=== PATIENT | female | born 1965 | race Caucasian/White ===

== ENCOUNTER 2016-08-03 20:39 | Emergency (ER) | payer MEDICAID ==
[2016-08-03] MEDS ORDERED: Albuterol 0.042% 1.25 MG/3 ML Neb Soln NEB ONE (20:49)
[2016-08-03] MEDS ORDERED: methylPREDNISolone Sodium Succinate 125 MG/2 ML SDV IVPUSH STA (20:54)
[2016-08-03] MEDS ORDERED: Sodium Chloride 0.9% 10 ML Syringe FLUSH PRN (20:55)
--- NOTE | 2016-08-03 21:01 | EDM.PDOC ---
ED HPI GENERAL MEDICAL PROBLEM - General Chief Complaint: Respiratory Problem Stated Complaint: SOB Time Seen by Provider: 08/03/16 20:50 Source of Information: Reports: Patient, EMS History Limitations: Reports: No Limitations - History of Present Illness INITIAL COMMENTS - FREE TEXT/NARRATIVE: Was in the clinic earlier today and had right sided rib pain with some anterior pain with movement. Was not SOB while in the clinic. Was started on celebrex and took her first dose at 6:30 with supper and shortly after that she started having SOB. No cough. Sats when she was picked up by ambulance was 84% and after O2 applied it went up to 96%. She hasn't noted any rash with it. When arriving here she states that breathing was better again. Still has the right sided rib pain. Lungs are clear. No wheezing noted. With movement she did become more SOB. Onset: Sudden Location: Reports: Chest Worsens with: Reports: Movement Right Chest Pain Score (Numeric/FACES): 6 - Related Data Allergies Allergy/AdvReac Type Severity Reaction Status Date / Time No Known Allergies Allergy Verified 08/03/16 21:07 Home Meds: Home Meds Gabapentin 600 mg PO TID 03/02/14 [History] traMADol HCl [Tramadol HCl] 1 tab PO Q4H PRN 03/02/14 [History] Cyanocobalamin (Vitamin B12) [Vitamin B12] 1,000 mcg IM Q30D 05/01/14 [History] Albuterol Sulfate [Proair Hfa] 2 puff INH Q4HR PRN 08/12/15 [History] Tiotropium Br/Olodaterol HCl [Stiolto Respimat Inhal [place]] 2 puff INH DAILY 08/20 [History] Past Medical History Other HEENT History: broke her glasses recently, hard to read without them Respiratory History: Reports: Bronchitis, Recurrent, COPD, SOB Other Respiratory History: Goal: to increase her activity with less SOB; says she gets SOB when trying to clean her house; 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 Rice in July Other Gastrointestinal History: says her appetite is good Other OB/BYN History: Adenocarcinoma of cervix; says some of her SOB and weakness has been since her cancer Musculoskeletal History: Reports: Other (See Below) Other Musculoskeletal History: leg nerve pain. Other Neuro History: B12 deficiency per history, headaches Hematologic History: Reports: Anemia Other Oncologic History: cervical cancer - Past Surgical History Female Surgical History: Reports: Hysterectomy Other Musculoskeletal Surgeries/Procedures:: peripheral neuropathy, nerve damage to her legs and arms Social & Family History - Family History Cardiac: Reports: Hypertension - Tobacco Use Smoking Status *Q: Current Every Day Smoker Years of Tobacco use: 30 Packs/Tins Daily: 0.3 Second Hand Smoke Exposure: Yes - Alcohol Use Days Per Week of Alcohol Use: 0 Number of Drinks Per Day: 2 Total Drinks Per Week: 0 - Recreational Drug Use Recreational Drug Use: No ED ROS GENERAL - Review of Systems Review Of Systems: See Below Constitutional: Denies: Fever, Chills Respiratory: Reports: Shortness of Breath. Denies: Cough Cardiovascular: Reports: Chest Pain Endocrine: Denies: Fatigue GI/Abdominal: Denies: Abdominal Pain, Constipation, Diarrhea, Vomiting Musculoskeletal: Reports: No Symptoms Skin: Denies: Rash, Erythema Neurological: Reports: No Symptoms Psychiatric: Reports: No Symptoms ED EXAM, GENERAL - Physical Exam Exam: See Below Exam Limited By: No Limitations General Appearance: Alert, WD/WN, Moderate Distress Ears: Normal External Exam, Normal Canal, Hearing Grossly Normal, Normal TMs Nose: Normal Inspection, Normal Mucosa Throat/Mouth: Normal Inspection, Normal Oropharynx Head: Atraumatic, Normocephalic Neck: Normal Inspection, Supple, Non-Tender, Full Range of Motion Respiratory/Chest: Lungs Clear, Decreased Breath Sounds (to the bases bilaterally), Other (Is using some accessory muscles to breathe.). No: Rales, Rhonchi, Wheezing Cardiovascular: Regular Rate, Rhythm, No Edema, No Murmur GI/Abdominal: Normal Bowel Sounds, Soft, Non-Tender Back Exam: Normal Inspection, Full Range of Motion Extremities: Normal Inspection, Normal Range of Motion, Non-Tender, No Pedal Edema Neurological: Alert, Oriented Psychiatric: Normal Affect Skin Exam: Warm, Dry, Intact Course - Vital Signs Last Recorded V/S: Last Vital Signs Temp 99.1 F 08/03/16 21:52 Pulse 118 H 08/03/16 21:52 Resp 22 H 08/03/16 21:52 BP 131/93 H 08/03/16 21:52 Pulse Ox 93 L 08/03/16 21:52 - Orders/Labs/Meds Orders: Active Orders 24 hr Category Date Time Status RT Aerosol Therapy [RC] ASDIRECTED Care 08/03/16 20:49 Active CXR [Chest 2V] [CR] Stat Exams 08/03/16 20:48 Taken Sodium Chloride 0.9% [Saline Flush] Med 08/03/16 20:55 Active 10 ml FLUSH ASDIRECTED PRN Saline Lock Insert [OM.PC] Routine Oth 08/03/16 20:55 Ordered Medication Orders Sodium Chloride (Saline Flush) 10 ml FLUSH ASDIRECTED PRN PRN Reason: Keep Vein Open Labs: Laboratory Tests 08/03/16 08/03/16 08/03/16 Range/Units 21:05 21:05 21:05 WBC 6.8 (5.0-10.0) 10^3/uL RBC 4.41 (4.00-5.50) 10^6/uL Hgb 14.9 (12.0-16.0) g/dL Hct 45.2 (37.0-47.0) % MCV 102.5 H (82.0-94.0) fL MCH 33.8 H (27.0-32.0) pg MCHC 33.0 (33.0-38.0) g/dL RDW Coeff of Estefanía 12.7 (11.0-15.0) % Plt Count 257 (150-400) 10^3/uL Neut % (Auto) 58.6 (35-85) % Lymph % (Auto) 24.8 (10-55) % [place] % (Auto) 14.3 (0-16) % Eos % (Auto) 1.9 (0-5) % Baso % (Auto) 0.4 (0-3) % Neut # (Auto) 3.96 (1.80-7.00) 10^3/uL Lymph # (Auto) 1.68 (1.00-4.80) 10^3/uL [place] # (Auto) 0.97 H (0.00-0.80) 10^3/uL Eos # (Auto) 0.13 (0.00-0.45) 10^3/uL Baso # (Auto) 0.03 10^3/uL D-Dimer, Quantitative 0.23 (0.00-0.50) Sodium 145 (136-145) mEq/L Potassium 4.0 D (3.5-5.0) mEq/L Chloride 105 (98-106) mEq/L Carbon Dioxide 34 H (21-32) mmol/L BUN 19 H D (7-18) mg/dL Creatinine 0.7 (0.6-1.0) mg/dL Est Cr Clr Drug Dosing 58.57 mL/min Estimated GFR (MDRD) > 60 (>=60) mL/min Glucose 150 H D (75-99) mg/dL Calcium 9.0 (8.4-10.1) mg/dL C-Reactive Protein < 0.2 L (0.2-0.8) mg/dL Meds: Medications Generic Name Dose Route Start Last Admin Trade Name Freq PRN Reason Stop Dose Admin Sodium Chloride 10 ml 08/03/16 20:55 Saline Flush FLUSH ASDIRECTED PRN Keep Vein Open Discontinued Medications Generic Name Dose Route Start Last Admin Trade Name Freq PRN Reason Stop Dose Admin Albuterol 1.25 mg 08/03/16 20:49 08/03/16 20:55 Proventil Neb Soln NEB 08/03/16 20:50 1.25 mg ONETIME ONE Administration Methylprednisolone Sodium Succinate 125 mg 08/03/16 20:54 08/03/16 21:54 Solu-Medrol IVPUSH 08/03/16 20:55 Not Given NOW STA - Re-Assessments/Exams Free Text/Narrative Re-Assessment/Exam: 08/03/16 21:20 Discussed with pt and daughter and sister that she has a spontaneous pneumothorax on the right side that is the cause of the SOB and pain that she is having. Discussed that she would need t go to [place] for chest tubes and further care. 08/03/16 22:05 Did discuss with [facility] [address] Calle is accepting. Will call [facility] for transport 08/03/16 22:15 [facility] is available for ALS transport and will transfer to [facility]. This was discussed with the pt and she is in agreement with the transfer. Risks of staying in [place] would be to extend the pneumothorax and worsening of her breathing. Benefits of transfer do include chest tube and hospitalist that would be able to manage care and determine cause. Departure - Departure Time of Disposition: 22:23 Disposition: DC/Tfer to Acute Hospital 02 Condition: Serious Clinical Impression: Pneumothorax on right - Discharge Information Forms: ED Department Discharge Additional Instructions: Transfer ALS per [facility] to [facility] with Dr. Luc jay MD. - Problem List Review Problem List Initiated/Reviewed/Updated: Yes - My Orders Last 24 Hours: My Active Orders 08/03/16 20:48 CXR [Chest 2V] [CR] Stat 08/03/16 20:49 RT Aerosol Therapy [RC] ASDIRECTED 08/03/16 20:55 Sodium Chloride 0.9% [Saline Flush] 10 ml FLUSH ASDIRECTED PRN Saline Lock Insert [OM.PC] Routine - Assessment/Plan Last 24 Hours: My Active Orders 08/03/16 20:48 CXR [Chest 2V] [CR] Stat 08/03/16 20:49 RT Aerosol Therapy [RC] ASDIRECTED 08/03/16 20:55 Sodium Chloride 0.9% [Saline Flush] 10 ml FLUSH ASDIRECTED PRN Saline Lock Insert [OM.PC] Routine
[2016-08-03 21:17] LABS: CHLORIDE,CL 105 mEq/L (98-106); SODIUM,NA 145 mEq/L (136-145)
[2016-08-03 21:54] VITALS: BP 131/93
== END 2016-08-03 23:55 ==
LOC: CC.ED 20:39
DX: J93.9 Pneumothorax, unspecified (principal); J44.9 Chronic obstructive pulmonary disease, unspecified; F17.210 Nicotine dependence, cigarettes, uncomplicated; Z86.2 Personal history of diseases of the blood and blood-forming organs and certain disorders involving the immune mechanism; Z90.710 Acquired absence of both cervix and uterus; Z85.41 Personal history of malignant neoplasm of cervix uteri; Z79.899 Other long term (current) drug therapy
CPT/HCPCS: 36415; 71020; 80048; 85025; 85379; 86140; 94640; 94644; 99285

== ENCOUNTER 2016-10-19 22:15 | Inpatient (IN) | payer MEDICAID ==
[2016-10-19 22:55] LABS: BICARBONATE,ARTERIAL 25.1 mm/L (22.0-26.0); O2 DELIVERY DEVICE NASAL CANNULA; O2 SATURATION ARTERIAL 97 % (95-98); PCO2 ARTERIAL 35 mm/Hg0 (35-45); PO2 ARTERIAL 81 mm/Hg (80-100)
--- NOTE | 2016-10-19 22:56 | EDM.PDOC ---
ED HPI GENERAL MEDICAL PROBLEM - General Chief Complaint: Respiratory Problem Stated Complaint: SOB Time Seen by Provider: 10/19/16 22:29 Source of Information: Reports: Patient History Limitations: Reports: No Limitations - History of Present Illness INITIAL COMMENTS - FREE TEXT/NARRATIVE: States that she started to cough some 2 days ago and then today the cough got worse and she is now coughing up brownish green mucus today. Has had some shortness of breathe that has progressively become worse today until coming in tonight. Has chills and feels that she has had a temp but has not taken her temp. She had a recent pneumothorax (08/21) that she was sent to [place] for and then had several chest tubes and eventually had partial lobectomy on the right side due to her lung not staying inflated. Denies any sinus congestion or pain , runny nose, states that her voice still sounds raspy from when then "put that tube down my throat" Onset: Gradual Duration: Day(s): (2), Getting Worse Location: Reports: Chest Severity: Severe Improves with: Reports: Rest Worsens with: Reports: Movement Associated Symptoms: Reports: cough w sputum, Fever/Chills, Shortness of Breath. Denies: Diaphoresis, Nausea/Vomiting - Related Data Allergies Allergy/AdvReac Type Severity Reaction Status Date / Time No Known Allergies Allergy Verified 10/19/16 22:18 Home Meds: Home Meds Gabapentin 600 mg PO TID 03/02/14 [History] Cyanocobalamin (Vitamin B12) [Vitamin B12] 1,000 mcg IM Q30D 05/01/14 [History] Albuterol Sulfate [Proair Hfa] 2 puff INH Q4HR PRN 08/12/15 [History] Tiotropium Br/Olodaterol HCl [Stiolto Respimat Inhal [place]] 2 puff INH DAILY 08/20 [History] Fluticasone Furoate [Arnuity Ellipta] 1 puff INH DAILY 10/19/16 [History] Fluticasone Propionate [Flovent] 1 puff INH DAILY 10/19/16 [History] Past Medical History Other HEENT History: broke her glasses recently, hard to read without them Respiratory History: Reports: Bronchitis, Recurrent, COPD, SOB Other Respiratory History: Goal: to increase her activity with less SOB; says she gets SOB when trying to clean her house; 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 Rice in July Other Gastrointestinal History: says her appetite is good Genitourinary History: Reports: None [employer] History: Reports: , Other (See Below) Other OB/BYN History: Adenocarcinoma of cervix; says some of her SOB and weakness has been since her cancer Musculoskeletal History: Reports: Other (See Below) Other Musculoskeletal History: leg nerve pain. Neurological History: Reports: Neuropathy, Peripheral Other Neuro History: B12 deficiency per history, headaches Hematologic History: Reports: Anemia Oncologic (Cancer) History: Reports: Cervix Other Oncologic History: cervical cancer - Past Surgical History Female Surgical History: Reports: Hysterectomy Other Musculoskeletal Surgeries/Procedures:: peripheral neuropathy, nerve damage to her legs and arms Social & Family History - Family History Family Medical History: Noncontributory Cardiac: Reports: Hypertension - Tobacco Use Smoking Status *Q: Former Smoker Years of Tobacco use: 30 Packs/Tins Daily: 0.3 Used Tobacco, but Quit: Yes Month Tobacco Last Used: 3 MONTHS AGO Second Hand Smoke Exposure: Yes - Alcohol Use Days Per Week of Alcohol Use: 0 Number of Drinks Per Day: 2 Total Drinks Per Week: 0 - Recreational Drug Use Recreational Drug Use: No ED ROS GENERAL - Review of Systems Review Of Systems: See Below Constitutional: Reports: Fever, Chills, Weakness HEENT: Reports: No Symptoms Respiratory: Reports: Shortness of Breath, Cough, Sputum Cardiovascular: Reports: No Symptoms GI/Abdominal: Denies: Constipation, Diarrhea : Reports: No Symptoms Musculoskeletal: Reports: No Symptoms Skin: Reports: No Symptoms Neurological: Reports: No Symptoms ED EXAM, GENERAL - Physical Exam Exam: See Below Exam Limited By: No Limitations General Appearance: Alert, WD/WN, Moderate Distress Ears: Normal External Exam, Normal Canal Nose: Normal Inspection Throat/Mouth: Normal Inspection, Normal Oropharynx Head: Atraumatic, Normocephalic Neck: Normal Inspection, Supple, Non-Tender, Full Range of Motion Respiratory/Chest: Lungs Clear (left ), Decreased Breath Sounds (right upper lobe), Rhonchi (right lower lobe), Other (well healed scars noted to the right lateral chest wall.) Cardiovascular: Regular Rate, Rhythm, No Murmur GI/Abdominal: Normal Bowel Sounds, Soft, Non-Tender, No Organomegaly Back Exam: Normal Inspection, Full Range of Motion Extremities: Normal Inspection, Non-Tender, No Pedal Edema, Normal Capillary Refill Neurological: Alert, Oriented Skin Exam: Warm, Dry, Intact Course - Vital Signs Last Recorded V/S: Last Vital Signs Temp 99.9 F 10/19/16 22:29 Pulse 117 H 10/19/16 22:29 Resp 24 H 10/19/16 22:29 BP 143/82 H 10/19/16 22:29 Pulse Ox 87 L 10/19/16 22:29 - Orders/Labs/Meds Orders: Active Orders 24 hr Category Date Time Status Chest 2V [CR] Stat Exams 10/19/16 22:24 Taken BASIC METABOLIC PANEL,BMP [CHEM] Stat Lab 10/19/16 22:24 Ordered BLOOD GAS ARTERIAL [BG] Stat Lab 10/19/16 22:24 Ordered CBC WITH AUTO DIFF [HEME] Stat Lab 10/19/16 22:24 Ordered - Re-Assessments/Exams Free Text/Narrative Re-Assessment/Exam: 10/19/16 22:46 Discussed xray result with Dr. Jay from radiology that she has a right sided pneumonia but no recurrent pneumothorax. 10/19/16 22:55 Discussed with pt and family results of CXR and that she would need to be admitted and put on IV antibiotics and fluids. Blood cultures will be obtained as well as sputum cultures if able. Departure - Departure Time of Disposition: 23:09 Disposition: Admitted As Inpatient 64 Condition: Serious Clinical Impression: Pneumonia Qualifiers: Pneumonia type: due to unspecified organism Laterality: right Lung location: lower lobe of lung Qualified Code(s): J18.1 - Lobar pneumonia, unspecified organism - Discharge Information Referrals: Mavis Shine PA [Primary Care Provider] - - Problem List & Annotations (1) Pneumonia SNOMED Code(s): 506035076 Code(s): J18.9 - PNEUMONIA, UNSPECIFIED ORGANISM Status: Acute Priority: High Current Visit: Yes Qualifiers: Pneumonia type: due to unspecified organism Laterality: right Lung location: lower lobe of lung Qualified Code(s): J18.1 - Lobar pneumonia, unspecified organism (2) Dyspnea SNOMED Code(s): 631793853 Code(s): R06.00 - DYSPNEA, UNSPECIFIED Status: Acute Priority: High Current Visit: Yes Onset Date: 03/22/15 Qualifiers: Dyspnea type: shortness of breath Qualified Code(s): R06.02 - Shortness of breath (3) Fever and chills SNOMED Code(s): 761173787 Code(s): R50.9 - FEVER, UNSPECIFIED Status: Acute Priority: High Current Visit: Yes (4) Hypoxia SNOMED Code(s): 269399325, 765023586 Code(s): R09.02 - HYPOXEMIA Status: Acute Priority: High Current Visit : Yes Onset Date: 03/22/15 - Problem List Review Problem List Initiated/Reviewed/Updated: Yes - My Orders Last 24 Hours: My Active Orders 10/19/16 22:24 Chest 2V [CR] Stat BASIC METABOLIC PANEL,BMP [CHEM] Stat BLOOD GAS ARTERIAL [BG] Stat CBC WITH AUTO DIFF [HEME] Stat - Assessment/Plan Admission H&P: Please use this note as an admission H&P Last 24 Hours: My Active Orders 10/19/16 22:24 Chest 2V [CR] Stat BASIC METABOLIC PANEL,BMP [CHEM] Stat BLOOD GAS ARTERIAL [BG] Stat CBC WITH AUTO DIFF [HEME] Stat Plan: admit to acute care to Dr. Beck services
[2016-10-19 22:58] LABS: CHLORIDE,CL 105 mEq/L (98-106); SODIUM,NA 143 mEq/L (136-145)
[2016-10-19] MEDS ORDERED: Ibuprofen 200 MG Tab PO PRN (23:27)
[2016-10-19] MEDS ORDERED: Sodium Chloride 0.9% 10 ML Syringe FLUSH PRN (23:27)
[2016-10-19] MEDS ORDERED: methylPREDNISolone Sodium Succinate 125 MG/2 ML SDV IVPUSH SCH (23:30)
[2016-10-19] MEDS ORDERED: Azithromycin 500 MG in Sodium Chloride 0.9% 250 ML IV SCH (23:30)
[2016-10-20] MEDS: Acetaminophen 325 MG Tab PO PRN ×2 (00:19→16:02)
[2016-10-20] MEDS: cefTRIAXone 1 GM Vial IVPUSH SCH ×2 (00:22→23:53)
[2016-10-20] MEDS: Lactated Ringers 1,000 ML IV SCH ×2 (00:23→11:45)
[2016-10-20] MEDS: Enoxaparin 30 MG/0.3 ML Syringe SUBCUT SCH ×2 (00:25→23:53)
[2016-10-20] MEDS: Albuterol/Ipratropium 3.0-0.5 MG/3 ML Neb Soln NEB SCH ×5 (04:28→20:04)
[2016-10-20] MEDS ORDERED: ARNUITY ELLIPTA INH SCH (08:00)
[2016-10-20] MEDS ORDERED: Mirtazapine 15 MG Tab PO SCH (08:00)
[2016-10-20] MEDS ORDERED: Non-Formulary Medication 1 Each (Fluticasone Propionate [Flovent] 1 PUFF) INH SCH (08:00)
[2016-10-20] MEDS: Gabapentin 300 MG Cap PO SCH ×3 (08:09→20:04)
[2016-10-20] MEDS ORDERED: Iopamidol 612 MG/ML 100 ML Bottle IVPUSH ONE (08:57)
--- NOTE | 2016-10-20 09:41 | PN ---
DATE: 10/20/2016 S: Sraanya Michelle was admitted with a right upper lobe pneumonitis and high C- reactive protein. O: On examination, NECK: Supple. CHEST: Crepitus throughout the upper lobe, wheezing throughout. ASSESSMENT: PNEUMONITIS AND CHRONIC OBSTRUCTIVE PULMONARY DISEASE. P: I am going to CT her chest and look better this area. FER/ADRIA /[id number]
[2016-10-20] MEDS: TIOTROPIUM INH SCH (13:45)
[2016-10-20] MEDS: OLODATEROL INH SCH (13:45)
[2016-10-20] MEDS: ARNUITY ELLIPTA INH SCH (16:02)
[2016-10-20] MEDS ORDERED: methylPREDNISolone Sodium Succinate 125 MG/2 ML SDV IVPUSH ONE (16:30)
[2016-10-20] MEDS: Mirtazapine 15 MG Tab PO SCH (20:03)
[2016-10-20] MEDS: Azithromycin 500 MG in Sodium Chloride 0.9% 250 ML IV SCH (20:04)
--- NOTE | 2016-10-21 07:17 | PCM.PN ---
- General Info Date of Service: 10/21/16 Functional Status: Reports: Pain Controlled, Tolerating Diet - Review of Systems General: Reports: No Symptoms HEENT: Reports: Post Nasal Drip, Sinus Congestion, Rhinitis Pulmonary: Reports: Shortness of Breath, Cough, Sputum Cardiovascular: Reports: No Symptoms Gastrointestinal: Reports: No Symptoms Genitourinary: Reports: No Symptoms Musculoskeletal: Reports: No Symptoms Skin: Reports: No Symptoms Neurological: Reports: No Symptoms Psychiatric: Reports: No Symptoms - Patient Data Vitals - Most Recent: Last Vital Signs Temp 97.0 F 10/21/16 03:57 Pulse 74 10/21/16 03:57 Resp 18 10/21/16 03:57 BP 110/65 10/21/16 03:57 Pulse Ox 98 10/21/16 03:57 Weight - Most Recent: 101 lb 13.657 oz I&O - Last 24 Hours: Intake & Output 10/20/16 10/21/16 10/21/16 22:59 06:59 14:59 Intake Total 1200 860 Output Total 750 1500 Balance 450 -640 Lab Results Last 24 Hours: Laboratory Results - last 24 hr 10/20/16 10/20/16 Range/Units 07:10 07:15 WBC 9.0 (5.0-10.0) 10^3/uL RBC 3.32 L (4.00-5.50) 10^6/uL Hgb 10.2 L (12.0-16.0) g/dL Hct 31.9 L (37.0-47.0) % MCV 96.1 H (82.0-94.0) fL MCH 30.7 (27.0-32.0) pg MCHC 32.0 L (33.0-38.0) g/dL RDW Coeff of Estefanía 11.7 (11.0-15.0) % Plt Count 317 (150-400) 10^3/uL Neut % (Auto) 94.5 H (35-85) % Lymph % (Auto) 4.3 L (10-55) % [place] % (Auto) 1.0 (0-16) % Eos % (Auto) 0.1 (0-5) % Baso % (Auto) 0.1 (0-3) % Neut # (Auto) 8.51 H (1.80-7.00) 10^3/uL Lymph # (Auto) 0.39 L (1.00-4.80) 10^3/uL [place] # (Auto) 0.09 (0.00-0.80) 10^3/uL Eos # (Auto) 0.01 (0.00-0.45) 10^3/uL Baso # (Auto) 0.01 10^3/uL Magnesium 1.9 (1.8-2.4) mg/dL [place] Results Last 24 Hours: Microbiology 10/20/16 09:19 Gram Stain - Final Sputum - Expectorated Med Orders - Current: Current Medications Acetaminophen (Tylenol) 650 mg PO Q4H PRN PRN Reason: Pain (Mild 1-3)/fever Last Admin: 10/20/16 16:02 Dose: 650 mg Albuterol/Ipratropium (Duoneb 3.0-0.5 Mg/3 Ml) 3 ml NEB QIDRT [facility] Last Admin: 10/20/16 20:04 Dose: 3 ml Ceftriaxone Sodium (Rocephin) 1 gm IVPUSH Q24H [facility] Last Admin: 10/20/16 23:53 Dose: 1 gm Enoxaparin Sodium (Lovenox) 30 mg SUBCUT Q24H [facility] Last Admin: 10/20/16 23:53 Dose: 30 mg Gabapentin (Neurontin) 600 mg PO TID [facility] Last Admin: 10/20/16 20:04 Dose: 600 mg Lactated Ringer's (Ringers, Lactated) 1,000 mls @ 100 mls/hr IV ASDIRECTED [facility] Last Admin: 10/20/16 11:45 Dose: 100 mls/hr Azithromycin 500 mg/ Sodium (Chloride) 250 mls @ 250 mls/hr IV Q24H [facility] Last Admin: 10/20/16 20:04 Dose: 250 mls/hr Ibuprofen (Motrin) 600 mg PO Q6H PRN PRN Reason: Pain (mild 1-3) Methylprednisolone Sodium Succinate (Solu-Medrol) 62.5 mg IVPUSH Q24H [facility] Mirtazapine (Remeron) 15 mg PO BEDTIME [facility] Last Admin: 10/20/16 20:03 Dose: 15 mg Ptoml [Stiolto (Respimat Inhal [place]) 2 puff INH DAILY [facility] Last Admin: 10/20/16 13:45 Dose: 2 puff Ptom [Arnuity (Ellipta] 1 Puff)) 1 puff INH 1600 [facility] Last Admin: 10/20/16 16:02 Dose: 1 puff Sodium Chloride (Saline Flush) 10 ml FLUSH ASDIRECTED PRN PRN Reason: Keep Vein Open Last Admin: 10/20/16 00:27 Dose: 10 ml Discontinued Medications Azithromycin 500 mg/ Sodium (Chloride) 250 mls @ 250 mls/hr IV Q24H [facility] Last Admin: 10/20/16 00:26 Dose: 250 mls/hr Iopamidol (Isovue-300 (61%)) 100 ml IVPUSH ONETIME ONE Stop: 10/20/16 08:58 Last Admin: 10/20/16 09:23 Dose: 100 ml Methylprednisolone Sodium Succinate (Solu-Medrol) 62.5 mg IVPUSH Q24H [facility] Last Admin: 10/20/16 00:19 Dose: 62.5 mg Methylprednisolone Sodium Succinate (Solu-Medrol) 62.5 mg IVPUSH ONETIME ONE Stop: 10/20/16 16:31 Last Admin: 10/20/16 17:36 Dose: 62.5 mg Mirtazapine (Remeron) 15 mg PO DAILY [place] Ptom [Arnuity (Ellipta] 1 Puff)) 1 puff INH DAILY [facility] Last Admin: 10/20/16 16:03 Dose: Not Given - Exam Quality Assessment: Supplemental Oxygen General: Alert, Oriented, Cooperative, No Acute Distress Lungs: Decreased Breath Sounds (moderate) Cardiovascular: Regular Rate, Regular Rhythm GI/Abdominal Exam: Soft, Non-Tender Extremities: Normal Inspection, Normal Range of Motion, Non-Tender, No Pedal Edema, Normal Capillary Refill Peripheral Pulses: 2+: Posterior Tibial (L), Posterior Tibial (R) Skin: Warm, Dry, Intact Neurological: No New Focal Deficit, Normal Speech Psy/Mental Status: Alert, Normal Affect, Normal Mood - Problem List Review Problem List Initiated/Reviewed/Updated: Yes - Plan Plan:: This patient is a 51 year old female that was admitted to the hospital with pneumonia, dypsnea, and oxygen saturations down to 80s. The patient is currently on breathing treatments and antibiotics. The patient today is saturation of 90% on RA, 93% on 2L NC. When I enter the room this morning, she is not wearing oxygen. She does keep removing this oxygen. The patient does not have breathing treatments at home. The patient does report that being here and doing the breathing treatments has helped her breathing. I discussed with PCP yesterday, the plan is the patient will stay until Sunday when he can see her again. The patient is conversing in full and complete sentences without difficulty. The patient is alert and oriented. I have ordered labs for this morning. Will continue abx treatment, breathing treatments, and admit until Sunday for PCP.
[2016-10-21 07:59] LABS: CHLORIDE,CL 109 mEq/L (98-106); SODIUM,NA 146 mEq/L (136-145)
[2016-10-21] MEDS: Gabapentin 300 MG Cap PO SCH ×3 (08:54→20:00)
[2016-10-21] MEDS: methylPREDNISolone Sodium Succinate 125 MG/2 ML SDV IVPUSH SCH (08:55)
[2016-10-21] MEDS: Lactated Ringers 1,000 ML IV SCH ×2 (08:56→20:00)
[2016-10-21] MEDS: Albuterol/Ipratropium 3.0-0.5 MG/3 ML Neb Soln NEB SCH ×4 (08:56→20:00)
[2016-10-21] MEDS: TIOTROPIUM INH SCH (08:57)
[2016-10-21] MEDS: OLODATEROL INH SCH (08:57)
[2016-10-21] MEDS: ARNUITY ELLIPTA INH SCH (16:04)
[2016-10-21] MEDS: Mirtazapine 15 MG Tab PO SCH (20:00)
[2016-10-21] MEDS: Azithromycin 500 MG in Sodium Chloride 0.9% 250 ML IV SCH (20:00)
[2016-10-22] MEDS: cefTRIAXone 1 GM Vial IVPUSH SCH ×2 (00:18→23:47)
[2016-10-22] MEDS: Enoxaparin 30 MG/0.3 ML Syringe SUBCUT SCH ×2 (00:18→23:47)
[2016-10-22 07:37] LABS: CHLORIDE,CL 109 mEq/L (98-106); SODIUM,NA 147 mEq/L (136-145)
[2016-10-22] MEDS: Acetaminophen 325 MG Tab PO PRN (08:10)
[2016-10-22] MEDS: Gabapentin 300 MG Cap PO SCH ×3 (08:11→19:48)
[2016-10-22] MEDS: methylPREDNISolone Sodium Succinate 125 MG/2 ML SDV IVPUSH SCH (08:11)
[2016-10-22] MEDS: TIOTROPIUM INH SCH (08:12)
[2016-10-22] MEDS: Albuterol/Ipratropium 3.0-0.5 MG/3 ML Neb Soln NEB SCH ×4 (08:12→20:07)
[2016-10-22] MEDS: OLODATEROL INH SCH (08:12)
--- NOTE | 2016-10-22 12:31 | PCM.PN ---
- General Info Date of Service: 10/22/16 Functional Status: Reports: Pain Controlled - Review of Systems General: Reports: No Symptoms HEENT: Reports: No Symptoms Pulmonary: Reports: Shortness of Breath, Cough, Sputum Cardiovascular: Reports: No Symptoms Gastrointestinal: Reports: No Symptoms Genitourinary: Reports: No Symptoms Musculoskeletal: Reports: No Symptoms Skin: Reports: No Symptoms Neurological: Reports: No Symptoms Psychiatric: Reports: No Symptoms - Patient Data Vitals - Most Recent: Last Vital Signs Temp 97.8 F 10/22/16 07:54 Pulse 92 10/22/16 07:54 Resp 18 10/22/16 07:54 BP 114/81 10/22/16 07:54 Pulse Ox 96 10/22/16 07:54 Weight - Most Recent: 101 lb 4.8 oz I&O - Last 24 Hours: Intake & Output 10/21/16 10/22/16 10/22/16 22:59 06:59 14:59 Intake Total 2900 860 300 Output Total 1800 1000 Balance 1100 -140 300 Lab Results Last 24 Hours: Laboratory Results - last 24 hr 10/22/16 10/22/16 Range/Units 07:15 07:15 WBC 6.6 (5.0-10.0) 10^3/uL RBC 3.28 L (4.00-5.50) 10^6/uL Hgb 9.9 L (12.0-16.0) g/dL Hct 32.3 L (37.0-47.0) % MCV 98.5 H (82.0-94.0) fL MCH 30.2 (27.0-32.0) pg MCHC 30.7 L (33.0-38.0) g/dL RDW Coeff of Estefanía 12.0 (11.0-15.0) % Plt Count 351 (150-400) 10^3/uL Neut % (Auto) 66.0 (35-85) % Lymph % (Auto) 21.5 (10-55) % [place] % (Auto) 11.2 (0-16) % Eos % (Auto) 1.1 (0-5) % Baso % (Auto) 0.2 (0-3) % Neut # (Auto) 4.38 (1.80-7.00) 10^3/uL Lymph # (Auto) 1.42 (1.00-4.80) 10^3/uL [place] # (Auto) 0.74 (0.00-0.80) 10^3/uL Eos # (Auto) 0.07 (0.00-0.45) 10^3/uL Baso # (Auto) 0.01 10^3/uL Sodium 147 H (136-145) mEq/L Potassium 3.6 (3.5-5.0) mEq/L Chloride 109 H (98-106) mEq/L Carbon Dioxide 32 (21-32) mmol/L BUN 11 (7-18) mg/dL Creatinine 0.5 L (0.6-1.0) mg/dL Est Cr Clr Drug Dosing 94.39 mL/min Estimated GFR (MDRD) > 60 (>=60) mL/min Glucose 92 D (75-99) mg/dL Calcium 8.5 (8.4-10.1) mg/dL C-Reactive Protein 6.2 H (0.2-0.8) mg/dL [place] Results Last 24 Hours: Microbiology 10/20/16 09:19 Gram Stain - Final Sputum - Expectorated Sputum Culture - Preliminary Probable Strep Pneumoniae Med Orders - Current: Current Medications Acetaminophen (Tylenol) 650 mg PO Q4H PRN PRN Reason: Pain (Mild 1-3)/fever Last Admin: 10/22/16 08:10 Dose: 650 mg Albuterol/Ipratropium (Duoneb 3.0-0.5 Mg/3 Ml) 3 ml NEB QIDRT [facility] Last Admin: 10/22/16 08:12 Dose: 3 ml Ceftriaxone Sodium (Rocephin) 1 gm IVPUSH Q24H [facility] Last Admin: 10/22/16 00:18 Dose: 1 gm Enoxaparin Sodium (Lovenox) 30 mg SUBCUT Q24H [facility] Last Admin: 10/22/16 00:18 Dose: 30 mg Gabapentin (Neurontin) 600 mg PO TID [facility] Last Admin: 10/22/16 08:11 Dose: 600 mg Lactated Ringer's (Ringers, Lactated) 1,000 mls @ 100 mls/hr IV ASDIRECTED [facility] Last Admin: 10/21/16 20:00 Dose: 100 mls/hr Azithromycin 500 mg/ Sodium (Chloride) 250 mls @ 250 mls/hr IV Q24H [facility] Last Admin: 10/21/16 20:00 Dose: 250 mls/hr Ibuprofen (Motrin) 600 mg PO Q6H PRN PRN Reason: Pain (mild 1-3) Methylprednisolone Sodium Succinate (Solu-Medrol) 62.5 mg IVPUSH Q24H [facility] Last Admin: 10/22/16 08:11 Dose: 62.5 mg Mirtazapine (Remeron) 15 mg PO BEDTIME [facility] Last Admin: 10/21/16 20:00 Dose: 15 mg Ptoml [Stiolto (Respimat Inhal Spra) 2 puff INH DAILY [facility] Last Admin: 10/22/16 08:12 Dose: 2 puff Ptom [Arnuity (Ellipta] 1 Puff)) 1 puff INH 1600 [facility] Last Admin: 10/21/16 16:04 Dose: 1 puff Sodium Chloride (Saline Flush) 10 ml FLUSH ASDIRECTED PRN PRN Reason: Keep Vein Open Last Admin: 10/20/16 00:27 Dose: 10 ml Discontinued Medications Azithromycin 500 mg/ Sodium (Chloride) 250 mls @ 250 mls/hr IV Q24H [facility] Last Admin: 10/20/16 00:26 Dose: 250 mls/hr Iopamidol (Isovue-300 (61%)) 100 ml IVPUSH ONETIME ONE Stop: 10/20/16 08:58 Last Admin: 10/20/16 09:23 Dose: 100 ml Methylprednisolone Sodium Succinate (Solu-Medrol) 62.5 mg IVPUSH Q24H [facility] Last Admin: 10/20/16 00:19 Dose: 62.5 mg Methylprednisolone Sodium Succinate (Solu-Medrol) 62.5 mg IVPUSH ONETIME ONE Stop: 10/20/16 16:31 Last Admin: 10/20/16 17:36 Dose: 62.5 mg Mirtazapine (Remeron) 15 mg PO DAILY [facility] Ptom [Arnuity (Ellipta] 1 Puff)) 1 puff INH DAILY [facility] Last Admin: 10/20/16 16:03 Dose: Not Given - Exam Quality Assessment: Supplemental Oxygen General: Alert, Oriented, Cooperative, No Acute Distress Neck: Supple Lungs: Decreased Breath Sounds (moderately throughout), Wheezing Cardiovascular: Regular Rate, Regular Rhythm GI/Abdominal Exam: Soft, Non-Tender Back Exam: Normal Inspection, Full Range of Motion Extremities: Normal Inspection, Normal Range of Motion, Non-Tender, No Pedal Edema, Normal Capillary Refill Peripheral Pulses: 2+: Radial (L), Radial (R) Skin: Warm, Dry, Intact Neurological: No New Focal Deficit Psy/Mental Status: Alert, Normal Affect, Normal Mood - Problem List Review Problem List Initiated/Reviewed/Updated: Yes - Plan Plan:: 10/21/16 When I enter the room this morning, she is not wearing oxygen. She does keep removing this oxygen. The patient does not have breathing treatments at home. The patient does report that being here and doing the breathing treatments has helped her breathing. I discussed with PCP yesterday, the plan is the patient will stay until Sunday when he can see her again. The patient is conversing in full and complete sentences without difficulty. I have ordered labs for this morning. Will continue abx treatment, breathing treatments, and admit until Sunday for PCP. This patient is a 51 year old female that was admitted to the hospital with pneumonia, dypsnea, and oxygen saturations down to 80s. The patient is currently on breathing treatments and antibiotics. The patient today is saturation of 90% on RA, 93% on 2L NC.The patient is alert and oriented. I have ordered labs for this morning. Will continue abx treatment, breathing treatments , and admit until Sunday for PCP. The patient reports she is feeling better than yesterday. She has been able to get up and wal around the halls without oxygen, she does become short of breath more so when doing this and has to take periods of rest.
[2016-10-22] MEDS: ARNUITY ELLIPTA INH SCH (16:24)
[2016-10-22] MEDS: Azithromycin 500 MG in Sodium Chloride 0.9% 250 ML IV SCH (19:47)
[2016-10-22] MEDS: Mirtazapine 15 MG Tab PO SCH (19:47)
[2016-10-23 07:30] VITALS: BP 117/77
[2016-10-23 07:58] LABS: CHLORIDE,CL 108 mEq/L (98-106); SODIUM,NA 146 mEq/L (136-145)
[2016-10-23] MEDS: Gabapentin 300 MG Cap PO SCH (08:27)
[2016-10-23] MEDS: methylPREDNISolone Sodium Succinate 125 MG/2 ML SDV IVPUSH SCH (08:28)
[2016-10-23] MEDS: Albuterol/Ipratropium 3.0-0.5 MG/3 ML Neb Soln NEB SCH (08:29)
[2016-10-23] MEDS: TIOTROPIUM INH SCH (08:29)
[2016-10-23] MEDS: OLODATEROL INH SCH (08:29)
--- NOTE | 2016-10-23 14:20 | DISCH ---
HOSPITAL COURSE: Saranya Michelle is a young white female came in with moderate severe COPD and the right upper lobe pneumonitis. I did do a CT scan of her chest just to look at that area better, that is pending. On admission, hemoglobin 11.2, discharge time at 10.3. C-reactive protein on admission was 33.7, prior to discharge 3.9. Panel-8 looked good. Potassium a little bit low prior to discharge, but everything else looks fine. DISPOSITION: The patient now discharged home. We will check her back in the clinic on Sunday. I did do an anemia workup which is pending. DISCHARGE MEDICATIONS: Home medications plus Levaquin 500 mg daily for 7 days. DISCHARGE DIAGNOSIS: 1. PNEUMONIA. 2. CHRONIC OBSTRUCTIVE PULMONARY DISEASE. 3. ANEMIA. MIRELA /[id number]
== END 2016-10-23 09:53 | disposition home or self-care (01) | DRG 195 ==
LOC: CC.ED 22:15 → UNDOADMIN 23:25 → CC.MS 23:25
PROVIDERS: ADMIT Physician Assistant Medical; ATTEND General Practice
DX: J18.9 Pneumonia, unspecified organism (principal); J44.9 Chronic obstructive pulmonary disease, unspecified; G62.9 Polyneuropathy, unspecified; Z87.891 Personal history of nicotine dependence; R50.9 Fever, unspecified; R09.02 Hypoxemia; D64.9 Anemia, unspecified; Z90.2 Acquired absence of lung [part of]; Z79.899 Other long term (current) drug therapy; Z85.41 Personal history of malignant neoplasm of cervix uteri
CPT/HCPCS: 36415; 36600; 71020; 71260; 80048; 82607; 82746; 82803; 83735; 85025; 85651; 86140; 87040; 87070; 87205; 94640; 94640-76; 99285; A9270-GY; J0456; J0696; J1650; J2930; J7050; J7120; Q9967

== ENCOUNTER 2017-02-12 09:25 | Emergency (ER) | payer MEDICAID ==
[2017-02-12] MEDS ORDERED: fentaNYL 100 MCG/2 ML SDV IVPUSH ONE (09:46)
[2017-02-12 10:05] LABS: CHLORIDE,CL 102 mEq/L (98-106); SODIUM,NA 139 mEq/L (136-145)
[2017-02-12 10:09] VITALS: BP 115/82
--- NOTE | 2017-02-12 10:54 | EDM.PDOC ---
ED HPI GENERAL MEDICAL PROBLEM - General Chief Complaint: Chest Pain Stated Complaint: HARD TIME BREATHING Time Seen by Provider: 02/12/17 09:35 Source of Information: Reports: Patient History Limitations: Reports: No Limitations - History of Present Illness INITIAL COMMENTS - FREE TEXT/NARRATIVE: Patient presents with shortness of breath and right chest pain. States the pain is very sharp, awoke her around 5 am today. The pain is around the area from her previous lobectomy that she had done due to a spontaneous pneumothorax. Patient does have issues with shortness of breath, feels it is worse today. Hasn't had a cough, no wheezing or fever. She admits to being nauseated at times but feels related to pain. Was in to see Dr. Beck after , was not having this pain at that time but they did do a follow up CT as recommended. States they called this am and advised her that she needed to be seen next week to discuss with Dr. Beck but questioning results now today. Onset: Today, Sudden Duration: Hour(s): Location: Reports: Chest Quality: Reports: Sharp, Throbbing Severity: Severe Improves with: Reports: None Associated Symptoms: Reports: Loss of Appetite, Nausea/Vomiting, Shortness of Breath. Denies: Cough, cough w sputum, Fever/Chills R SIDE/RIB Pain Score (Numeric/FACES): 10 - Related Data Allergies Allergy/AdvReac Type Severity Reaction Status Date / Time No Known Allergies Allergy Verified 02/12/17 10:18 Home Meds: Home Meds Gabapentin 600 mg PO TID 03/02/14 [History] Cyanocobalamin (Vitamin B12) [Vitamin B12] 1,000 mcg IM Q30D 05/01/14 [History] Albuterol Sulfate [Proair Hfa] 2 puff INH Q4HR PRN 08/12/15 [History] Tiotropium Br/Olodaterol HCl [Stiolto Respimat Inhal [place]] 2 puff INH DAILY 08/20 [History] Fluticasone Furoate [Arnuity Ellipta] 1 puff INH DAILY 10/19/16 [History] Mirtazapine 15 mg PO BEDTIME 10/19/16 [History] Past Medical History HEENT History: Reports: Impaired Vision Other HEENT History: broke her glasses recently, hard to read without them Cardiovascular History: Reports: SOB on Exertion Respiratory History: Reports: Bronchitis, Recurrent, COPD, Pneumonia, Recurrent , Pneumothorax, SOB Other Respiratory History: Goal: to increase her activity with less SOB; says she gets SOB when trying to clean her house; 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 Neurological History: Reports: Neuropathy, Peripheral Other Neuro History: B12 deficiency per history, headaches Psychiatric History: Reports: Anxiety, Depression Hematologic History: Reports: Anemia Oncologic (Cancer) History: Reports: Cervix Other Oncologic History: cervical cancer - Past Surgical History Respiratory Surgical History: Reports: Pneumonectomy GI Surgical History: Reports: Appendectomy Female Surgical History: Reports: Hysterectomy Other Musculoskeletal Surgeries/Procedures:: peripheral neuropathy, nerve damage to her legs and arms Social & Family History - Family History Family Medical History: Noncontributory Cardiac: Reports: Hypertension - Tobacco Use Smoking Status *Q: Former Smoker Years of Tobacco use: 30 Packs/Tins Daily: 0.3 Used Tobacco, but Quit: Yes Month Tobacco Last Used: july 2016 Second Hand Smoke Exposure: Yes - Caffeine Use Caffeine Use: Reports: Coffee - Alcohol Use Days Per Week of Alcohol Use: 0 Number of Drinks Per Day: 2 Total Drinks Per Week: 0 - Recreational Drug Use Recreational Drug Use: No ED ROS GENERAL - Review of Systems Review Of Systems: See Below Constitutional: Reports: Decreased Appetite. Denies: Fever, Chills, Malaise, Weakness, Weight Loss HEENT: Denies: Ear Pain, Sinus Problem, Throat Pain Respiratory: Reports: Shortness of Breath, Pleuritic Chest Pain. Denies: Wheezing, Cough, Hemoptysis Cardiovascular: Denies: Chest Pain, Edema, Lightheadedness Endocrine: Denies: Fatigue GI/Abdominal: Reports: Nausea. Denies: Abdominal Pain, Vomiting : Reports: No Symptoms Musculoskeletal: Reports: Back Pain Skin: Reports: No Symptoms Neurological: Reports: No Symptoms Psychiatric: Reports: No Symptoms ED EXAM, GENERAL - Physical Exam Exam: See Below Exam Limited By: No Limitations General Appearance: Alert, WD/WN, No Apparent Distress Ears: Normal External Exam, Normal TMs Nose: Normal Inspection, Normal Mucosa Throat/Mouth: Normal Inspection, Normal Oropharynx Head: Normocephalic Neck: Normal Inspection, Supple, Non-Tender Respiratory/Chest: No Respiratory Distress, Lungs Clear, Decreased Breath Sounds Cardiovascular: Regular Rate, Rhythm GI/Abdominal: Normal Bowel Sounds, Soft, Non-Tender Extremities: Normal Range of Motion Neurological: Alert, Oriented Skin Exam: Warm, Dry Course - Vital Signs Last Recorded V/S: Last Vital Signs Temp 97.5 F 02/12/17 10:08 Pulse 98 02/12/17 10:08 Resp 20 02/12/17 10:08 BP 115/82 02/12/17 10:08 Pulse Ox 92 L 02/12/17 10:08 - Orders/Labs/Meds Labs: Laboratory Tests 02/12/17 02/12/17 02/12/17 Range/Units 09:44 09:45 09:45 WBC 7.7 (5.0-10.0) 10^3/uL RBC 4.45 (4.00-5.50) 10^6/uL Hgb 13.3 (12.0-16.0) g/dL Hct 41.2 (37.0-47.0) % MCV 92.6 (82.0-94.0) fL MCH 29.9 (27.0-32.0) pg MCHC 32.3 L (33.0-38.0) g/dL RDW Coeff of Estefanía 12.7 (11.0-15.0) % Plt Count 327 (150-400) 10^3/uL Neut % (Auto) 66.6 (35-85) % Lymph % (Auto) 16.1 (10-55) % [place] % (Auto) 11.5 (0-16) % Eos % (Auto) 5.3 H (0-5) % Baso % (Auto) 0.5 (0-3) % Neut # (Auto) 5.15 (1.80-7.00) 10^3/uL Lymph # (Auto) 1.25 (1.00-4.80) 10^3/uL [place] # (Auto) 0.89 H (0.00-0.80) 10^3/uL Eos # (Auto) 0.41 (0.00-0.45) 10^3/uL Baso # (Auto) 0.04 10^3/uL D-Dimer, Quantitative 0.49 (0.00-0.50) Sodium 139 (136-145) mEq/L Potassium 3.9 (3.5-5.0) mEq/L Chloride 102 (98-106) mEq/L Carbon Dioxide 29 (21-32) mmol/L BUN 20 H D (7-18) mg/dL Creatinine 0.7 (0.6-1.0) mg/dL Est Cr Clr Drug Dosing 73.21 mL/min Estimated GFR (MDRD) > 60 (>=60) mL/min Glucose 109 H (75-99) mg/dL Calcium 9.4 (8.4-10.1) mg/dL C-Reactive Protein 1.5 H (0.2-0.8) mg/dL Meds: Medications Discontinued Medications Generic Name Dose Route Start Last Admin Trade Name Freq PRN Reason Stop Dose Admin Fentanyl 25 mcg 02/12/17 09:46 02/12/17 10:00 Sublimaze IVPUSH 02/12/17 09:47 25 mcg ONETIME ONE Administration - Re-Assessments/Exams Free Text/Narrative Re-Assessment/Exam: 02/12/17 Labs normal today. Sats are stable on room air. Advised patient of recent CT of chest that did show enlargement of a spiculated nodule concerning of neoplasm. Discussed further arrangements that need to be done for biopsy or evaluation of this. Questions answered. She verbalizes understanding. Departure - Departure Time of Disposition: 10:52 Disposition: Home, Self-Care 01 Condition: Fair Clinical Impression: Pulmonary nodule, Pleuritic chest pain - Discharge Information Forms: ED Department Discharge Additional Instructions: 1. Push fluids 2. Rest 3. [place] 5/325 1-2 as needed every 6 hours for pain 4. Will contact you when referrals arranged for the pulmonary nodule
== END 2017-02-12 11:06 | disposition home or self-care (01) ==
LOC: CC.ED 09:25
DX: R07.81 Pleurodynia (principal); R91.1 Solitary pulmonary nodule; Z87.891 Personal history of nicotine dependence; J44.9 Chronic obstructive pulmonary disease, unspecified; F32.9 Major depressive disorder, single episode, unspecified; Z79.51 Long term (current) use of inhaled steroids
CPT/HCPCS: 36415; 80048; 85025; 85379; 86140; 96374; 99284; J3010

== ENCOUNTER 2017-06-20 18:37 | Emergency (ER) | payer MEDICAID ==
[2017-06-20] MEDS ORDERED: Ondansetron 4 MG Tab.DIS PO ONE (18:38)
--- NOTE | 2017-06-20 19:10 | EDM.PDOC ---
ED HPI GENERAL MEDICAL PROBLEM - General Chief Complaint: Abdominal Pain Stated Complaint: diarrhea, vomitting abd pain Time Seen by Provider: 06/20/17 18:58 Source of Information: Reports: Patient History Limitations: Reports: No Limitations - History of Present Illness INITIAL COMMENTS - FREE TEXT/NARRATIVE: States about 1 pm today she developed abdominal pain that radiated across the top and down the left side. Shortly after that she started having multiple diarrhea stools and has vomited twice. No blood noted in either. Has had some chills but doesn't feel that she has had fever. Was fine until the pain started. She ate an egg sandwich this morning. Hasn't ate anything that someone else hasn't ate. Denies any SOB or chest pain with it. After diarrhea she did feel better for short time and then it started over and pain continues across the upper abdomen and down the left side. Onset: Today Onset Date: 06/20/17 Onset Time: 13:00 Location: Reports: Abdomen Quality: Reports: Sharp, Stabbing Severity: Severe Associated Symptoms: Reports: Nausea/Vomiting Abdominal Pain Score (Numeric/FACES): 10 - Related Data Allergies Allergy/AdvReac Type Severity Reaction Status Date / Time No Known Allergies Allergy Verified 06/20/17 18:39 Home Meds: Home Meds Gabapentin 600 mg PO TID 03/02/14 [History] Cyanocobalamin (Vitamin B12) [Vitamin B12] 1,000 mcg IM Q30D 05/01/14 [History] Albuterol Sulfate [Proair Hfa] 2 puff INH Q4HR PRN 08/12/15 [History] Fluticasone Furoate [Arnuity Ellipta] 1 puff INH DAILY 10/19/16 [History] Mirtazapine 15 mg PO BEDTIME 10/19/16 [History] Fluticasone Furoate [Arnuity Ellipta] 1 puff INH DAILY 06/20/17 [History] Past Medical History HEENT History: Reports: Impaired Vision Other HEENT History: broke her glasses recently, hard to read without them Cardiovascular History: Reports: SOB on Exertion Respiratory History: Reports: Bronchitis, Recurrent, COPD, Pneumonia, Recurrent , Pneumothorax, SOB Other Respiratory History: Goal: to increase her activity with less SOB; says she gets SOB when trying to clean her house; 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 Neurological History: Reports: Neuropathy, Peripheral Other Neuro History: B12 deficiency per history, headaches Psychiatric History: Reports: Anxiety, Depression Hematologic History: Reports: Anemia Oncologic (Cancer) History: Reports: Cervix Other Oncologic History: cervical cancer - Past Surgical History Respiratory Surgical History: Reports: Pneumonectomy GI Surgical History: Reports: Appendectomy Female Surgical History: Reports: Hysterectomy Other Musculoskeletal Surgeries/Procedures:: peripheral neuropathy, nerve damage to her legs and arms Social & Family History - Family History Family Medical History: Noncontributory Cardiac: Reports: Hypertension - Tobacco Use Smoking Status *Q: Never Smoker - Caffeine Use Caffeine Use: Reports: Coffee - Recreational Drug Use Recreational Drug Use: No ED ROS GENERAL - Review of Systems Review Of Systems: See Below Constitutional: Reports: Fever, Chills HEENT: Reports: No Symptoms Respiratory: Reports: No Symptoms Cardiovascular: Reports: No Symptoms GI/Abdominal: Reports: Abdominal Pain, Diarrhea, Nausea, Vomiting : Reports: No Symptoms Musculoskeletal: Reports: No Symptoms Skin: Reports: No Symptoms Neurological: Reports: No Symptoms ED EXAM, GI/ABD - Physical Exam Exam: See Below Exam Limited By: No Limitations General Appearance: Alert, WD/WN, Moderate Distress Eyes: Bilateral: Normal Appearance Ears: Normal Canal, Hearing Grossly Normal, Normal TMs Nose: Normal Inspection Throat/Mouth: Normal Inspection, Normal Oropharynx, No Airway Compromise Head: Atraumatic, Normocephalic Neck: Normal Inspection, Supple, Non-Tender, Full Range of Motion Respiratory/Chest: No Respiratory Distress, Lungs Clear, Normal Breath Sounds Cardiovascular: Regular Rate, Rhythm, No Edema, No Murmur GI/Abdominal Exam: Soft, Guarding, Tender (to the upper quadrants and down the left side.), Other (bowel sounds are present but hypoactive throughout.). No: Rigid, Rebound Extremities: Normal Range of Motion, No Pedal Edema, Normal Capillary Refill Neurological: Alert, Oriented Skin Exam: Warm, Dry Course - Vital Signs Last Recorded V/S: Last Vital Signs Temp 98.2 F 06/20/17 20:33 Pulse 99 06/20/17 20:33 Resp 16 06/20/17 20:33 BP 110/75 06/20/17 20:33 Pulse Ox 94 L 06/20/17 20:33 - Orders/Labs/Meds Labs: Laboratory Tests 06/20/17 06/20/17 06/20/17 Range/Units 18:45 18:57 18:57 WBC 10.5 H (5.0-10.0) 10^3/uL RBC 5.11 (4.00-5.50) 10^6/uL Hgb 15.8 (12.0-16.0) g/dL Hct 47.9 H (37.0-47.0) % MCV 93.7 (82.0-94.0) fL MCH 30.9 (27.0-32.0) pg MCHC 33.0 (33.0-38.0) g/dL RDW Coeff of Estefanía 13.6 (11.0-15.0) % Plt Count 345 (150-400) 10^3/uL Neut % (Auto) 72.5 (35-85) % Lymph % (Auto) 16.7 (10-55) % [place] % (Auto) 9.3 (0-16) % Eos % (Auto) 1.1 (0-5) % Baso % (Auto) 0.4 (0-3) % Neut # (Auto) 7.57 H (1.80-7.00) 10^3/uL Lymph # (Auto) 1.75 (1.00-4.80) 10^3/uL [place] # (Auto) 0.97 H (0.00-0.80) 10^3/uL Eos # (Auto) 0.12 (0.00-0.45) 10^3/uL Baso # (Auto) 0.04 10^3/uL Sodium 139 (136-145) mEq/L Potassium 4.1 (3.5-5.0) mEq/L Chloride 101 (98-106) mEq/L Carbon Dioxide 27 (21-32) mmol/L BUN 15 (7-18) mg/dL Creatinine 0.8 (0.6-1.0) mg/dL Est Cr Clr Drug Dosing 69.88 mL/min Estimated GFR (MDRD) > 60 (>=60) mL/min Glucose 121 H (75-99) mg/dL Calcium 9.6 (8.4-10.1) mg/dL Total Bilirubin 0.3 (0.0-1.0) mg/dL AST 19 (15-37) U/L ALT 23 (12-78) U/L Alkaline Phosphatase 103 (46-116) U/L C-Reactive Protein < 0.2 L (0.2-0.8) mg/dL Total Protein 7.9 (6.4-8.2) g/dL Albumin 4.0 (3.4-5.0) g/dL Amylase 69 (25-115) U/L Urine Color Straw (YELLOW) Urine Appearance Slightly cloudy (CLEAR) Urine pH 5.5 (4.5-8.0) Ur Specific [place] >= 1.030 H (1.003-1.020) Urine Protein Negative (NEGATIVE) mg/dL Urine Glucose (UA) Negative (NEGATIVE) mg/dL Urine Ketones Trace H (NEGATIVE) mg/dL Urine Occult Blood Negative (NEGATIVE) Urine Nitrite Negative (NEGATIVE) Urine Bilirubin Negative (NEGATIVE) Urine Urobilinogen 0.2 (0.2-1.0) EU/dL Ur Leukocyte Esterase Negative (NEGATIVE) Urine RBC Not seen (0-5) /HPF Urine WBC 5-10 H (0-5) /HPF Ur Epithelial Cells Moderate H (NOT SEEN) /HPF Calcium Oxalate Crystal Moderate H (NOT SEEN) /HPF Urine Mucus Moderate H (NOT SEEN) /HPF Meds: Medications Discontinued Medications Generic Name Dose Route Start Last Admin Trade Name Freq PRN Reason Stop Dose Admin Sodium Chloride 1,000 mls @ 250 mls/hr 06/20/17 19:30 06/20/17 19:43 Normal Saline IV 250 mls/hr ASDIRECTED JASMEET Administration Ondansetron HCl 4 mg 06/20/17 19:31 06/20/17 19:43 Zofran IVPUSH 06/20/17 19:32 4 mg NOW STA Administration Ondansetron HCl 2 packet 06/20/17 21:28 06/20/17 21:43 Take Home: Ondansetron Odt 4 Mg, 2 Tab Pack PO 06/20/17 21:29 2 packet ONETIME ONE Administration Ondansetron HCl 16 mg 06/20/17 18:38 Zofran Odt PO 06/20/17 18:39 [facility] - Re-Assessments/Exams Free Text/Narrative Re-Assessment/Exam: 06/20/17 20:13 In to discuss that her labs are normal at this time. Has been given zofran and is currently getting IV fluids. Will monitor for the next 1-2 hours for further vomiting or diarrhea. bowel sounds are active and she is less tender to palpation. Departure - Departure Time of Disposition: 21:50 Disposition: Home, Self-Care 01 Condition: Good Clinical Impression: Gastroenteritis - Discharge Information Instructions: Viral Gastroenteritis, Adult, [id number] Referrals: Ad Beck MD [Primary Care Provider] - Forms: ED Department Discharge Additional Instructions: DISCHARGE HOME Zofran 4 mg ODT 1-2 tabs po Q6H as needed for nausea. Follow up as needed. Return to ER if any more concerns. - Problem List & Annotations (1) Gastroenteritis SNOMED Code(s): 43532910 Code(s): K52.9 - NONINFECTIVE GASTROENTERITIS AND COLITIS, UNSPECIFIED Status: Acute Priority: High - Problem List Review Problem List Initiated/Reviewed/Updated: Yes
[2017-06-20 19:13] LABS: CHLORIDE,CL 101 mEq/L (98-106); SODIUM,NA 139 mEq/L (136-145)
[2017-06-20] MEDS: Sodium Chloride 0.9% 1,000 ML IV SCH (19:43)
[2017-06-20] MEDS: Ondansetron 4 MG/2 ML SDV IVPUSH STA (19:43)
[2017-06-20 20:34] VITALS: BP 110/75
[2017-06-20] MEDS: Take Home: Ondansetron 4 MG Tab.DIS, 2 Tab Pack PO ONE (21:43)
== END 2017-06-20 21:50 | disposition home or self-care (01) ==
LOC: CC.ED 18:37
DX: K52.9 Noninfective gastroenteritis and colitis, unspecified (principal); Z79.899 Other long term (current) drug therapy
CPT/HCPCS: 36415; 74019; 80053; 81001; 82150; 85025; 86140; 96365; 96366; 96375; 99284; A9270-GY; J2405; J7030

== ENCOUNTER 2018-09-10 08:35 | Observation (INO) | payer MEDICAID ==
[2018-09-10] MEDS ORDERED: Sodium Chloride 0.9% 1,000 ML IV ONE (08:51)
[2018-09-10] MEDS ORDERED: Ondansetron 4 MG/2 ML SDV IVPUSH SCH (09:00)
[2018-09-10] MEDS ORDERED: fentaNYL 100 MCG/2 ML SDV IVPUSH ONE ×2 (09:09→10:45)
[2018-09-10 09:19] LABS: CHLORIDE,CL 103 mEq/L (98-106); SODIUM,NA 140 mEq/L (136-145)
--- NOTE | 2018-09-10 09:31 | EDM.PDOC ---
ED HPI GENERAL MEDICAL PROBLEM - General Chief Complaint: Abdominal Pain Stated Complaint: right upper abdominal pain Time Seen by Provider: 09/10/18 09:00 Source of Information: Reports: Patient History Limitations: Reports: No Limitations - History of Present Illness INITIAL COMMENTS - FREE TEXT/NARRATIVE: Saranya is a 53 year old female who presents ambulatory to the ED with c/o right sided abdominal pain, nausea, vomiting, and diarrhea. She reports she has had ongoing right sided abdominal pain for the past few weeks. Report that last night around 9 pm, pain worsened and she began vomiting and having diarrhea. She reports since that time she has not been able to keep down any fluids. Has not had fever, but has felt chilled. She reports she has chronic cough. Denies any shortness of breath, dizziness, urinary symptoms. She rates pain 10/10. Onset Date: 09/09/18 Duration: Getting Worse Location: Reports: Abdomen Quality: Reports: Ache, Sharp Severity: Severe Improves with: Reports: None Worsens with: Reports: Eating Associated Symptoms: Reports: Loss of Appetite, Malaise, Nausea/Vomiting, Weakness. Denies: Confusion, Chest Pain, Cough, cough w sputum, Diaphoresis, Fever/Chills, Headaches, Rash, Seizure, Shortness of Breath, Syncope Right Upper Abdomen Pain Score (Numeric/FACES): 10 - Related Data Allergies Allergy/AdvReac Type Severity Reaction Status Date / Time No Known Allergies Allergy Verified 09/10/18 08:44 Home Meds: Home Meds Gabapentin 600 mg PO TID 03/02/14 [History] Cyanocobalamin (Vitamin B12) [Vitamin B12] 1,000 mcg IM Q30D 05/01/14 [History] Albuterol Sulfate [Proair Hfa] 2 puff INH Q4HR PRN 08/12/15 [History] Mirtazapine 15 mg PO BEDTIME 10/19/16 [History] Alendronate Sodium 70 mg PO MO 09/10/18 [History] Pantoprazole Sodium [Protonix] 40 mg PO DAILY 09/10/18 [History] Sucralfate 1 gm PO QID 09/10/18 [History] Umeclidinium Brm/Vilanterol Tr [Anoro Ellipta 62.5-25 MCG] 1 puff IH DAILY 09/10 [History] rOPINIRole [Requip] 1 mg PO BEDTIME 09/10/18 [History] Past Medical History HEENT History: Reports: Impaired Vision Other HEENT History: broke her glasses recently, hard to read without them Cardiovascular History: Reports: SOB on Exertion Respiratory History: Reports: Bronchitis, Recurrent, COPD, Pneumonia, Recurrent , Pneumothorax, SOB Other Respiratory History: Goal: to increase her activity with less SOB; says she gets SOB when trying to clean her house; 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 Neurological History: Reports: Neuropathy, Peripheral Other Neuro History: B12 deficiency per history, headaches Psychiatric History: Reports: Anxiety, Depression Hematologic History: Reports: Anemia Oncologic (Cancer) History: Reports: Cervix Other Oncologic History: cervical cancer - Past Surgical History Respiratory Surgical History: Reports: Pneumonectomy GI Surgical History: Reports: Appendectomy Female Surgical History: Reports: Hysterectomy Other Musculoskeletal Surgeries/Procedures:: peripheral neuropathy, nerve damage to her legs and arms Social & Family History - Family History Family Medical History: Noncontributory Cardiac: Reports: Hypertension - Tobacco Use Smoking Status *Q: Former Smoker Used Tobacco, but Quit: Yes Month/Year Tobacco Last Used: 2 YEARS AGO - Caffeine Use Caffeine Use: Reports: Coffee, Soda - Recreational Drug Use Recreational Drug Use: No ED ROS GENERAL - Review of Systems Review Of Systems: ROS reveals no pertinent complaints other than HPI. ED EXAM, GI/ABD - Physical Exam Exam: See Below Exam Limited By: No Limitations General Appearance: Alert, WD/WN, No Apparent Distress Throat/Mouth: Normal Inspection, Normal Lips, Normal Teeth, Normal Gums, Normal Oropharynx, Normal Voice, No Airway Compromise Head: Atraumatic, Normocephalic Neck: Normal Inspection, Supple, Non-Tender, Full Range of Motion Respiratory/Chest: No Respiratory Distress, Lungs Clear, Normal Breath Sounds, No Accessory Muscle Use, Chest Non-Tender Cardiovascular: Normal Peripheral Pulses, Regular Rate, Rhythm, No Edema, No Gallop, No JVD, No Murmur, No Rub GI/Abdominal Exam: Normal Bowel Sounds, Soft, No Organomegaly, No Distention, No Mass, Tender (generalized) Back Exam: Normal Inspection, Full Range of Motion. No: CVA Tenderness (L), CVA Tenderness (R) Extremities: Normal Inspection, Normal Range of Motion, Non-Tender, Normal Capillary Refill, No Pedal Edema Neurological: Alert, Oriented, CN II-XII Intact, Normal Cognition, Normal Gait, Normal Reflexes, No Motor/Sensory Deficits Psychiatric: Flat Affect Skin Exam: Warm, Dry, Intact, Normal Color, No Rash Course - Vital Signs Last Recorded V/S: Last Vital Signs Temp 98.3 F 09/10/18 16:00 Pulse 69 09/10/18 16:00 Resp 16 09/10/18 16:00 BP 89/65 L 09/10/18 16:00 Pulse Ox 92 L 09/10/18 16:00 - Orders/Labs/Meds Orders: Active Orders 24 hr Category Date Time Status Abdomen Pelvis w Cont [CT] Stat Exams 09/10/18 09:33 Taken Medication Orders Acetaminophen (Tylenol) 650 mg PO Q4H PRN PRN Reason: Pain (Mild 1-3)/fever Albuterol (Ventolin Hfa) 0 gm INH Q4H PRN PRN Reason: Wheezing Gabapentin (Neurontin) 600 mg PO TID [facility] Last Admin: 09/10/18 20:28 Dose: 600 mg Metronidazole 500 mg/ Premix 100 mls @ 100 mls/hr IV Q8H [facility] Last Admin: 09/10/18 21:24 Dose: 100 mls/hr Infusion: 09/10/18 14:52 Dose: 100 mls/hr Admin: 09/10/18 13:52 Dose: 100 mls/hr Sodium Chloride (Normal Saline) 1,000 mls @ 125 mls/hr IV ASDIRECTED [facility] Last Admin: 09/10/18 18:20 Dose: 125 mls/hr Mirtazapine (Remeron) 15 mg PO BEDTIME [facility] Last Admin: 09/10/18 20:28 Dose: 15 mg Morphine Sulfate (Morphine) 1 - 2 mg IVPUSH Q4H PRN PRN Reason: Pain Last Admin: 09/10/18 20:38 Dose: 2 mg Admin: 09/10/18 12:40 Dose: 2 mg Ptom Umeclidinium Brm/Vilanterol Tr [Anoro Ellipta 62.5-25 Mcg 1 puff IH DAILY [facility] Ondansetron HCl (Zofran) 4 mg IV Q6H PRN PRN Reason: Nausea/Vomiting Last Admin: 09/10/18 20:34 Dose: 4 mg Admin: 09/10/18 12:45 Dose: 4 mg Pantoprazole Sodium (Protonix) 40 mg PO ACBREAKFAST [facility] Ropinirole HCl (Requip) 1 mg PO BEDTIME [facility] Last Admin: 09/10/18 20:28 Dose: 1 mg Labs: Laboratory Tests 09/10/18 09/10/18 Range/Units 09:02 09:02 WBC 7.3 (5.0-10.0) 10^3/uL RBC 5.46 (4.00-5.50) 10^6/uL Hgb 17.1 H (12.0-16.0) g/dL Hct 50.5 H (37.0-47.0) % MCV 92.5 (82.0-94.0) fL MCH 31.3 (27.0-32.0) pg MCHC 33.9 (33.0-38.0) g/dL RDW Coeff of Estefanía 12.3 (11.0-15.0) % Plt Count 255 (150-400) 10^3/uL Neut % (Auto) 79.9 (35-85) % Lymph % (Auto) 10.4 (10-55) % [place] % (Auto) 9.3 (0-16) % Eos % (Auto) 0.1 (0-5) % Baso % (Auto) 0.3 (0-3) % Neut # (Auto) 5.86 (1.80-7.00) 10^3/uL Lymph # (Auto) 0.76 L (1.00-4.80) 10^3/uL [place] # (Auto) 0.68 (0.00-0.80) 10^3/uL Eos # (Auto) 0.01 (0.00-0.45) 10^3/uL Baso # (Auto) 0.02 10^3/uL Sodium 140 (136-145) mEq/L Potassium 4.2 (3.5-5.0) mEq/L Chloride 103 (98-106) mEq/L Carbon Dioxide 29 (21-32) mmol/L BUN 14 (7-18) mg/dL Creatinine 0.7 (0.6-1.0) mg/dL Est Cr Clr Drug Dosing 78.03 mL/min Estimated GFR (MDRD) > 60 (>=60) mL/min Glucose 132 H D (75-99) mg/dL Calcium 9.4 (8.4-10.1) mg/dL Total Bilirubin 0.4 (0.0-1.0) mg/dL AST 15 (15-37) U/L ALT 20 (12-78) U/L Alkaline Phosphatase 85 (46-116) U/L C-Reactive Protein 0.3 (0.2-0.8) mg/dL Total Protein 7.6 (6.4-8.2) g/dL Albumin 3.9 (3.4-5.0) g/dL Amylase 49 (25-115) U/L Lipase 104 (73-393) U/L Meds: Medications Generic Name Dose Route Start Last Admin Trade Name Freq PRN Reason Stop Dose Admin Acetaminophen 650 mg 09/10/18 12:13 Tylenol PO Q4H PRN Pain (Mild 1-3)/fever Albuterol 0 gm 09/10/18 15:02 Ventolin Hfa INH Q4H PRN Wheezing Gabapentin 600 mg 09/10/18 20:00 09/10/18 20:28 Neurontin PO 600 mg TID [facility] Administration Metronidazole 500 mg/ Premix 100 mls @ 100 mls/hr 09/10/18 13:30 09/10/18 21: 24 IV 100 mls/hr Q8H [facility] Administration Sodium Chloride 1,000 mls @ 125 mls/hr 09/10/18 12:13 09/10/18 18:20 Normal Saline IV 125 mls/hr ASDIRECTED [facility] Administration Mirtazapine 15 mg 09/10/18 20:00 09/10/18 20:28 Remeron PO 15 mg BEDTIME [facility] Administration Morphine Sulfate 1 - 2 mg 09/10/18 12:13 09/10/18 20:38 Morphine IVPUSH 2 mg Q4H PRN Administration Pain Ptom 1 puff 09/11/18 08:00 Umeclidinium Brm/ IH Vilanterol Tr [Anoro DAILY [facility] Ellipta 62.5-25 Mcg Ondansetron HCl 4 mg 09/10/18 12:13 09/10/18 20:34 Zofran IV 4 mg Q6H PRN Administration Nausea/Vomiting Pantoprazole Sodium 40 mg 09/11/18 07:00 Protonix PO ACBREAKFAST [facility] Ropinirole HCl 1 mg 09/10/18 20:00 09/10/18 20:28 Requip PO 1 mg BEDTIME [facility] Administration Discontinued Medications Generic Name Dose Route Start Last Admin Trade Name Freq PRN Reason Stop Dose Admin Fentanyl 25 mcg 09/10/18 09:09 09/10/18 09:13 Sublimaze IVPUSH 09/10/18 09:10 25 mcg ONETIME ONE Administration Fentanyl 25 mcg 09/10/18 10:45 09/10/18 10:50 Sublimaze IVPUSH 09/10/18 10:46 25 mcg ONETIME ONE Administration Sodium Chloride 1,000 mls @ 999 mls/hr 09/10/18 08:51 09/10/18 09:03 Normal Saline IV 09/10/18 09:51 999 mls/hr .BOLUS ONE Administration Sodium Chloride 1,000 mls @ 150 mls/hr 09/10/18 10:00 09/10/18 10:03 Normal Saline IV 150 mls/hr ASDIRECTED [facility] Administration Iopamidol 100 ml 09/10/18 10:12 09/10/18 10:19 Isovue-370 (76%) IVPUSH 09/10/18 10:13 75 ml ONETIME ONE Administration Ondansetron HCl 4 mg 09/10/18 09:00 09/10/18 09:04 Zofran IVPUSH 4 mg STAT [facility] Administration Departure - Departure Time of Disposition: 11:41 Disposition: Refer to Observation Condition: Fair Clinical Impression: Enteritis Abdominal pain Qualifiers: Abdominal location: generalized Qualified Code(s): R10.84 - Generalized abdominal pain - Discharge Information *PRESCRIPTION DRUG MONITORING PROGRAM REVIEWED*: Not Applicable *COPY OF PRESCRIPTION DRUG MONITORING REPORT IN PATIENT KAREN: Not Applicable - Problem List & Annotations (1) Enteritis SNOMED Code(s): 75371320 Code(s): K52.9 - NONINFECTIVE GASTROENTERITIS AND COLITIS, UNSPECIFIED Status: Acute Current Visit: No - Problem List Review Problem List Initiated/Reviewed/Updated: Yes - My Orders Last 24 Hours: My Active Orders 09/10/18 09:33 Abdomen Pelvis w Cont [CT] Stat - Assessment/Plan Admission H&P: Please use this note as an admission H&P Last 24 Hours: My Active Orders 09/10/18 09:33 Abdomen Pelvis w Cont [CT] Stat Assessment:: Enteritis Plan: Labs all WNL. CT abdomen/pelvis shows enteritis. Patient unable to keep down oral liquids. Will admit to observation. Continue IVF. Collect stool samples. Will start Flagyl. Zofran as needed for nausea. Anticipate discharge 1-2 days pending patient's symptoms.
[2018-09-10] MEDS ORDERED: Sodium Chloride 0.9% 1,000 ML IV SCH (10:00)
[2018-09-10] MEDS ORDERED: Iopamidol 755 Mg/ML 100 ML Bottle IVPUSH ONE (10:12)
[2018-09-10] MEDS: Morphine 2 MG/ML Syringe IVPUSH PRN ×2 (12:40→20:38)
[2018-09-10] MEDS: Ondansetron 4 MG/2 ML SDV IV PRN ×2 (12:45→20:34)
[2018-09-10] MEDS: metroNIDAZOLE/Normal Saline 500 MG in Premix Bag 1 BAG IV SCH ×2 (13:52→21:24)
[2018-09-10] MEDS ORDERED: Albuterol 8 GM Inhaler INH PRN (15:02)
[2018-09-10] MEDS: Sodium Chloride 0.9% 1,000 ML IV SCH (18:20)
[2018-09-10] MEDS: **PTOM** Mirtazapine 15 MG Tab PO SCH (20:28)
[2018-09-10] MEDS: **PTOM** Gabapentin 300 MG Cap PO SCH (20:28)
[2018-09-10] MEDS: ROPINIROLE 1 MG PO SCH (20:28)
[2018-09-11] MEDS: Sodium Chloride 0.9% 1,000 ML IV SCH ×3 (02:55→20:51)
[2018-09-11] MEDS: metroNIDAZOLE/Normal Saline 500 MG in Premix Bag 1 BAG IV SCH ×3 (04:51→20:57)
[2018-09-11] MEDS: **PTOM** Pantoprazole 40 MG Tab.CR PO SCH (06:21)
[2018-09-11] MEDS: **PTOM** Gabapentin 300 MG Cap PO SCH ×3 (07:22→20:00)
[2018-09-11] MEDS: VILANTEROL TR IH SCH (07:22)
[2018-09-11] MEDS: UMECLIDINIUM BRM IH SCH (07:22)
[2018-09-11] MEDS: Acetaminophen 325 MG Tab PO PRN ×3 (07:25→20:00)
[2018-09-11 07:43] LABS: CHLORIDE,CL 110 mEq/L (98-106); SODIUM,NA 142 mEq/L (136-145)
--- NOTE | 2018-09-11 19:44 | PCM.PN ---
- General Info Date of Service: 09/11/18 Admission Dx/Problem (Free Text): Enteritis Functional Status: Reports: Pain Controlled, Tolerating Diet (tolerating clear liquids), Ambulating, Urinating - Review of Systems General: Reports: Malaise. Denies: Fever, Weakness, Fatigue HEENT: Reports: No Symptoms Pulmonary: Denies: Shortness of Breath, Cough Cardiovascular: Denies: Chest Pain, Edema, Lightheadedness Gastrointestinal: Reports: Abdominal Pain, Nausea. Denies: Vomiting Genitourinary: Denies: Dysuria, Frequency, Burning Musculoskeletal: Reports: No Symptoms Skin: Reports: No Symptoms Neurological: Reports: No Symptoms - Patient Data Vitals - Most Recent: Last Vital Signs Temp 97.9 F 09/11/18 16:00 Pulse 68 09/11/18 16:00 Resp 18 09/11/18 16:00 BP 111/71 09/11/18 16:00 Pulse Ox 99 09/11/18 16:00 Weight - Most Recent: 118 lb 6.212 oz I&O - Last 24 Hours: Intake & Output 09/11/18 09/11/18 09/11/18 06:59 14:59 22:59 Intake Total 1100 1000 Balance 1100 1000 Lab Results Last 24 Hours: Laboratory Results - last 24 hr 09/11/18 09/11/18 Range/Units 07:00 07:00 WBC 4.3 L (5.0-10.0) 10^3/uL RBC 4.43 (4.00-5.50) 10^6/uL Hgb 14.0 (12.0-16.0) g/dL Hct 42.7 (37.0-47.0) % MCV 96.4 H (82.0-94.0) fL MCH 31.6 (27.0-32.0) pg MCHC 32.8 L (33.0-38.0) g/dL RDW Coeff of Estefanía 12.4 (11.0-15.0) % Plt Count 143 L (150-400) 10^3/uL Neut % (Auto) 53.6 (35-85) % Lymph % (Auto) 33.3 (10-55) % [place] % (Auto) 10.5 (0-16) % Eos % (Auto) 2.1 (0-5) % Baso % (Auto) 0.5 (0-3) % Neut # (Auto) 2.30 (1.80-7.00) 10^3/uL Lymph # (Auto) 1.43 (1.00-4.80) 10^3/uL [place] # (Auto) 0.45 (0.00-0.80) 10^3/uL Eos # (Auto) 0.09 (0.00-0.45) 10^3/uL Baso # (Auto) 0.02 10^3/uL Sodium 142 (136-145) mEq/L Potassium 3.8 (3.5-5.0) mEq/L Chloride 110 H (98-106) mEq/L Carbon Dioxide 26 (21-32) mmol/L BUN 10 (7-18) mg/dL Creatinine 0.6 (0.6-1.0) mg/dL Est Cr Clr Drug Dosing 89.81 mL/min Estimated GFR (MDRD) > 60 (>=60) mL/min Glucose 94 D (75-99) mg/dL Calcium 7.6 L (8.4-10.1) mg/dL C-Reactive Protein < 0.2 L (0.2-0.8) mg/dL [place] Results Last 24 Hours: Microbiology 09/11/18 08:45 C. difficile DNA Amplification - Final Stool / Feces NEGATIVE CDIFF BY DNA REFERENCE RANGE: NEGATIVE Med Orders - Current: Current Medications Acetaminophen (Tylenol) 650 mg PO Q4H PRN PRN Reason: Pain (Mild 1-3)/fever Last Admin: 09/11/18 14:07 Dose: 650 mg Albuterol (Ventolin Hfa) 0 gm INH Q4H PRN PRN Reason: Wheezing Gabapentin (Neurontin) 600 mg PO TID [facility] Last Admin: 09/11/18 14:03 Dose: 600 mg Metronidazole 500 mg/ Premix 100 mls @ 100 mls/hr IV Q8H [facility] Last Admin: 09/11/18 14:03 Dose: 100 mls/hr Sodium Chloride (Normal Saline) 1,000 mls @ 125 mls/hr IV ASDIRECTED [facility] Last Admin: 09/11/18 11:56 Dose: 125 mls/hr Mirtazapine (Remeron) 15 mg PO BEDTIME [facility] Last Admin: 09/10/18 20:28 Dose: 15 mg Morphine Sulfate (Morphine) 1 - 2 mg IVPUSH Q4H PRN PRN Reason: Pain Last Admin: 09/10/18 20:38 Dose: 2 mg Ptom Umeclidinium Brm/Vilanterol Tr [Anoro Ellipta 62.5-25 Mcg 1 puff IH DAILY [facility] Last Admin: 09/11/18 07:22 Dose: 1 puff Ondansetron HCl (Zofran) 4 mg IV Q6H PRN PRN Reason: Nausea/Vomiting Last Admin: 09/10/18 20:34 Dose: 4 mg Pantoprazole Sodium (Protonix) 40 mg PO ACBREAKFAST [facility] Last Admin: 09/11/18 06:21 Dose: 40 mg Ropinirole HCl (Requip) 1 mg PO BEDTIME [facility] Last Admin: 09/10/18 20:28 Dose: 1 mg Discontinued Medications Fentanyl (Sublimaze) 25 mcg IVPUSH ONETIME ONE Stop: 09/10/18 09:10 Last Admin: 09/10/18 09:13 Dose: 25 mcg Fentanyl (Sublimaze) 25 mcg IVPUSH ONETIME ONE Stop: 09/10/18 10:46 Last Admin: 09/10/18 10:50 Dose: 25 mcg Sodium Chloride (Normal Saline) 1,000 mls @ 999 mls/hr IV .BOLUS ONE Stop: 09/10/18 09:51 Last Admin: 09/10/18 09:03 Dose: 999 mls/hr Sodium Chloride (Normal Saline) 1,000 mls @ 150 mls/hr IV ASDIRECTED [facility] Last Admin: 09/10/18 10:03 Dose: 150 mls/hr Iopamidol (Isovue-370 (76%)) 100 ml IVPUSH ONETIME ONE Stop: 09/10/18 10:13 Last Admin: 09/10/18 10:19 Dose: 75 ml Ondansetron HCl (Zofran) 4 mg IVPUSH STAT [facility] Last Admin: 09/10/18 09:04 Dose: 4 mg - Exam General: Alert, Oriented HEENT: Mucous Membr. Moist/[place] Neck: Supple Lungs: Decreased Breath Sounds Cardiovascular: Regular Rate, Regular Rhythm GI/Abdominal Exam: Normal Bowel Sounds, Soft, Tender (RLQ) Extremities: Normal Inspection, No Pedal Edema - Problem List & Annotations (1) Abdominal pain SNOMED Code(s): 46490289 Code(s): R10.9 - UNSPECIFIED ABDOMINAL PAIN Status: Acute Priority: High Current Visit: Yes Qualifiers: Abdominal location: generalized Qualified Code(s): R10.84 - Generalized abdominal pain (2) Enteritis SNOMED Code(s): 01237401 Code(s): K52.9 - NONINFECTIVE GASTROENTERITIS AND COLITIS, UNSPECIFIED Status: Acute Priority: High Current Visit: Yes - Problem List Review Problem List Initiated/Reviewed/Updated: Yes - My Orders Last 24 Hours: My Active Orders 09/11/18 Dinner Soft Diet [DIET] - Assessment Assessment:: Enteritis - Plan Plan:: Patient admits to feeling somewhat better today. States still has tenderness to RLQ. Was nauseated this am, had zofran, now improved. She has yet to have any loose stools since admission. No fevers. Has tolerated minimal clear liquids up to this point. WBC 4.3 today. CRP negative. UA was negative. CT scan did show enteritis. Does have headache today. Advised patient to ambulate, push fluids. Try to advance diet today. Reevaluate labs in am. Possible discharge home tomorrow.
[2018-09-11] MEDS: ROPINIROLE 1 MG PO SCH (19:58)
[2018-09-11] MEDS: **PTOM** Mirtazapine 15 MG Tab PO SCH (19:58)
[2018-09-12] MEDS: Acetaminophen 325 MG Tab PO PRN (00:18)
[2018-09-12] MEDS: metroNIDAZOLE/Normal Saline 500 MG in Premix Bag 1 BAG IV SCH (04:52)
[2018-09-12] MEDS: **PTOM** Pantoprazole 40 MG Tab.CR PO SCH (06:35)
[2018-09-12] MEDS: Sodium Chloride 0.9% 1,000 ML IV SCH (06:35)
[2018-09-12] MEDS: **PTOM** Gabapentin 300 MG Cap PO SCH (08:22)
[2018-09-12] MEDS: VILANTEROL TR IH SCH (08:23)
[2018-09-12] MEDS: UMECLIDINIUM BRM IH SCH (08:23)
[2018-09-12 08:43] VITALS: BP 130/79; PULSE 67
[2018-09-12 09:31] LABS: SODIUM,NA 144 mEq/L (136-145)
[2018-09-12 09:41] LABS: CHLORIDE,CL 109 mEq/L (98-106)
--- NOTE | 2018-09-12 22:04 | PCM.DCSUM1 ---
Discharge Summary - Hospital Course Free Text/Narrative:: Patient presented to ER with complaints of RLQ pain. States had started noting discomfort earlier in the day but worsened and then developed vomiting and diarrhea. Unable to keep fluids down. Multiple loose stools. Labs done, all relatively normal. CT scan of abdomen done which showed enteritis. Due to nausea and pain, admitted for IV fluids, stool collection. Started on IV Flagyl. Repeat labs in am. Diagnosis: Stroke: No Modified [place] Scale: No Symptoms at All Modified [place] Scale Score: 0 - Discharge Data Discharge Date: 09/12/18 Discharge Disposition: Home, Self-Care 01 Condition: Good - Discharge Diagnosis/Problem(s) (1) Abdominal pain SNOMED Code(s): 41584516 ICD Code: R10.9 - UNSPECIFIED ABDOMINAL PAIN Status: Acute Priority: High Qualifiers: Abdominal location: generalized Qualified Code(s): R10.84 - Generalized abdominal pain (2) Enteritis SNOMED Code(s): 49419890 ICD Code: K52.9 - NONINFECTIVE GASTROENTERITIS AND COLITIS, UNSPECIFIED Status: Acute Priority: High - Patient Summary/Data Complications: none Hospital Course: Patient is feeling better. Minimal discomfort. Diarrhea has stopped. No fevers. Is tolerating regular soft diet. Ambulating in halls. Labs have shown a lower WBC at 3.5, likely viral infection. CRP negative. BUN/ creatinine normal. Potassium has decreased to 3.1. Will discharge home on oral Flagyl. Soft diet. Recheck next week. - Patient Instructions Diet: Usual Diet as Tolerated Activity: As Tolerated - Discharge Plan *PRESCRIPTION DRUG MONITORING PROGRAM REVIEWED*: Not Applicable *COPY OF PRESCRIPTION DRUG MONITORING REPORT IN PATIENT KAREN: Not Applicable Prescriptions/Med Rec: metroNIDAZOLE [Flagyl] 500 mg PO Q8H #15 tab Home Medications: Home Meds Gabapentin 600 mg PO TID 03/02/14 [History] Cyanocobalamin (Vitamin B12) [Vitamin B12] 1,000 mcg IM Q30D 05/01/14 [History] Albuterol Sulfate [Proair Hfa] 2 puff INH Q4HR PRN 08/12/15 [History] Mirtazapine 15 mg PO BEDTIME 10/19/16 [History] Alendronate Sodium 70 mg PO MO 09/10/18 [History] Pantoprazole Sodium [Protonix] 40 mg PO DAILY 09/10/18 [History] Sucralfate 1 gm PO QID 09/10/18 [History] Umeclidinium Brm/Vilanterol Tr [Anoro Ellipta 62.5-25 MCG] 1 puff IH DAILY 09/10 [History] rOPINIRole [Requip] 1 mg PO BEDTIME 09/10/18 [History] metroNIDAZOLE [Flagyl] 500 mg PO Q8H #15 tab 09/12/18 [Rx] Patient Handouts: Viral Gastroenteritis, Adult Forms: ED Department Discharge Referrals: Mavis Shine PA [Primary Care Provider] - (Follow up in 7 days with Ana Maria) - Discharge Summary/Plan Comment DC Time >30 min.: No - General Info Date of Service: 09/12/18 Admission Dx/Problem (Free Text: Enteritis Functional Status: Reports: Pain Controlled, Tolerating Diet, Ambulating - Review of Systems General: Reports: Malaise. Denies: Fever, Weakness, Fatigue HEENT: Reports: No Symptoms Pulmonary: Denies: Shortness of Breath, Cough Cardiovascular: Denies: Chest Pain, Edema, Lightheadedness Gastrointestinal: Reports: Abdominal Pain (much improved, rubber press tender in right lower quadrant) Genitourinary: Reports: No Symptoms Musculoskeletal: Reports: No Symptoms Skin: Reports: No Symptoms Neurological: Reports: No Symptoms - Patient Data Vitals - Most Recent: Last Vital Signs Temp 98.3 F 09/12/18 08:00 Pulse 67 09/12/18 08:00 Resp 18 09/12/18 08:00 BP 130/79 09/12/18 08:00 Pulse Ox 94 L 09/12/18 08:00 Weight - Most Recent: 118 lb 6.212 oz I&O - Last 24 hours: Intake & Output 09/12/18 09/12/18 09/12/18 06:59 14:59 22:59 Intake Total 1000 Balance 1000 Lab Results - Last 24 hrs: Laboratory Results - last 24 hr 09/12/18 09/12/18 Range/Units 08:55 08:55 WBC 3.5 L (5.0-10.0) 10^3/uL RBC 4.23 (4.00-5.50) 10^6/uL Hgb 13.3 (12.0-16.0) g/dL Hct 39.5 (37.0-47.0) % MCV 93.4 (82.0-94.0) fL MCH 31.4 (27.0-32.0) pg MCHC 33.7 (33.0-38.0) g/dL RDW Coeff of Estefanía 12.1 (11.0-15.0) % Plt Count 169 (150-400) 10^3/uL Neut % (Auto) 52.0 (35-85) % Lymph % (Auto) 31.5 (10-55) % [place] % (Auto) 12.1 (0-16) % Eos % (Auto) 3.5 (0-5) % Baso % (Auto) 0.9 (0-3) % Neut # (Auto) 1.80 (1.80-7.00) 10^3/uL Lymph # (Auto) 1.09 (1.00-4.80) 10^3/uL [place] # (Auto) 0.42 (0.00-0.80) 10^3/uL Eos # (Auto) 0.12 (0.00-0.45) 10^3/uL Baso # (Auto) 0.03 10^3/uL Sodium 144 (136-145) mEq/L Potassium 3.1 L (3.5-5.0) mEq/L Chloride 109 H (98-106) mEq/L Carbon Dioxide 27 (21-32) mmol/L BUN 2 L D (7-18) mg/dL Creatinine 0.6 (0.6-1.0) mg/dL Est Cr Clr Drug Dosing 89.81 mL/min Estimated GFR (MDRD) > 60 (>=60) mL/min Glucose 112 H (75-99) mg/dL Calcium 7.9 L (8.4-10.1) mg/dL C-Reactive Protein < 0.2 L (0.2-0.8) mg/dL Med Orders - Current: Current Medications Discontinued Medications Acetaminophen (Tylenol) 650 mg PO Q4H PRN PRN Reason: Pain (Mild 1-3)/fever Last Admin: 09/12/18 00:18 Dose: 650 mg Albuterol (Ventolin Hfa) 0 gm INH Q4H PRN PRN Reason: Wheezing Fentanyl (Sublimaze) 25 mcg IVPUSH ONETIME ONE Stop: 09/10/18 09:10 Last Admin: 09/10/18 09:13 Dose: 25 mcg Fentanyl (Sublimaze) 25 mcg IVPUSH ONETIME ONE Stop: 09/10/18 10:46 Last Admin: 09/10/18 10:50 Dose: 25 mcg Gabapentin (Neurontin) 600 mg PO TID [facility] Last Admin: 09/12/18 08:22 Dose: 600 mg Sodium Chloride (Normal Saline) 1,000 mls @ 999 mls/hr IV .BOLUS ONE Stop: 09/10/18 09:51 Last Admin: 09/10/18 09:03 Dose: 999 mls/hr Sodium Chloride (Normal Saline) 1,000 mls @ 150 mls/hr IV ASDIRECTED [facility] Last Admin: 09/10/18 10:03 Dose: 150 mls/hr Metronidazole 500 mg/ Premix 100 mls @ 100 mls/hr IV Q8H [facility] Last Admin: 09/12/18 04:52 Dose: 100 mls/hr Sodium Chloride (Normal Saline) 1,000 mls @ 125 mls/hr IV ASDIRECTED [facility] Last Admin: 09/12/18 06:35 Dose: 125 mls/hr Iopamidol (Isovue-370 (76%)) 100 ml IVPUSH ONETIME ONE Stop: 09/10/18 10:13 Last Admin: 09/10/18 10:19 Dose: 75 ml Mirtazapine (Remeron) 15 mg PO BEDTIME [facility] Last Admin: 09/11/18 19:58 Dose: 15 mg Morphine Sulfate (Morphine) 1 - 2 mg IVPUSH Q4H PRN PRN Reason: Pain Last Admin: 09/10/18 20:38 Dose: 2 mg Ptom Umeclidinium Brm/Vilanterol Tr [Anoro Ellipta 62.5-25 Mcg 1 puff IH DAILY [facility] Last Admin: 09/12/18 08:23 Dose: 1 puff Ondansetron HCl (Zofran) 4 mg IVPUSH STAT [facility] Last Admin: 09/10/18 09:04 Dose: 4 mg Ondansetron HCl (Zofran) 4 mg IV Q6H PRN PRN Reason: Nausea/Vomiting Last Admin: 09/10/18 20:34 Dose: 4 mg Pantoprazole Sodium (Protonix) 40 mg PO ACBREAKFAST [facility] Last Admin: 09/12/18 06:35 Dose: 40 mg Ropinirole HCl (Requip) 1 mg PO BEDTIME [facility] Last Admin: 09/11/18 19:58 Dose: 1 mg - Exam General: Reports: Alert, Oriented HEENT: Reports: Mucous Membr. Moist/[place] Neck: Reports: Supple Lungs: Reports: Clear to Auscultation, Decreased Breath Sounds Cardiovascular: Reports: Regular Rate, Regular Rhythm GI/Abdominal Exam: Normal Bowel Sounds, Soft, Tender (lower quads bilaterally) Extremities: Normal Inspection, No Pedal Edema Skin: Reports: Warm, Dry Neurological: Reports: No New Focal Deficit
== END 2018-09-12 10:45 | disposition home or self-care (01) ==
LOC: CC.ED 08:35 → CC.MS 11:44 → OBSVTOIN 11:44 → INTOOBSV 11:44 → OBSVTOIN 11:59 → INTOOBSV 11:59 → CC.MS 11:59 → UNDOADMOB 11:59
PROVIDERS: ADMIT Nurse Practitioner Family; ATTEND Family Medicine
DX: K52.9 Noninfective gastroenteritis and colitis, unspecified (principal); R10.31 Right lower quadrant pain; J44.9 Chronic obstructive pulmonary disease, unspecified; E53.8 Deficiency of other specified B group vitamins; F32.9 Major depressive disorder, single episode, unspecified; Z79.899 Other long term (current) drug therapy; Z90.49 Acquired absence of other specified parts of digestive tract; Z87.891 Personal history of nicotine dependence
CPT/HCPCS: 36415; 74177; 80048; 80053; 81003; 82150; 83690; 85025; 86140; 87045; 87046; 87493; 94640; 96361; 96365; 96366; 96375; 96376; 99285; A9270; G0378; J2270; J2405; J3010; J3490; J7030; Q9967; 87077; 96374

== ENCOUNTER 2019-04-04 22:33 | Observation (INO) | payer MEDICAID ==
--- NOTE | 2019-04-04 23:08 | EDM.PDOC ---
ED HPI GENERAL MEDICAL PROBLEM - General Chief Complaint: Respiratory Problem Stated Complaint: SOB,abdominal pain, diahrrea Time Seen by Provider: 04/04/19 22:50 Source of Information: Reports: Patient History Limitations: Reports: No Limitations - History of Present Illness INITIAL COMMENTS - FREE TEXT/NARRATIVE: started with vomiting and diarrhea earlier today. Has "really bad" left lower quadrant abdominal pain. No fever or chills. Has not ate anything this afternoon. No blood in stool or emesis is reported. Pain is getting worse. No cough with it. Is cold but doesn't feel like has had a fever. Had similar symptoms back in september and was found to have a viral enteritis. Onset: Today Location: Reports: Abdomen Quality: Reports: Sharp, Stabbing Associated Symptoms: Reports: Nausea/Vomiting Left Lower Abdomen Pain Score (Numeric/FACES): 10 - Related Data Allergies Allergy/AdvReac Type Severity Reaction Status Date / Time No Known Allergies Allergy Verified 04/04/19 22:37 Home Meds: Home Meds Gabapentin 600 mg PO TID 03/02/14 [History] Cyanocobalamin (Vitamin B12) [Vitamin B12] 1,000 mcg IM Q30D 05/01/14 [History] Albuterol Sulfate [Proair Hfa] 2 puff INH Q4HR PRN 08/12/15 [History] Mirtazapine 15 mg PO BEDTIME 10/19/16 [History] Alendronate Sodium 70 mg PO MO 09/10/18 [History] Pantoprazole Sodium [Protonix] 40 mg PO DAILY 09/10/18 [History] Sucralfate 1 gm PO QID 09/10/18 [History] Umeclidinium Brm/Vilanterol Tr [Anoro Ellipta 62.5-25 MCG] 1 puff IH DAILY 09/10 [History] rOPINIRole [Requip] 1 mg PO BEDTIME 09/10/18 [History] Past Medical History HEENT History: Reports: Impaired Vision Other HEENT History: broke her glasses recently, hard to read without them Cardiovascular History: Reports: SOB on Exertion Respiratory History: Reports: Bronchitis, Recurrent, COPD, Pneumonia, Recurrent , Pneumothorax, SOB Other Respiratory History: Goal: to increase her activity with less SOB; says she gets SOB when trying to clean her house; 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 Rice in July Gastrointestinal History: Reports: GERD Other Gastrointestinal History: says her appetite is good Genitourinary History: Reports: None NUT THREADER History: Reports: , Other (See Below) Other NUT THREADER History: Adenocarcinoma of cervix; says some of her SOB and weakness has been since her cancer Musculoskeletal History: Reports: Other (See Below) Other Musculoskeletal History: leg nerve pain. Neurological History: Reports: Neuropathy, Peripheral Other Neuro History: B12 deficiency per history, headaches Psychiatric History: Reports: Anxiety, Depression Hematologic History: Reports: Anemia Oncologic (Cancer) History: Reports: Cervix Other Oncologic History: cervical cancer - Past Surgical History Cardiovascular Surgical History: Reports: None Respiratory Surgical History: Reports: Pneumonectomy GI Surgical History: Reports: Appendectomy Female Surgical History: Reports: Hysterectomy Other Musculoskeletal Surgeries/Procedures:: peripheral neuropathy, nerve damage to her legs and arms Social & Family History - Family History Family Medical History: Noncontributory Cardiac: Reports: Hypertension - Tobacco Use Smoking Status *Q: Former Smoker Used Tobacco, but Quit: Yes Month/Year Tobacco Last Used: long timw ago - Caffeine Use Caffeine Use: Reports: None - Recreational Drug Use Recreational Drug Use: No ED ROS GENERAL - Review of Systems Review Of Systems: See Below Constitutional: Reports: Decreased Appetite. Denies: Fever, Chills Respiratory: Reports: No Symptoms Cardiovascular: Reports: No Symptoms GI/Abdominal: Reports: Abdominal Pain, Diarrhea, Nausea, Vomiting : Reports: No Symptoms Skin: Reports: No Symptoms Neurological: Reports: No Symptoms ED EXAM, GENERAL - Physical Exam Exam: See Below Exam Limited By: No Limitations General Appearance: Alert, WD/WN, Moderate Distress Ear Exam: Bilateral Ear: TM normal Throat/Mouth: Normal Inspection, Normal Oropharynx Head: Atraumatic Neck: Normal Inspection, Supple, Non-Tender Respiratory/Chest: No Respiratory Distress, Lungs Clear, Normal Breath Sounds Cardiovascular: Regular Rate, Rhythm, No Edema GI/Abdominal: Distended, Guarding, Other (No bowel sounds heard to any quadrant. ) Extremities: No Pedal Edema, Normal Capillary Refill Neurological: Alert, Oriented Skin Exam: Warm, Dry, Intact Course - Vital Signs Last Recorded V/S: Last Vital Signs Temp 97.0 F 04/04/19 23:17 Pulse 55 L 04/04/19 23:17 Resp 20 04/04/19 23:17 BP 142/84 H 04/04/19 23:17 Pulse Ox 93 L 04/04/19 23:17 - Orders/Labs/Meds Orders: Active Orders 24 hr Category Date Time Status Abdomen 2V AP Flat Upright [CR] Stat Exams 04/04/19 23:04 Taken URINALYSIS W/O MICROSCOPIC [UA W/O MICROSCOPIC] [URIN] Lab 04/04/19 22:44 Ordered Stat Labs: Laboratory Tests 04/04/19 04/04/19 04/04/19 Range/Units 22:50 22:50 22:55 WBC 9.3 (5.0-10.0) 10^3/uL RBC 4.96 (4.00-5.50) 10^6/uL Hgb 15.5 (12.0-16.0) g/dL Hct 46.3 (37.0-47.0) % MCV 93.3 (82.0-94.0) fL MCH 31.3 (27.0-32.0) pg MCHC 33.5 (33.0-38.0) g/dL RDW Coeff of Estefanía 12.8 (11.0-15.0) % Plt Count 220 (150-400) 10^3/uL Neut % (Auto) 78.1 (35-85) % Lymph % (Auto) 11.4 (10-55) % [place] % (Auto) 8.8 (0-16) % Eos % (Auto) 1.4 (0-5) % Baso % (Auto) 0.3 (0-3) % Neut # (Auto) 7.28 H (1.80-7.00) 10^3/uL Lymph # (Auto) 1.06 (1.00-4.80) 10^3/uL [place] # (Auto) 0.82 H (0.00-0.80) 10^3/uL Eos # (Auto) 0.13 (0.00-0.45) 10^3/uL Baso # (Auto) 0.03 10^3/uL Sodium 144 (136-145) mEq/L Potassium 3.3 L (3.5-5.0) mEq/L Chloride 104 (98-106) mEq/L Carbon Dioxide 31 (21-32) mmol/L BUN 11 D (7-18) mg/dL Creatinine 0.7 (0.6-1.0) mg/dL Est Cr Clr Drug Dosing 84.53 mL/min Estimated GFR (MDRD) > 60 (>=60) mL/min Glucose 122 H (75-99) mg/dL Calcium 9.6 (8.4-10.1) mg/dL Total Bilirubin 0.3 (0.0-1.0) mg/dL AST 18 (15-37) U/L ALT 25 (12-78) U/L Alkaline Phosphatase 96 (46-116) U/L C-Reactive Protein < 0.2 L (0.2-0.8) mg/dL Total Protein 7.6 (6.4-8.2) g/dL Albumin 4.1 (3.4-5.0) g/dL - Re-Assessments/Exams Free Text/Narrative Re-Assessment/Exam: 04/04/19 23:27 Reviewed lab orders and normal xray with the pt and daughter. Will admit over night obs to hydrate and evaluate pain and repeat labs in the AM. Departure - Departure Time of Disposition: 23:33 Disposition: Refer to Observation Condition: Good Clinical Impression: Abdominal pain Qualifiers: Abdominal location: generalized Qualified Code(s): R10.84 - Generalized abdominal pain - Discharge Information *PRESCRIPTION DRUG MONITORING PROGRAM REVIEWED*: Not Applicable *COPY OF PRESCRIPTION DRUG MONITORING REPORT IN PATIENT KAREN: Not Applicable Forms: ED Department Discharge Additional Instructions: will admit observation for IV fluids, zofran for the vomiting and repeat labs in the AM. Will restrict to ice chips until vomiting subsides. Sepsis Event Note - Focused Exam Vital Signs: Vital Signs Temp Pulse Resp BP Pulse Ox 04/04/19 23:17 97.0 F 55 L 20 142/84 H 93 L Date Exam was Performed: 04/04/19 Time Exam was Performed: 23:32 - Problem List & Annotations (1) Abdominal pain SNOMED Code(s): 11400652 Code(s): R10.9 - UNSPECIFIED ABDOMINAL PAIN Status: Acute Priority: High Qualifiers: Abdominal location: generalized Qualified Code(s): R10.84 - Generalized abdominal pain - Problem List Review Problem List Initiated/Reviewed/Updated: Yes - My Orders Last 24 Hours: My Active Orders 04/04/19 22:44 URINALYSIS W/O MICROSCOPIC [UA W/O MICROSCOPIC] [URIN] Stat 04/04/19 23:04 Abdomen 2V AP Flat Upright [CR] Stat - Assessment/Plan Last 24 Hours: My Active Orders 04/04/19 22:44 URINALYSIS W/O MICROSCOPIC [UA W/O MICROSCOPIC] [URIN] Stat 04/04/19 23:04 Abdomen 2V AP Flat Upright [CR] Stat
[2019-04-04 23:24] LABS: CHLORIDE,CL 104 mEq/L (98-106); SODIUM,NA 144 mEq/L (136-145)
[2019-04-04] MEDS ORDERED: Ondansetron 4 MG/2 ML SDV IV PRN (23:53)
[2019-04-04] MEDS ORDERED: Acetaminophen/HYDROcodone 325-5 MG Tab PO PRN (23:53)
[2019-04-04] MEDS ORDERED: Albuterol 8 GM Inhaler INH PRN (23:53)
[2019-04-04] MEDS ORDERED: Sodium Chloride 0.9% 10 ML Syringe FLUSH PRN (23:53)
[2019-04-05] MEDS: Pantoprazole 40 MG Vial IVPUSH SCH ×2 (00:36→12:10)
[2019-04-05] MEDS: Sodium Chloride 0.9% 1,000 ML IV SCH ×3 (00:36→19:59)
[2019-04-05] MEDS ORDERED: Gabapentin 300 MG Cap PO SCH (08:00)
[2019-04-05] MEDS ORDERED: Non-Formulary Medication 1 Each (Umeclidinium Brm/Vilanterol Tr [Anoro Ellipta 62.5-25 Mcg IH SCH (08:00)
[2019-04-05] MEDS ORDERED: Sucralfate 1 GM Tab PO SCH (08:00)
--- NOTE | 2019-04-05 08:37 | PCM.PN ---
- General Info Date of Service: 04/05/19 Admission Dx/Problem (Free Text): abd pain with NV Functional Status: Reports: Pain Controlled - Review of Systems General: Reports: No Symptoms. Denies: Fever, Weakness HEENT: Reports: No Symptoms. Denies: Sinus Congestion, Sore Throat Pulmonary: Reports: No Symptoms. Denies: Shortness of Breath Cardiovascular: Reports: No Symptoms. Denies: Chest Pain Gastrointestinal: Reports: Abdominal Pain, Nausea. Denies: Diarrhea, Vomiting Genitourinary: Reports: No Symptoms Musculoskeletal: Reports: No Symptoms Skin: Reports: No Symptoms. Denies: Bruising, Rash Neurological: Reports: No Symptoms. Denies: Confusion, Dizziness, Headache Psychiatric: Reports: No Symptoms - Patient Data Vitals - Most Recent: Last Vital Signs Temp 36.4 C 04/05/19 04:00 Pulse 91 04/05/19 04:00 Resp 18 04/05/19 04:00 BP 98/66 04/05/19 04:00 Pulse Ox 93 L 04/05/19 04:00 Weight - Most Recent: 56.155 kg I&O - Last 24 Hours: Intake & Output 04/04/19 04/05/19 04/05/19 22:59 06:59 14:59 Intake Total 100 Output Total 550 Balance -450 Lab Results Last 24 Hours: Laboratory Results - last 24 hr 04/04/19 04/04/19 04/04/19 Range/Units 22:44 22:50 22:50 WBC 9.3 (5.0-10.0) 10^3/uL RBC 4.96 (4.00-5.50) 10^6/uL Hgb 15.5 (12.0-16.0) g/dL Hct 46.3 (37.0-47.0) % MCV 93.3 (82.0-94.0) fL MCH 31.3 (27.0-32.0) pg MCHC 33.5 (33.0-38.0) g/dL RDW Coeff of Estefanía 12.8 (11.0-15.0) % Plt Count 220 (150-400) 10^3/uL Neut % (Auto) 78.1 (35-85) % Lymph % (Auto) 11.4 (10-55) % [place] % (Auto) 8.8 (0-16) % Eos % (Auto) 1.4 (0-5) % Baso % (Auto) 0.3 (0-3) % Neut # (Auto) 7.28 H (1.80-7.00) 10^3/uL Lymph # (Auto) 1.06 (1.00-4.80) 10^3/uL [place] # (Auto) 0.82 H (0.00-0.80) 10^3/uL Eos # (Auto) 0.13 (0.00-0.45) 10^3/uL Baso # (Auto) 0.03 10^3/uL Sodium (136-145) mEq/L Potassium (3.5-5.0) mEq/L Chloride (98-106) mEq/L Carbon Dioxide (21-32) mmol/L BUN (7-18) mg/dL Creatinine (0.6-1.0) mg/dL Est Cr Clr Drug Dosing mL/min Estimated GFR (MDRD) (>=60) mL/min Glucose (75-99) mg/dL Calcium (8.4-10.1) mg/dL Total Bilirubin (0.0-1.0) mg/dL AST (15-37) U/L ALT (12-78) U/L Alkaline Phosphatase (46-116) U/L C-Reactive Protein < 0.2 L (0.2-0.8) mg/dL Total Protein (6.4-8.2) g/dL Albumin (3.4-5.0) g/dL Urine Color Yellow (YELLOW) Urine Appearance Clear (CLEAR) Urine pH 6.0 (4.5-8.0) Ur Specific [place] 1.025 H (1.003-1.020) Urine Protein Negative (NEGATIVE) mg/dL Urine Glucose (UA) Negative (NEGATIVE) mg/dL Urine Ketones Negative (NEGATIVE) mg/dL Urine Occult Blood Negative (NEGATIVE) Urine Nitrite Negative (NEGATIVE) Urine Bilirubin Negative (NEGATIVE) Urine Urobilinogen 0.2 (0.2-1.0) EU/dL Ur Leukocyte Esterase Negative (NEGATIVE) 04/04/19 04/05/19 04/05/19 Range/Units 22:55 07:00 07:00 WBC 5.5 (5.0-10.0) 10^3/uL RBC 4.13 (4.00-5.50) 10^6/uL Hgb 12.6 (12.0-16.0) g/dL Hct 39.1 (37.0-47.0) % MCV 94.7 H (82.0-94.0) fL MCH 30.5 (27.0-32.0) pg MCHC 32.2 L (33.0-38.0) g/dL RDW Coeff of Estefanía 12.6 (11.0-15.0) % Plt Count 181 (150-400) 10^3/uL Neut % (Auto) 63.6 (35-85) % Lymph % (Auto) 22.0 (10-55) % [place] % (Auto) 10.8 (0-16) % Eos % (Auto) 3.4 (0-5) % Baso % (Auto) 0.2 (0-3) % Neut # (Auto) 3.52 (1.80-7.00) 10^3/uL Lymph # (Auto) 1.22 (1.00-4.80) 10^3/uL [place] # (Auto) 0.60 (0.00-0.80) 10^3/uL Eos # (Auto) 0.19 (0.00-0.45) 10^3/uL Baso # (Auto) 0.01 10^3/uL Sodium 144 (136-145) mEq/L Potassium 3.3 L (3.5-5.0) mEq/L Chloride 104 (98-106) mEq/L Carbon Dioxide 31 (21-32) mmol/L BUN 11 D (7-18) mg/dL Creatinine 0.7 (0.6-1.0) mg/dL Est Cr Clr Drug Dosing 84.53 mL/min Estimated GFR (MDRD) > 60 (>=60) mL/min Glucose 122 H (75-99) mg/dL Calcium 9.6 (8.4-10.1) mg/dL Total Bilirubin 0.3 (0.0-1.0) mg/dL AST 18 (15-37) U/L ALT 25 (12-78) U/L Alkaline Phosphatase 96 (46-116) U/L C-Reactive Protein < 0.2 L (0.2-0.8) mg/dL Total Protein 7.6 (6.4-8.2) g/dL Albumin 4.1 (3.4-5.0) g/dL Urine Color (YELLOW) Urine Appearance (CLEAR) Urine pH (4.5-8.0) Ur Specific [place] (1.003-1.020) Urine Protein (NEGATIVE) mg/dL Urine Glucose (UA) (NEGATIVE) mg/dL Urine Ketones (NEGATIVE) mg/dL Urine Occult Blood (NEGATIVE) Urine Nitrite (NEGATIVE) Urine Bilirubin (NEGATIVE) Urine Urobilinogen (0.2-1.0) EU/dL Ur Leukocyte Esterase (NEGATIVE) Med Orders - Current: Current Medications Acetaminophen (Tylenol) 650 mg PO Q4H PRN PRN Reason: Pain (Mild 1-3)/fever Hydrocodone Bitart/Acetaminophen ([place] 325-5 Mg) 2 tab PO Q4H PRN PRN Reason: Pain (moderate 4-6) Albuterol (Ventolin Hfa) 0 gm INH Q4H PRN PRN Reason: Wheezing Gabapentin (Neurontin) 600 mg PO TID [facility] Sodium Chloride (Normal Saline) 1,000 mls @ 125 mls/hr IV ASDIRECTED [facility] Last Admin: 04/05/19 00:36 Dose: 125 mls/hr Mirtazapine (Remeron) 15 mg PO BEDTIME [facility] Non-Formulary Medication (Umeclidinium Brm/Vilanterol Tr [Anoro Ellipta 62.5-25 Mcg]) 1 puff IH DAILY [facility] Ondansetron HCl (Zofran) 8 mg IV Q4H PRN PRN Reason: Nausea/Vomiting Last Admin: 04/05/19 00:36 Dose: 8 mg Pantoprazole Sodium (Protonix Iv) 40 mg IVPUSH Q12H [facility] Last Admin: 04/05/19 00:36 Dose: 40 mg Ropinirole HCl (Requip) 1 mg PO BEDTIME [facility] Sodium Chloride (Saline Flush) 10 ml FLUSH ASDIRECTED PRN PRN Reason: Keep Vein Open Sucralfate (Carafate) 1 gm PO QID [facility] - Exam Quality Assessment: No: Supplemental Oxygen General: Alert, Oriented, Cooperative Neck: Supple, Trachea Midline Lungs: Clear to Auscultation, Normal Respiratory Effort Cardiovascular: Regular Rate, Regular Rhythm GI/Abdominal Exam: Normal Bowel Sounds, Soft, No Distention. No: Non-Tender ( epigastri tenderness with palpation) Back Exam: Normal Inspection, Full Range of Motion Extremities: Normal Inspection, Normal Range of Motion, Non-Tender, Normal Capillary Refill Peripheral Pulses: 2+: Radial (L), Radial (R), Posterior Tibial (L), Posterior Tibial (R) Skin: Warm, Dry, Intact Neurological: No New Focal Deficit, Normal Gait, Normal Speech Psy/Mental Status: Alert, Normal Affect, Normal Mood Sepsis Event Note - Evaluation Sepsis Screening Result: No Definite Risk - Focused Exam Vital Signs: Vital Signs Temp Pulse Resp BP Pulse Ox 04/05/19 04:00 36.4 C 91 18 98/66 93 L 04/04/19 23:53 36.1 C 58 L 20 142/78 H 93 L 04/04/19 23:17 36.1 C 55 L 20 142/84 H 93 L Date Exam was Performed: 04/05/19 Time Exam was Performed: 08:30 - Problem List & Annotations (1) Abdominal pain SNOMED Code(s): 19411646 Code(s): R10.9 - UNSPECIFIED ABDOMINAL PAIN Status: Acute Priority: High Current Visit: No Qualifiers: Abdominal location: generalized Qualified Code(s): R10.84 - Generalized abdominal pain (2) Enteritis SNOMED Code(s): 74684613 Code(s): K52.9 - NONINFECTIVE GASTROENTERITIS AND COLITIS, UNSPECIFIED Status: Acute Priority: High Current Visit: No - Problem List Review Problem List Initiated/Reviewed/Updated: Yes - Plan Plan:: will continue current treatment plan, will hydrate and will try to progress diet and plan for dc in am, adjustment to the tx plan will be made as needed
[2019-04-05] MEDS: SUCRALFATE 1 GM PO SCH ×3 (12:00→19:50)
[2019-04-05] MEDS: Acetaminophen 325 MG Tab PO PRN (12:11)
[2019-04-05] MEDS: Gabapentin 300 MG Cap*PT OWN MED PO SCH ×2 (17:16→22:02)
[2019-04-05] MEDS ORDERED: Mirtazapine 15 MG Tab PO SCH (20:00)
[2019-04-05] MEDS ORDERED: MIRTAZAPINE 15 MG PO SCH (20:00)
[2019-04-05] MEDS ORDERED: ROPINIROLE 1 MG PO SCH (20:00)
[2019-04-05] MEDS ORDERED: rOPINIRole 1 MG Tab PO SCH (20:00)
[2019-04-05] MEDS ORDERED: [UNRECOGNIZED DRUG - OTHER] PO SCH (20:00)
[2019-04-06] MEDS: Pantoprazole 40 MG Vial IVPUSH SCH ×2 (00:05→12:44)
[2019-04-06] MEDS: Acetaminophen 325 MG Tab PO PRN (00:08)
[2019-04-06] MEDS: Sodium Chloride 0.9% 1,000 ML IV SCH (04:03)
[2019-04-06] MEDS: SUCRALFATE 1 GM PO SCH ×3 (07:03→15:48)
[2019-04-06] MEDS: Gabapentin 300 MG Cap*PT OWN MED PO SCH ×2 (07:32→13:57)
--- NOTE | 2019-04-06 12:43 | PCM.PN ---
- General Info Date of Service: 04/06/19 Admission Dx/Problem (Free Text): abd pain with [place] Functional Status: Reports: Ambulating, Urinating. Denies: Tolerating Diet - Review of Systems General: Denies: Fever HEENT: Reports: No Symptoms. Denies: Sinus Congestion, Sore Throat Pulmonary: Reports: Shortness of Breath, Cough, Wheezing Cardiovascular: Reports: No Symptoms. Denies: Chest Pain Gastrointestinal: Reports: No Symptoms, Abdominal Pain, Decreased Appetite, Diarrhea, Nausea. Denies: Melena, Vomiting Genitourinary: Reports: No Symptoms Musculoskeletal: Reports: No Symptoms. Denies: Neck Pain, Back Pain Skin: Reports: No Symptoms. Denies: Bruising, Rash Neurological: Reports: No Symptoms. Denies: Confusion, Dizziness, Headache Psychiatric: Reports: No Symptoms - Patient Data Vitals - Most Recent: Last Vital Signs Temp 36.6 C 04/06/19 11:55 Pulse 76 04/06/19 11:55 Resp 18 04/06/19 11:55 BP 97/75 04/06/19 11:55 Pulse Ox 97 04/06/19 11:55 Weight - Most Recent: 59.148 kg I&O - Last 24 Hours: Intake & Output 04/05/19 04/06/19 04/06/19 22:59 06:59 14:59 Intake Total 1000 1650 Output Total 700 350 100 Balance 300 1300 -100 Med Orders - Current: Current Medications Acetaminophen (Tylenol) 650 mg PO Q4H PRN PRN Reason: Pain (Mild 1-3)/fever Last Admin: 04/06/19 00:08 Dose: 650 mg Hydrocodone Bitart/Acetaminophen ([place] 325-5 Mg) 2 tab PO Q4H PRN PRN Reason: Pain (moderate 4-6) Albuterol (Ventolin Hfa) 0 gm INH Q4H PRN PRN Reason: Wheezing Sodium Chloride (Normal Saline) 1,000 mls @ 125 mls/hr IV ASDIRECTED [facility] Last Admin: 04/06/19 04:03 Dose: 125 mls/hr Non-Formulary Medication (Umeclidinium Brm/Vilanterol Tr [Anoro Ellipta 62.5-25 Mcg]) 1 puff IH DAILY [facility] Ondansetron HCl (Zofran) 8 mg IV Q4H PRN PRN Reason: Nausea/Vomiting Last Admin: 04/05/19 00:36 Dose: 8 mg Pantoprazole Sodium (Protonix Iv) 40 mg IVPUSH Q12H [facility] Last Admin: 04/06/19 00:05 Dose: 40 mg Sucralfate 1 Gm Tab* (Pt Own Med*) 0 each PO QIDACANDBED [facility] Last Admin: 04/06/19 12:18 Dose: 1 each Gabapentin 300 Mg (Cap*Pt Own Med*) 0 each PO TID [facility] Last Admin: 04/06/19 07:32 Dose: 2 each Mirtazapine 15 Mg (Tab*Pt Ownmed*) 0 each PO BEDTIME [facility] Last Admin: 04/05/19 19:49 Dose: 1 each Ropinirole 1 Mg Tab* (Pt Own Med*) 0 each PO BEDTIME [facility] Last Admin: 04/05/19 19:49 Dose: 1 each Sodium Chloride (Saline Flush) 10 ml FLUSH ASDIRECTED PRN PRN Reason: Keep Vein Open Discontinued Medications Gabapentin (Neurontin) 600 mg PO TID [facility] Last Admin: 04/05/19 19:30 Dose: Not Given Mirtazapine (Remeron) 15 mg PO BEDTIME [facility] Ropinirole HCl (Requip) 1 mg PO BEDTIME [facility] Sucralfate (Carafate) 1 gm PO QID [facility] Last Admin: 04/05/19 19:30 Dose: Not Given - Exam Quality Assessment: Supplemental Oxygen (2 Liters [place]) General: Alert, Oriented, Cooperative, No Acute Distress HEENT: Pupils Equal Neck: Supple, Trachea Midline Lungs: Normal Respiratory Effort, Wheezing (scattered exp wheezing in the bases) Cardiovascular: Regular Rate, Regular Rhythm GI/Abdominal Exam: Normal Bowel Sounds, Soft, Non-Tender, No Distention Back Exam: Normal Inspection, Full Range of Motion Extremities: Normal Inspection, Normal Range of Motion, Non-Tender, Normal Capillary Refill Peripheral Pulses: 2+: Radial (L), Radial (R) Skin: Warm, Dry, Intact Neurological: No New Focal Deficit Psy/Mental Status: Alert, Normal Affect, Normal Mood Sepsis Event Note - Evaluation Sepsis Screening Result: No Definite Risk - Focused Exam Vital Signs: Vital Signs Temp Temp Pulse Resp BP BP Pulse Ox 04/06/19 11:55 36.6 C 76 18 97/75 97 04/06/19 07:01 36.1 C 62 16 102/69 93 L 04/06/19 04:00 36.1 C 57 L 18 84/61 L 95 Date Exam was Performed: 04/06/19 Time Exam was Performed: 12:43 - Problem List & Annotations (1) Abdominal pain SNOMED Code(s): 52909334 Code(s): R10.9 - UNSPECIFIED ABDOMINAL PAIN Status: Acute Priority: High Current Visit: No Qualifiers: Abdominal location: generalized Qualified Code(s): R10.84 - Generalized abdominal pain (2) Enteritis SNOMED Code(s): 56536032 Code(s): K52.9 - NONINFECTIVE GASTROENTERITIS AND COLITIS, UNSPECIFIED Status: Acute Priority: High Current Visit: No - Problem List Review Problem List Initiated/Reviewed/Updated: Yes - My Orders Last 24 Hours: My Active Orders 04/06/19 12:39 Chest 2V [CR] Routine 04/06/19 Breakfast Soft Diet [DIET] - Plan Plan:: will continue current treatment plan, will hydrate and will try to progress diet and plan for dc in am, adjustment to the tx plan will be made as needed 04/06/2019 1230 The patient was evaluated, the patient does wear oxygen O2 2 L nasal cannula at home as needed. When discussing the oxygen use at home she advises that she only uses it as needed that she does not know of any specific time that she supposed to be wearing it such as wearing it every night. The patient advises she does have some mild shortness of breath. The patient has had some abdominal cramping and has had diarrhea today. The patient advises that she still feels nauseous there is no more vomiting. She has been advanced to full liquid diet. She advises that she is able to eat it but that does make her nauseated. The patient was advised to wear her oxygen at 2 L nasal cannula however she constantly removes the oxygen. A chest x-ray will be performed to rule out any pathology. I do suspect that the patient will need to be kept one other night for further evaluation and treatment and changes to her treatment plans can be based on the chest x-ray and her progression. I do suspect that the patient should be able to be discharged tomorrow.
[2019-04-06 16:08] VITALS: BP 101/62; PULSE 80
--- NOTE | 2019-04-06 16:28 | PCM.DCSUM1 ---
Discharge Summary - Hospital Course Free Text/Narrative:: Patient was admitted for what was suspected to be a gastroenteritis. During her stay she did have some continued respiratory symptoms where her oxygen saturation would drop however the patient did not complain of significant shortness of breath. The patient does have COPD/emphysema and is supposed to wear oxygen at home which she is unsure exactly the duration other than as needed. See today's progress note for more details. A chest x-ray was performed and does not show any acute infiltrates or pneumothorax. It does show some COPD which is chronic for the patient. After discussing all of this with the patient she prefers to go home today. She is feeling better from the GI standpoint she is tolerating her breakfast and her lunch without any problems. The patient was advised to increase her fluids no spicy or greasy foods she is to follow-up in the clinic this coming week. The patient is also advised to use her oxygen [id number] especially at night to help prevent her oxygen saturation from dropping. She is also advised to follow-up in the office this week and discuss further pulmonary assessment and possible need to wear oxygen [id number]. HPI Initial Comments: Gastroenteritis, see all dictation prior to this Diagnosis: Stroke: No - Discharge Data Discharge Date: 04/06/19 Discharge Disposition: Home, Self-Care 01 Condition: Good - Referral to Home Health Primary Care Physician: Ian Laguerre MD - Discharge Diagnosis/Problem(s) (1) Abdominal pain SNOMED Code(s): 98230051 ICD Code: R10.9 - UNSPECIFIED ABDOMINAL PAIN Status: Acute Priority: High Current Visit: No Qualifiers: Abdominal location: generalized Qualified Code(s): R10.84 - Generalized abdominal pain (2) Enteritis SNOMED Code(s): 89970394 ICD Code: K52.9 - NONINFECTIVE GASTROENTERITIS AND COLITIS, UNSPECIFIED Status: Acute Priority: High Current Visit: No - Patient Instructions Diet: Heart Healthy Diet Activity: As Tolerated Showering/Bathing: May Shower Notify Provider of: Fever, Increased Pain, Nausea and/or Vomiting - Discharge Plan *PRESCRIPTION DRUG MONITORING PROGRAM REVIEWED*: Not Applicable *COPY OF PRESCRIPTION DRUG MONITORING REPORT IN PATIENT KAREN: Not Applicable Home Medications: Home Meds Gabapentin 600 mg PO TID 03/02/14 [History] Cyanocobalamin (Vitamin B12) [Vitamin B12] 1,000 mcg IM Q30D 05/01/14 [History] Albuterol Sulfate [Proair Hfa] 2 puff INH Q4HR PRN 08/12/15 [History] Mirtazapine 15 mg PO BEDTIME 10/19/16 [History] Alendronate Sodium 70 mg PO MO 09/10/18 [History] Pantoprazole Sodium [Protonix] 40 mg PO DAILY 09/10/18 [History] Sucralfate 1 gm PO QID 09/10/18 [History] Umeclidinium Brm/Vilanterol Tr [Anoro Ellipta 62.5-25 MCG] 1 puff IH DAILY 09/10 [History] rOPINIRole [Requip] 1 mg PO BEDTIME 09/10/18 [History] Oxygen Therapy Mode: Nasal Cannula (Oxygen at 2 L nasal cannula around-the- clock for now) Oxygen Flow Rate (L/min): 2 Forms: ED Department Discharge Referrals: Ian Laguerre MD [Primary Care Provider] - - Discharge Summary/Plan Comment DC Time >30 min.: No - General Info Date of Service: 04/06/19 Admission Dx/Problem (Free Text: abd pain with NV Functional Status: Reports: Pain Controlled - Review of Systems General: Reports: No Symptoms. Denies: Fever, Weakness HEENT: Reports: No Symptoms Pulmonary: Reports: No Symptoms, Cough (Occasional nonproductive cough), Wheezing. Denies: Shortness of Breath (Denies any shortness of breath currently ) Cardiovascular: Reports: No Symptoms. Denies: Chest Pain Gastrointestinal: Reports: No Symptoms. Denies: Abdominal Pain, Melena, Nausea , Vomiting Genitourinary: Reports: No Symptoms Musculoskeletal: Reports: No Symptoms. Denies: Neck Pain, Back Pain Skin: Reports: No Symptoms Neurological: Reports: No Symptoms Psychiatric: Reports: No Symptoms - Patient Data Vitals - Most Recent: Last Vital Signs Temp 37.2 C 04/06/19 16:00 Pulse 80 04/06/19 16:00 Resp 18 04/06/19 16:00 BP 101/62 04/06/19 16:00 Pulse Ox 92 L 04/06/19 16:00 Weight - Most Recent: 59.148 kg I&O - Last 24 hours: Intake & Output 04/06/19 04/06/19 04/06/19 06:59 14:59 22:59 Intake Total 1650 Output Total 350 100 Balance 1300 -100 Med Orders - Current: Current Medications Acetaminophen (Tylenol) 650 mg PO Q4H PRN PRN Reason: Pain (Mild 1-3)/fever Last Admin: 04/06/19 00:08 Dose: 650 mg Hydrocodone Bitart/Acetaminophen ([place] 325-5 Mg) 2 tab PO Q4H PRN PRN Reason: Pain (moderate 4-6) Albuterol (Ventolin Hfa) 0 gm INH Q4H PRN PRN Reason: Wheezing Sodium Chloride (Normal Saline) 1,000 mls @ 125 mls/hr IV ASDIRECTED [facility] Last Admin: 04/06/19 04:03 Dose: 125 mls/hr Non-Formulary Medication (Umeclidinium Brm/Vilanterol Tr [Anoro Ellipta 62.5-25 Mcg]) 1 puff IH DAILY JASMEET Ondansetron HCl (Zofran) 8 mg IV Q4H PRN PRN Reason: Nausea/Vomiting Last Admin: 04/05/19 00:36 Dose: 8 mg Pantoprazole Sodium (Protonix Iv) 40 mg IVPUSH Q12H [facility] Last Admin: 04/06/19 12:44 Dose: 40 mg Sucralfate 1 Gm Tab* (Pt Own Med*) 0 each PO QIDACANDBED [facility] Last Admin: 04/06/19 15:48 Dose: 1 each Gabapentin 300 Mg (Cap*Pt Own Med*) 0 each PO TID [facility] Last Admin: 04/06/19 13:57 Dose: 2 each Mirtazapine 15 Mg (Tab*Pt Ownmed*) 0 each PO BEDTIME [facility] Last Admin: 04/05/19 19:49 Dose: 1 each Ropinirole 1 Mg Tab* (Pt Own Med*) 0 each PO BEDTIME [facility] Last Admin: 04/05/19 19:49 Dose: 1 each Sodium Chloride (Saline Flush) 10 ml FLUSH ASDIRECTED PRN PRN Reason: Keep Vein Open Discontinued Medications Gabapentin (Neurontin) 600 mg PO TID [facility] Last Admin: 04/05/19 19:30 Dose: Not Given Mirtazapine (Remeron) 15 mg PO BEDTIME [facility] Ropinirole HCl (Requip) 1 mg PO BEDTIME [facility] Sucralfate (Carafate) 1 gm PO QID [facility] Last Admin: 04/05/19 19:30 Dose: Not Given - Exam Quality Assessment: Reports: Supplemental Oxygen General: Reports: Alert, Oriented, Cooperative, No Acute Distress Neck: Reports: Supple, Trachea Midline Lungs: Reports: Normal Respiratory Effort, Wheezing (Scattered expiratory wheezing) Cardiovascular: Reports: Regular Rate, Regular Rhythm, No Murmurs GI/Abdominal Exam: Normal Bowel Sounds, Soft, Non-Tender Back Exam: Reports: Normal Inspection, Full Range of Motion Extremities: Normal Inspection, Normal Range of Motion, Non-Tender, No Pedal Edema, Normal Capillary Refill Skin: Reports: Warm, Dry, Intact Neurological: Reports: No New Focal Deficit Psy/Mental Status: Reports: Alert, Normal Affect, Normal Mood
== END 2019-04-06 17:00 | disposition home or self-care (01) ==
LOC: CC.ED 22:33 → CC.MS 23:30 → CC.ED 23:31 → CC.MS 23:35 → UNDOADMOB 23:48 → UNDODISOB 04-06 17:00
PROVIDERS: ADMIT Physician Assistant Medical; ATTEND Family Medicine
DX: R10.84 Generalized abdominal pain (principal); K52.9 Noninfective gastroenteritis and colitis, unspecified; R06.02 Shortness of breath; J44.9 Chronic obstructive pulmonary disease, unspecified; K21.9 Gastro-esophageal reflux disease without esophagitis; F41.9 Anxiety disorder, unspecified; F32.9 Major depressive disorder, single episode, unspecified; G62.9 Polyneuropathy, unspecified; Z79.899 Other long term (current) drug therapy; Z87.891 Personal history of nicotine dependence; Z99.81 Dependence on supplemental oxygen
CPT/HCPCS: 36415; 71046; 74019; 80053; 81003; 85025; 86140; 96361; 96374; 96375; 96376; 99285-25; A9270-GY; C9113; G0378; J2405; J7030

== ENCOUNTER 2019-04-08 22:04 | Emergency (ER) | payer MEDICAID ==
[2019-04-08] MEDS ORDERED: Cyclobenzaprine 10 MG Tab PO ONE (22:05)
[2019-04-08] MEDS ORDERED: Acetaminophen/HYDROcodone 325-5 MG Tab PO ONE (22:05)
[2019-04-08] MEDS ORDERED: Ketorolac 10 MG Tab PO ONE (22:05)
[2019-04-08] MEDS: Ketorolac 60 MG/2 ML SDV IM ONE (22:22)
[2019-04-08] MEDS: Morphine 2 MG/ML Syringe IM ONE (23:18)
--- NOTE | 2019-04-08 23:18 | EDM.PDOC ---
ED HPI GENERAL MEDICAL PROBLEM - General Chief Complaint: Back Pain or Injury Stated Complaint: back pain Time Seen by Provider: 04/08/19 22:24 Source of Information: Reports: Patient History Limitations: Reports: No Limitations - History of Present Illness INITIAL COMMENTS - FREE TEXT/NARRATIVE: Saranya is a 53 yo female who presents to the ED ,accompanied by sister, with complaints of lower back pain rating it a 10/10. She states it started earlier this evening when she bent over to picker tender her dog. Admits she felt some discomfort then and started to get really bad after she took a shower and lifted her leg to dry off. She admits the pain is in her lower back area with it radiating down both legs. She states if she walks bent over it is at least tolerable and is unable to straighten her back. Denies any bowel or bladder dysfunction. Was recently hospitalized over the weekend with abdominal pain, which has subsided. Denies any recent falls or trauma. States this has happened before but never this bad. She did try taking Tylenol and ibuprofen without any relief. Treatments ASSISTANT COMMUNITY MANAGER: Reports: Acetaminophen, NSAIDS Lower Back Pain Score (Numeric/FACES): 10 - Related Data Allergies Allergy/AdvReac Type Severity Reaction Status Date / Time No Known Allergies Allergy Verified 04/04/19 22:37 Home Meds: Home Meds Gabapentin 600 mg PO TID 03/02/14 [History] Cyanocobalamin (Vitamin B12) [Vitamin B12] 1,000 mcg IM Q30D 05/01/14 [History] Albuterol Sulfate [Proair Hfa] 2 puff INH Q4HR PRN 08/12/15 [History] Mirtazapine 15 mg PO BEDTIME 10/19/16 [History] Alendronate Sodium 70 mg PO MO 09/10/18 [History] Pantoprazole Sodium [Protonix] 40 mg PO DAILY 09/10/18 [History] Sucralfate 1 gm PO QID 09/10/18 [History] Umeclidinium Brm/Vilanterol Tr [Anoro Ellipta 62.5-25 MCG] 1 puff IH DAILY 09/10 [History] rOPINIRole [Requip] 1 mg PO BEDTIME 09/10/18 [History] Past Medical History HEENT History: Reports: Impaired Vision Other HEENT History: broke her glasses recently, hard to read without them Cardiovascular History: Reports: SOB on Exertion Respiratory History: Reports: Bronchitis, Recurrent, COPD, Pneumonia, Recurrent , Pneumothorax, SOB Other Respiratory History: Goal: to increase her activity with less SOB; says she gets SOB when trying to clean her house; 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 Rice in July Gastrointestinal History: Reports: GERD Other Gastrointestinal History: says her appetite is good Genitourinary History: Reports: None MATERIALS MANAGER History: Reports: , Other (See Below) Other MATERIALS MANAGER History: Adenocarcinoma of cervix; says some of her SOB and weakness has been since her cancer Musculoskeletal History: Reports: Other (See Below) Other Musculoskeletal History: leg nerve pain. Neurological History: Reports: Neuropathy, Peripheral Other Neuro History: B12 deficiency per history, headaches Psychiatric History: Reports: Anxiety, Depression Hematologic History: Reports: Anemia Oncologic (Cancer) History: Reports: Cervix Other Oncologic History: cervical cancer - Past Surgical History Cardiovascular Surgical History: Reports: None Respiratory Surgical History: Reports: Pneumonectomy GI Surgical History: Reports: Appendectomy Female Surgical History: Reports: Hysterectomy Other Musculoskeletal Surgeries/Procedures:: peripheral neuropathy, nerve damage to her legs and arms Social & Family History - Family History Family Medical History: Noncontributory Cardiac: Reports: Hypertension - Tobacco Use Smoking Status *Q: Former Smoker Used Tobacco, but Quit: Yes Month/Year Tobacco Last Used: 2015 - Caffeine Use Caffeine Use: Reports: None ED ROS GENERAL - Review of Systems Review Of Systems: Comprehensive ROS is negative, except as noted in HPI. Constitutional: Reports: No Symptoms. Denies: Fever, Chills HEENT: Reports: No Symptoms Respiratory: Reports: No Symptoms Cardiovascular: Reports: No Symptoms Endocrine: Reports: No Symptoms GI/Abdominal: Denies: Abdominal Pain, Nausea, Vomiting : Denies: Discharge, Dysuria, Flank Pain, Hematuria Musculoskeletal: Reports: Back Pain, Muscle Stiffness, Other (back spasms) Skin: Reports: No Symptoms Neurological: Reports: Difficulty Walking. Denies: Numbness, Tingling, Weakness ED EXAM,LOWER BACK PAIN/INJURY - Physical Exam Exam: See Below Exam Limited By: No Limitations General Appearance: Alert, Mild Distress Throat/Mouth: Normal Inspection, Normal Voice, No Airway Compromise Head: Atraumatic, Normocephalic Neck: Normal Inspection, Supple, Non-Tender Respiratory/Chest: No Respiratory Distress, No Accessory Muscle Use GI/Abdominal: Normal Bowel Sounds, Soft, Non-Tender, No Organomegaly, No Distention, No Abnormal Bruit, No Mass Back Exam: Decreased Range of Motion, Muscle Spasm, Paraspinal Tenderness, Vertebral Tenderness, Other (Increase discomfort with extension of low back and getting up from seated position. ). No: CVA Tenderness (L), CVA Tenderness (R) Extremities: Normal Inspection, Non-Tender Neurological: Alert, Normal Mood/Affect, Normal Dorsiflexion, Normal Plantar Flexion, Normal Gait, No Motor/Sensory Deficits, Oriented x 3 Psychiatric: Normal Affect, Normal Mood Skin Exam: Warm, Dry, Intact, Normal Color, No Rash Course - Vital Signs Last Recorded V/S: Last Vital Signs Temp 97.1 F 04/08/19 23:35 Pulse 73 04/08/19 23:35 Resp 16 04/08/19 23:35 BP 136/89 04/08/19 23:35 Pulse Ox 93 L 04/08/19 23:35 - Orders/Labs/Meds Orders: Active Orders 24 hr Category Date Time Status Lumbar Spine 2 or 3V [CR] Stat Exams 04/08/19 22:12 Taken Meds: Medications Discontinued Medications Generic Name Dose Route Start Last Admin Trade Name Sridharq PRN Reason Stop Dose Admin Hydrocodone Bitart/Acetaminophen 2 packet 04/08/19 23:25 Take Home: Acetaminophen/Hydrocod, 2 Tab Pack PO 04/08/19 23:26 ONETIME ONE Cyclobenzaprine HCl 1 packet 04/08/19 23:25 Take Home: Cyclobenzaprine 10 Mg, 4 Tab Pack PO 04/08/19 23:26 ONETIME ONE Ketorolac Tromethamine 60 mg 04/08/19 22:12 04/08/19 22:22 Toradol IM 04/08/19 22:13 60 mg ONETIME ONE Administration Ketorolac Tromethamine 1 packet 04/08/19 23:25 Take Home: Ketorolac 10 Mg, 4 Tab Pack PO 04/08/19 23:26 ONETIME ONE Morphine Sulfate 2 mg 04/08/19 23:12 04/08/19 23:18 Morphine IM 04/08/19 23:13 2 mg ONETIME ONE Administration Orphenadrine Citrate 60 mg 04/08/19 22:13 04/08/19 22:18 Norflex IM 04/08/19 22:14 60 mg ONETIME ONE Administration Departure - Departure Time of Disposition: 23:47 Disposition: Home, Self-Care 01 Clinical Impression: Lumbar paraspinal muscle spasm - Discharge Information Referrals: PCP,None [Primary Care Provider] - Forms: ED Department Discharge Additional Instructions: 1) Flexeril 10mg - 1 tablet every 8 hours as needed for back spasms 2) [place] 5/325 - 1 tablet every 6 hours as needed for break thru pain 3) Toradol 10mg - 1 tablet every 8 hours as needed for pain 4) May apply heat to back as needed 5) Encourage drinking water 6) No sudden movements as may worsen back spasms 7) if any worsening of symptoms, new onset of symptoms or any concerns at all, recommend returning for reevaluation. Sepsis Event Note - Evaluation Sepsis Screening Result: No Definite Risk - Focused Exam Vital Signs: Vital Signs Temp Pulse Resp BP Pulse Ox 04/08/19 23:35 97.1 F 73 16 136/89 93 L 04/08/19 22:56 67 149/84 H 04/08/19 22:04 96.4 F L 84 16 155/91 H 97 Date Exam was Performed: 04/08/19 Time Exam was Performed: 23:46 - Problem List & Annotations (1) Lumbar paraspinal muscle spasm SNOMED Code(s): 50020405189796666, 04000307589076448 Code(s): M62.830 - MUSCLE SPASM OF BACK Status: Acute Current Visit: Yes - My Orders Last 24 Hours: My Active Orders 04/08/19 22:12 Lumbar Spine 2 or 3V [CR] Stat - Assessment/Plan Last 24 Hours: My Active Orders 04/08/19 22:12 Lumbar Spine 2 or 3V [CR] Stat Plan: Initially, Saranya was given 60 mg of Toradol and 60 mg of Norflex IM which did give her some relief in ED. Pain persisted and 2mg of Morphine was given IM as well. Pain continued to gradually subside. Pain currently 2 out of 10. Vital signs remained stable. Patient felt comfortable with discharge. Will discharge home at this time in satisfactory condition.
[2019-04-08 23:38] VITALS: BP 136/89; PULSE 73
[2019-04-08] MEDS: Take Home: Acetaminophen/HYDROcodone 325-5 MG, 2 Tab Pack PO ONE (23:50)
[2019-04-08] MEDS: Take Home: Cyclobenzaprine 10 MG Tab, 4 Tab Pack PO ONE (23:50)
[2019-04-08] MEDS: Take Home: Ketorolac 10 MG Tab, 4 Tab Pack PO ONE (23:50)
== END 2019-04-08 23:50 | disposition home or self-care (01) ==
LOC: CC.ED 22:04
DX: M62.830 Muscle spasm of back (principal); J44.9 Chronic obstructive pulmonary disease, unspecified; K21.9 Gastro-esophageal reflux disease without esophagitis; G62.9 Polyneuropathy, unspecified; Z79.899 Other long term (current) drug therapy
CPT/HCPCS: 72100; 96372; 99283; A9270; J1885; J2270; J2360

== ENCOUNTER 2019-06-12 21:37 | Observation (INO) | payer MEDICAID ==
[2019-06-12] MEDS ORDERED: Ondansetron 4 MG/2 ML SDV IVPUSH ONE (21:45)
[2019-06-12] MEDS ORDERED: Lactated Ringers 1,000 ML IV SCH (21:45)
--- NOTE | 2019-06-12 22:09 | EDM.PDOC ---
ED HPI GENERAL MEDICAL PROBLEM - General Chief Complaint: Abdominal Pain Stated Complaint: abdominal pain Time Seen by Provider: 06/12/19 22:07 Source of Information: Reports: Patient History Limitations: Reports: No Limitations - History of Present Illness INITIAL COMMENTS - FREE TEXT/NARRATIVE: Saranya is a 53 yo female who presents ambulatory to the ED with c/o upper abdominal pain, nausea, vomiting, and diarrhea. She reports she has been struggling with this same abdominal pain on and off for some time now. Did seem to improve intermittently after starting Protonix and Carafate. Reports she started feeling nauseated earlier today and then throughout the day her pain has worsened. She reports 10/10 constant epigastric abdominal pain. She has had 2 emesis since arrival. Has also had a couple episode of diarrhea today. Denies any hematemesis, bloody/dark stools. No fevers, chills, malaise, chest pain, cough. Does reports SOB, which is chronic. Has home O2. 2L via [place]. Reports she last tried to eat around 1730 but was unable to eat more than a couple bites. Has not noticed difference in pain in regards to oral intake. Onset: Today Duration: Constant, Getting Worse Location: Reports: Abdomen Quality: Reports: Ache, Burning, Stabbing Severity: Severe Improves with: Reports: None Worsens with: Denies: Breathing, Eating Associated Symptoms: Reports: Loss of Appetite, Nausea/Vomiting, Shortness of Breath. Denies: Confusion, Chest Pain, Cough, cough w sputum, Diaphoresis, Fever/Chills, Headaches, Malaise, Rash, Seizure, Syncope Abdominal Pain Score (Numeric/FACES): 10 - Related Data Allergies Allergy/AdvReac Type Severity Reaction Status Date / Time No Known Allergies Allergy Verified 06/12/19 21:39 Home Meds: Home Meds Gabapentin 600 mg PO TID 03/02/14 [History] Cyanocobalamin (Vitamin B12) [Vitamin B12] 1,000 mcg IM Q30D 05/01/14 [History] Albuterol Sulfate [Proair Hfa] 2 puff INH Q4HR PRN 08/12/15 [History] Mirtazapine 15 mg PO BEDTIME 10/19/16 [History] Alendronate Sodium 70 mg PO MO 09/10/18 [History] Pantoprazole Sodium [Protonix] 40 mg PO DAILY 09/10/18 [History] Sucralfate 1 gm PO QID 09/10/18 [History] Umeclidinium Brm/Vilanterol Tr [Anoro Ellipta 62.5-25 MCG] 1 puff IH DAILY 09/10 [History] rOPINIRole [Requip] 1 mg PO BEDTIME 09/10/18 [History] Past Medical History HEENT History: Reports: Impaired Vision Other HEENT History: broke her glasses recently, hard to read without them Cardiovascular History: Reports: SOB on Exertion Respiratory History: Reports: Bronchitis, Recurrent, COPD, Pneumonia, Recurrent , Pneumothorax, SOB Other Respiratory History: Goal: to increase her activity with less SOB; says she gets SOB when trying to clean her house; 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 Rice in July Gastrointestinal History: Reports: GERD Other Gastrointestinal History: says her appetite is good Genitourinary History: Reports: None TRAVEL NURSE History: Reports: , Other (See Below) Other TRAVEL NURSE History: Adenocarcinoma of cervix; says some of her SOB and weakness has been since her cancer Musculoskeletal History: Reports: Other (See Below) Other Musculoskeletal History: leg nerve pain. Neurological History: Reports: Neuropathy, Peripheral Other Neuro History: B12 deficiency per history, headaches Psychiatric History: Reports: Anxiety, Depression Hematologic History: Reports: Anemia Oncologic (Cancer) History: Reports: Cervix Other Oncologic History: cervical cancer - Past Surgical History Cardiovascular Surgical History: Reports: None Respiratory Surgical History: Reports: Pneumonectomy GI Surgical History: Reports: Appendectomy Female Surgical History: Reports: Hysterectomy Other Musculoskeletal Surgeries/Procedures:: peripheral neuropathy, nerve damage to her legs and arms Social & Family History - Family History Family Medical History: Noncontributory Cardiac: Reports: Hypertension - Tobacco Use Smoking Status *Q: Former Smoker Used Tobacco, but Quit: Yes Month/Year Tobacco Last Used: 4 years ago - Caffeine Use Caffeine Use: Reports: Coffee, Soda - Recreational Drug Use Recreational Drug Use: No ED ROS GENERAL - Review of Systems Review Of Systems: See Below Constitutional: Reports: Decreased Appetite. Denies: Fever, Chills, Malaise, Weakness HEENT: Reports: No Symptoms Respiratory: Reports: Shortness of Breath. Denies: Wheezing, Pleuritic Chest Pain, Cough, Sputum, Hemoptysis Cardiovascular: Reports: Dyspnea on Exertion. Denies: Chest Pain, Edema, Lightheadedness Endocrine: Reports: No Symptoms GI/Abdominal: Reports: Abdominal Pain, Diarrhea, Decreased Appetite, Nausea, Vomiting. Denies: Black Stool, Bloody Stool, Constipation, Distension, Hematemesis, Hematochezia, Melena : Reports: No Symptoms Musculoskeletal: Reports: No Symptoms Skin: Reports: No Symptoms Neurological: Reports: No Symptoms Psychiatric: Reports: No Symptoms Hematologic/Lymphatic: Reports: No Symptoms ED EXAM, GI/ABD - Physical Exam Exam: See Below Exam Limited By: No Limitations General Appearance: Alert, WD/WN, Mild Distress, Active Emesis Throat/Mouth: Normal Inspection, Normal Lips, Normal Teeth, Normal Gums, Normal Oropharynx, Normal Voice, No Airway Compromise Head: Atraumatic, Normocephalic Neck: Normal Inspection, Supple, Non-Tender, Full Range of Motion Respiratory/Chest: No Respiratory Distress, No Accessory Muscle Use, Decreased Breath Sounds Cardiovascular: Regular Rate, Rhythm, No Edema, Tachycardia GI/Abdominal Exam: Normal Bowel Sounds, Soft, No Distention, No Abnormal Bruit, No Mass, Tender (epigastric), Other (negative murphys sign). No: Guarding, Rigid, Rebound Back Exam: Normal Inspection, Full Range of Motion. No: CVA Tenderness (L), CVA Tenderness (R) Extremities: Normal Inspection, Normal Range of Motion, Non-Tender, Normal Capillary Refill, No Pedal Edema Neurological: Alert, Oriented, CN II-XII Intact, Normal Cognition, Normal Gait, Normal Reflexes, No Motor/Sensory Deficits Psychiatric: Flat Affect Skin Exam: Warm, Dry, Intact, Normal Color, No Rash Course - Vital Signs Last Recorded V/S: Last Vital Signs Temp 97.9 F 06/12/19 21:37 Pulse 126 H 06/12/19 21:37 Resp 20 06/12/19 21:37 BP 152/95 H 06/12/19 21:37 Pulse Ox 98 06/12/19 21:37 - Orders/Labs/Meds Orders: Active Orders 24 hr Category Date Time Status Patient Status Manage Transfer [TRANSFER] Routine ADT 06/12/19 22:49 Active Lactated Ringers [Ringers, Lactated] 1,000 ml Med 06/12/19 21:45 Active IV BOLUS Pantoprazole [ProTONIX IV] Med 06/12/19 22:30 Active 40 mg IVPUSH Q24H Resuscitation Status Routine Resus Stat 06/12/19 22:50 Ordered Medication Orders Lactated Ringer's (Ringers, Lactated) 1,000 mls @ 999 mls/hr IV BOLUS [facility] Last Admin: 06/12/19 21:55 Dose: 999 mls/hr Pantoprazole Sodium (Protonix Iv) 40 mg IVPUSH Q24H [facility] Last Admin: 06/12/19 22:33 Dose: 40 mg Labs: Laboratory Tests 06/12/19 06/12/19 06/12/19 Range/Units 22:00 22:00 22:15 WBC 8.1 (5.0-10.0) 10^3/uL RBC 4.73 (4.00-5.50) 10^6/uL Hgb 15.0 (12.0-16.0) g/dL Hct 43.8 (37.0-47.0) % MCV 92.6 (82.0-94.0) fL MCH 31.7 (27.0-32.0) pg MCHC 34.2 (33.0-38.0) g/dL RDW Coeff of Estefanía 12.9 (11.0-15.0) % Plt Count 281 (150-400) 10^3/uL Neut % (Auto) 66.2 (35-85) % Lymph % (Auto) 20.3 (10-55) % [place] % (Auto) 11.5 (0-16) % Eos % (Auto) 1.5 (0-5) % Baso % (Auto) 0.5 (0-3) % Neut # (Auto) 5.38 (1.80-7.00) 10^3/uL Lymph # (Auto) 1.65 (1.00-4.80) 10^3/uL [place] # (Auto) 0.93 H (0.00-0.80) 10^3/uL Eos # (Auto) 0.12 (0.00-0.45) 10^3/uL Baso # (Auto) 0.04 10^3/uL Sodium 142 (136-145) mEq/L Potassium 3.8 (3.5-5.0) mEq/L Chloride 102 (98-106) mEq/L Carbon Dioxide 30 (21-32) mmol/L BUN 17 D (7-18) mg/dL Creatinine 0.6 (0.6-1.0) mg/dL Est Cr Clr Drug Dosing 94.83 mL/min Estimated GFR (MDRD) > 60 (>=60) mL/min Glucose 124 H (75-99) mg/dL Calcium 9.4 (8.4-10.1) mg/dL Total Bilirubin 0.4 (0.0-1.0) mg/dL AST 20 (15-37) U/L ALT 32 (12-78) U/L Alkaline Phosphatase 96 (46-116) U/L C-Reactive Protein 0.3 (0.2-0.8) mg/dL Total Protein 7.6 (6.4-8.2) g/dL Albumin 4.1 (3.4-5.0) g/dL Amylase 67 (25-115) U/L Lipase 128 (73-393) U/L Urine Color Yellow (YELLOW) Urine Appearance Slightly cloudy (CLEAR) Urine pH 5.5 (4.5-8.0) Ur Specific [place] 1.025 H (1.003-1.020) Urine Protein Negative (NEGATIVE) mg/dL Urine Glucose (UA) Negative (NEGATIVE) mg/dL Urine Ketones Negative (NEGATIVE) mg/dL Urine Occult Blood Negative (NEGATIVE) Urine Nitrite Negative (NEGATIVE) Urine Bilirubin Negative (NEGATIVE) Urine Urobilinogen 0.2 (0.2-1.0) EU/dL Ur Leukocyte Esterase Negative (NEGATIVE) Meds: Medications Generic Name Dose Route Start Last Admin Trade Name Freq PRN Reason Stop Dose Admin Lactated Ringer's 1,000 mls @ 999 mls/hr 06/12/19 21:45 06/12/19 21:55 Ringers, Lactated IV 999 mls/hr BOLUS JASMEET Administration Pantoprazole Sodium 40 mg 06/12/19 22:30 06/12/19 22:33 Protonix Iv IVPUSH 40 mg Q24H JASMEET Administration Discontinued Medications Generic Name Dose Route Start Last Admin Trade Name Freq PRN Reason Stop Dose Admin Al Hydroxide/Mg Hydroxide 30 0 ml 06/12/19 22:27 06/12/19 22:37 ml/ Lidocaine HCl 15 ml PO 06/12/19 22:28 45 ml ONETIME ONE Administration Ondansetron HCl 4 mg 06/12/19 21:45 06/12/19 21:51 Zofran IVPUSH 06/12/19 21:46 4 mg STAT ONE Administration - Re-Assessments/Exams Free Text/Narrative Re-Assessment/Exam: Labs all stable. Patient has had this abdominal pain on and off for some time now. Discussed my concern for peptic ulcer with patient. Consulted with Dr. Plasencia regarding possible EGD tomorrow. He is agreeable. Will try to arrange with surgical staff for mid morning tomorrow. Will also get gallbladder US. Departure - Departure Time of Disposition: 23:05 Disposition: Refer to Observation Condition: Fair Clinical Impression: Abdominal pain Qualifiers: Abdominal location: epigastric Qualified Code(s): R10.13 - Epigastric pain - Discharge Information *PRESCRIPTION DRUG MONITORING PROGRAM REVIEWED*: Not Applicable *COPY OF PRESCRIPTION DRUG MONITORING REPORT IN PATIENT KAREN: Not Applicable Forms: ED Department Discharge Sepsis Event Note - Evaluation Sepsis Screening Result: No Definite Risk - Focused Exam Vital Signs: Vital Signs Temp Pulse Resp BP Pulse Ox 06/12/19 21:37 97.9 F 126 H 20 152/95 H 98 Date Exam was Performed: 06/12/19 Time Exam was Performed: 22:58 - Problem List & Annotations (1) Abdominal pain SNOMED Code(s): 49683082 Code(s): R10.9 - UNSPECIFIED ABDOMINAL PAIN Status: Acute Current Visit: Yes Qualifiers: Abdominal location: epigastric Qualified Code(s): R10.13 - Epigastric pain - Problem List Review Problem List Initiated/Reviewed/Updated: Yes - My Orders Last 24 Hours: My Active Orders 06/12/19 21:45 Lactated Ringers [Ringers, Lactated] 1,000 ml IV BOLUS 06/12/19 22:30 Pantoprazole [ProTONIX IV] 40 mg IVPUSH Q24H 06/12/19 22:49 Patient Status Manage Transfer [TRANSFER] Routine 06/12/19 22:50 Resuscitation Status Routine - Assessment/Plan Admission H&P: Please use this note as an admission H&P Last 24 Hours: My Active Orders 06/12/19 21:45 Lactated Ringers [Ringers, Lactated] 1,000 ml IV BOLUS 06/12/19 22:30 Pantoprazole [ProTONIX IV] 40 mg IVPUSH Q24H 06/12/19 22:49 Patient Status Manage Transfer [TRANSFER] Routine 06/12/19 22:50 Resuscitation Status Routine Assessment:: Abdominal pain, epigastric Vomiting Diarrhea Plan: Patient presented to ED with c/o 10/10 constant epigastric abdominal pain, nausea, vomiting, and diarrhea. She had 2 emesis while in ED. Lab workup unremarkable. Patient received 4 mg Zofran, GI cocktail, 1 L LR fluid bolus, and 40 mg Protonix. Given recurrence of this type of pain, despite treatment with Protonix and Carafate, I do feel patient should proceed with EGD. Consulted with Dr. Plasencia, general surgery, who is agreeable to complete this tomorrow. Will also get gallbladder US in am. Keep patient NPO. Patient will be admitted observation for IVF and antiemetics. Patient is agreeable with plan.
[2019-06-12 22:18] LABS: CHLORIDE,CL 102 mEq/L (98-106); SODIUM,NA 142 mEq/L (136-145)
[2019-06-12] MEDS ORDERED: Alum Hydrox/Mag Hydrox/Simeth 30 ML, Lidocaine 2% 15 ML PO ONE ×2 (22:27)
[2019-06-12] MEDS ORDERED: Pantoprazole 40 MG Vial IVPUSH SCH (22:30)
[2019-06-12] MEDS ORDERED: Temazepam 15 MG Cap PO PRN (23:23)
[2019-06-12] MEDS: Lactated Ringers 1,000 ML IV SCH (23:36)
[2019-06-13] MEDS ORDERED: Pantoprazole 40 MG Vial IVPUSH SCH (07:00)
[2019-06-13] MEDS ORDERED: Non-Formulary Medication 1 Each (Umeclidinium Brm/Vilanterol Tr [Anoro Ellipta 62.5-25 Mcg IH SCH (08:00)
[2019-06-13] MEDS ORDERED: Gabapentin 300 MG Cap PO SCH ×2 (08:00→20:00)
[2019-06-13] MEDS ORDERED: Sucralfate 1 GM Tab PO SCH (08:00)
[2019-06-13] MEDS: Lactated Ringers 1,000 ML IV SCH (10:11)
[2019-06-13] MEDS ORDERED: Midazolam 1 MG/ML 2 ML SDV ONE (10:54)
[2019-06-13] MEDS ORDERED: Benzocaine 20% Oral Spray 59.2 ML Canister MUCMEM ONE (11:12)
[2019-06-13] MEDS ORDERED: Midazolam 1 MG/ML 2 ML SDV IV ONE (11:15)
[2019-06-13 12:34] VITALS: BP 98/63; PULSE 72
--- NOTE | 2019-06-13 17:53 | OR ---
DATE OF OPERATION: 06/12/2019 PREOPERATIVE DIAGNOSIS: PERSISTENT NAUSEA AND VOMITING. POSTOPERATIVE DIAGNOSIS: PERSISTENT NAUSEA AND VOMITING. SURGEON: Willem Plasencia MD PROCEDURE: ESOPHAGOGASTRODUODENOSCOPY WITH BIOPSY FOR HELICOBACTER PYLORI. ANESTHESIA: Conscious sedation with IV Versed. SPECIMEN: STELLA biopsy, pyloric antrum. FINDINGS: A small hiatal hernia, otherwise normal. No evidence of anything that would be causative of her nausea and vomiting. INDICATIONS: This 53-year-old female has been seen multiple times for persistent nausea and vomiting. She presented to the emergency room last night with persistent vomiting and abdominal pain. Workup to date has been negative. DESCRIPTION OF PROCEDURE: After adequate preparation, a gastroscope was inserted into the esophagus. This was passed down to the distal esophagus. She does show a small hiatal hernia, but this would be of no consequence. There were no masses or ulcerations or evidence of reflux esophagitis. The scope was advanced into the stomach and both forward and retroflexed views were done and were normal. The scope was advanced through the pylorus, and the first and second part of the duodenum was also normal. On withdrawal of the scope in the stomach, there were 2 biopsies taken, one for permanent pathology and one for STELLA H. pylori analysis. Air was suctioned from the stomach and the scope removed. BPB/MODL /[id number]
[2019-06-13] MEDS ORDERED: rOPINIRole 1 MG Tab PO SCH (20:00)
[2019-06-13] MEDS ORDERED: Mirtazapine 15 MG Tab PO SCH (20:00)
--- NOTE | 2019-06-15 20:37 | PCM.DCSUM1 ---
Discharge Summary - Hospital Course HPI Initial Comments: Saranya is a 53 year old female who presented to the ER with complaints of upper quadrant abdominal pain. She admitted to nausea, vomiting and diarrhea. Had been having intermittent issues with similar type concerns for several months. Was admitted for same in April. She has been on Carafate and Protonix and has helped at times. In ER, rated pain at a 10. Had 2 emesis in ER. Had not been able to eat much in the late afternoon but eating does cause increased pain. Was given Zofran, GI cocktail and IV Protonix in ER and did see improvement. Labs essentially normal. Due to recurring issues like this, patient was admitted with plan to proceed with GB ultrasound and EGD in am. Diagnosis: Stroke: No Modified Hettinger Scale: No Symptoms at All Modified Francheska Scale Score: 0 - Discharge Data Discharge Date: 06/13/19 Discharge Disposition: Home, Self-Care 01 Condition: Fair - Referral to Home Health Primary Care Physician: PCP None - Discharge Diagnosis/Problem(s) (1) Abdominal pain SNOMED Code(s): 55044589 ICD Code: R10.9 - UNSPECIFIED ABDOMINAL PAIN Status: Acute Qualifiers: Abdominal location: epigastric Qualified Code(s): R10.13 - Epigastric pain - Patient Summary/Data Complications: none Consults: Consultations 06/12/19 23:23 Consult to Physician [CONS] Routine Hospital Course: Patient is pain free this am. She had gallbladder ultrasound this am, no obvious abnormalities noted. EGD done. Dr. Plasencia reports small hiatal hernia but no gastritis or ulcer. Did have one loose stool this am. Will proceed with HIDA scan next week and follow up with Dr. Laguerre next week. Continue Protonix. - Patient Instructions Diet: Usual Diet as Tolerated Activity: As Tolerated Other/Special Instructions: HIDA scan as scheduled - Discharge Plan *PRESCRIPTION DRUG MONITORING PROGRAM REVIEWED*: Not Applicable *COPY OF PRESCRIPTION DRUG MONITORING REPORT IN PATIENT KAREN: Not Applicable Home Medications: Home Meds Gabapentin 600 mg PO ASDIRECTED 03/02/14 [History] Cyanocobalamin (Vitamin B12) [Vitamin B12] 1,000 mcg IM Q30D 05/01/14 [History] Albuterol Sulfate [Proair Hfa] 2 puff INH Q4HR PRN 08/12/15 [History] Mirtazapine 15 mg PO BEDTIME 10/19/16 [History] Alendronate Sodium 70 mg PO MO 09/10/18 [History] Pantoprazole Sodium [Protonix] 40 mg PO DAILY 09/10/18 [History] Sucralfate 1 gm PO QID 09/10/18 [History] Umeclidinium Brm/Vilanterol Tr [Anoro Ellipta 62.5-25 MCG] 1 puff IH DAILY 09/10 [History] rOPINIRole [Requip] 1 mg PO BEDTIME 09/10/18 [History] Forms: ED Department Discharge Referrals: Ian Laguerre MD [ED Physician] - (Follow up in [address] Laguerre) - Discharge Summary/Plan Comment DC Time >30 min.: No - General Info Date of Service: 06/13/19 Admission Dx/Problem (Free Text: Abdominal Pain Functional Status: Reports: Pain Controlled, Tolerating Diet, Ambulating - Review of Systems General: Reports: Fatigue HEENT: Reports: No Symptoms Pulmonary: Denies: Shortness of Breath, Cough Cardiovascular: Denies: Chest Pain, Edema, Lightheadedness Gastrointestinal: Denies: Abdominal Pain, Diarrhea, Nausea, Vomiting Genitourinary: Reports: No Symptoms Musculoskeletal: Reports: No Symptoms Skin: Reports: No Symptoms Psychiatric: Reports: No Symptoms - Patient Data Vitals - Most Recent: Last Vital Signs Temp 207.3 F H 06/13/19 12:00 Pulse 72 06/13/19 12:00 Resp 20 06/13/19 12:00 BP 98/63 06/13/19 12:00 Pulse Ox 98 06/13/19 12:00 Weight - Most Recent: 128 lb 12.8 oz Med Orders - Current: Current Medications Discontinued Medications Benzocaine (Hurricaine 20% [place]) 1 ml MUCMEM .STK-MED ONE Stop: 06/13/19 11:13 Last Admin: 06/13/19 11:12 Dose: 1 ml Al Hydroxide/Mg Hydroxide 30 (ml/ Lidocaine HCl 15 ml) 0 ml PO ONETIME ONE Stop: 06/12/19 22:28 Last Admin: 06/12/19 22:37 Dose: 45 ml Gabapentin (Neurontin) 600 mg PO BID@0800,1400 JASMEET Gabapentin (Neurontin) 900 mg PO BEDTIME JASMEET Lactated Ringer's (Ringers, Lactated) 1,000 mls @ 999 mls/hr IV BOLUS [facility] Last Admin: 06/12/19 21:55 Dose: 999 mls/hr Lactated Ringer's (Ringers, Lactated) 1,000 mls @ 100 mls/hr IV ASDIRECTED [facility] Last Admin: 06/13/19 10:11 Dose: 100 mls/hr Midazolam HCl (Versed 1 Mg/Ml) Confirm Administered Dose 6 mg .ROUTE .STK-MED ONE Stop: 06/13/19 10:55 Last Admin: 06/13/19 13:11 Dose: Not Given Midazolam HCl (Versed 1 Mg/Ml) 4 mg IV .STK-MED ONE Stop: 06/13/19 11:16 Last Admin: 06/13/19 11:15 Dose: 4 mg Mirtazapine (Remeron) 15 mg PO BEDTIME [facility] Non-Formulary Medication (Umeclidinium Brm/Vilanterol Tr [Anoro Ellipta 62.5-25 Mcg]) 1 puff IH DAILY [facility] Ondansetron HCl (Zofran) 4 mg IVPUSH STAT ONE Stop: 06/12/19 21:46 Last Admin: 06/12/19 21:51 Dose: 4 mg Pantoprazole Sodium (Protonix Iv) 40 mg IVPUSH Q24H [facility] Last Admin: 06/12/19 22:33 Dose: 40 mg Pantoprazole Sodium (Protonix Iv) 40 mg IVPUSH Q24H [facility] Last Admin: 06/13/19 07:16 Dose: Not Given Ropinirole HCl (Requip) 1 mg PO BEDTIME [facility] Sucralfate (Carafate) 1 gm PO QID [facility] Temazepam (Restoril) 15 mg PO BEDTIME PRN PRN Reason: Sleep - Exam General: Reports: Alert, Oriented HEENT: Reports: Mucous Membr. Moist/[place] Neck: Reports: Supple Lungs: Reports: Clear to Auscultation, Normal Respiratory Effort Cardiovascular: Reports: Regular Rate, Regular Rhythm GI/Abdominal Exam: Normal Bowel Sounds, Soft, Non-Tender Extremities: Normal Inspection, No Pedal Edema Skin: Reports: Warm, Dry
== END 2019-06-13 16:30 | disposition home or self-care (01) ==
LOC: CC.ED 21:37 → CC.MS 22:50
PROVIDERS: ADMIT Nurse Practitioner Family; ATTEND Family Medicine
DX: R11.2 Nausea with vomiting, unspecified (principal); R10.13 Epigastric pain; R19.7 Diarrhea, unspecified; K44.9 Diaphragmatic hernia without obstruction or gangrene; J44.9 Chronic obstructive pulmonary disease, unspecified; F41.9 Anxiety disorder, unspecified; F32.9 Major depressive disorder, single episode, unspecified; Z87.891 Personal history of nicotine dependence
CPT/HCPCS: 36415; 43239; 76705; 80053; 81003; 82150; 83690; 85025; 86140; 87081; 96361; 96374; 96375; 99285-25; A9270-GY; C9113; G0378; J2250; J2405; J7120

== ENCOUNTER 2019-08-23 23:00 | Observation (INO) | payer MEDICAID ==
[2019-08-23] MEDS ORDERED: Ondansetron 4 MG/2 ML SDV IVPUSH ONE (23:20)
[2019-08-23] MEDS ORDERED: Pantoprazole 40 MG Vial IVPUSH ONE (23:20)
--- NOTE | 2019-08-23 23:21 | EDM.PDOC ---
ED HPI GENERAL MEDICAL PROBLEM - General Chief Complaint: Abdominal Pain Stated Complaint: "stomach pain and throwing up" Time Seen by Provider: 08/23/19 23:13 Source of Information: Reports: Patient History Limitations: Reports: No Limitations - History of Present Illness INITIAL COMMENTS - FREE TEXT/NARRATIVE: Patient to the emergency department where she has some epigastric abdominal pain with nausea and vomiting off and on since about 1:00 today. The patient denies any chest pain denies any change in her shortness of breath she does have COPD and wears oxygen at home. She advises that the vomiting was food type material versus any coffee-ground material no black or tarry stools. She denies any fever chills she denies any ear, nose, throat symptoms denies any other symptoms Onset: Today Duration: Hour(s): Location: Reports: Abdomen Quality: Reports: Ache Severity: Moderate Improves with: Reports: None Worsens with: Reports: None Associated Symptoms: Reports: Nausea/Vomiting. Denies: Chest Pain, Headaches, Shortness of Breath, Weakness Treatments RIGGER: Reports: Other (see below) (none) Abdomen Pain Score (Numeric/FACES): 10 - Related Data Allergies Allergy/AdvReac Type Severity Reaction Status Date / Time No Known Allergies Allergy Verified 08/24/19 00:07 Home Meds: Home Meds Gabapentin 600 mg PO ASDIRECTED 03/02/14 [History] Cyanocobalamin (Vitamin B12) [Vitamin B12] 1,000 mcg IM Q30D 05/01/14 [History] Albuterol Sulfate [Proair Hfa] 2 puff INH Q4HR PRN 08/12/15 [History] Pantoprazole Sodium [Protonix] 40 mg PO DAILY 09/10/18 [History] Sucralfate 1 gm PO QID PRN 09/10/18 [History] Umeclidinium Brm/Vilanterol Tr [Anoro Ellipta 62.5-25 MCG] 1 puff IH DAILY 09/10/18 [History] rOPINIRole [Requip] 1 mg PO BEDTIME 09/10/18 [History] LORazepam [Lorazepam] 1 mg PO BEDTIME 08/24/19 [History] Past Medical History HEENT History: Reports: Impaired Vision Other HEENT History: broke her glasses recently, hard to read without them Cardiovascular History: Reports: SOB on Exertion Respiratory History: Reports: Bronchitis, Recurrent, COPD, Pneumonia, Recurrent, Pneumothorax, SOB Other Respiratory History: Goal: to increase her activity with less SOB; says she gets SOB when trying to clean her house; 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 Rice in July Gastrointestinal History: Reports: GERD Other Gastrointestinal History: says her appetite is good Genitourinary History: Reports: None [employer] DEVELOPER History: Reports: , Other (See Below) Other [employer] DEVELOPER History: Adenocarcinoma of cervix; says some of her SOB and weakness has been since her cancer Musculoskeletal History: Reports: Other (See Below) Other Musculoskeletal History: leg nerve pain. Neurological History: Reports: Neuropathy, Peripheral Other Neuro History: B12 deficiency per history, headaches Psychiatric History: Reports: Anxiety, Depression Hematologic History: Reports: Anemia Oncologic (Cancer) History: Reports: Cervix Other Oncologic History: cervical cancer - Past Surgical History Cardiovascular Surgical History: Reports: None Respiratory Surgical History: Reports: Pneumonectomy GI Surgical History: Reports: Appendectomy Female Surgical History: Reports: Hysterectomy Other Musculoskeletal Surgeries/Procedures:: peripheral neuropathy, nerve damage to her legs and arms Social & Family History - Family History Family Medical History: Noncontributory Cardiac: Reports: Hypertension - Tobacco Use Smoking Status *Q: Former Smoker Used Tobacco, but Quit: Yes Month/Year Tobacco Last Used: 2015 - Caffeine Use Caffeine Use: Reports: Coffee, Soda ED ROS GENERAL - Review of Systems Review Of Systems: See Below Constitutional: Reports: No Symptoms. Denies: Fever, Chills HEENT: Reports: No Symptoms Respiratory: Reports: No Symptoms. Denies: Shortness of Breath Cardiovascular: Reports: No Symptoms. Denies: Chest Pain GI/Abdominal: Reports: Abdominal Pain, Nausea, Vomiting. Denies: Black Stool, Bloody Stool (Gastric), Distension, Melena : Reports: No Symptoms Musculoskeletal: Reports: No Symptoms Skin: Reports: No Symptoms Neurological: Reports: No Symptoms Psychiatric: Reports: No Symptoms ED EXAM, GI/ABD - Physical Exam Exam: See Below Exam Limited By: No Limitations General Appearance: Alert, WD/WN, No Apparent Distress Ears: Normal External Exam Nose: Normal Inspection Throat/Mouth: Normal Inspection, Normal Lips, Normal Voice, No Airway Compromise Head: Atraumatic, Normocephalic Neck: Normal Inspection, Supple, Non-Tender, Full Range of Motion Respiratory/Chest: No Respiratory Distress, Lungs Clear, Normal Breath Sounds, Chest Non-Tender Cardiovascular: Normal Peripheral Pulses, Regular Rate, Rhythm, No Murmur GI/Abdominal Exam: Soft. No: Non-Tender (Gastric tenderness with palpation), No Distention, Distended, Guarding, Rigid Back Exam: Normal Inspection, Full Range of Motion Extremities: Normal Inspection, Normal Range of Motion, Non-Tender, Normal Capillary Refill Neurological: Alert, Oriented, Normal Cognition, Normal Gait, No Motor/Sensory Deficits Psychiatric: Normal Affect, Normal Mood Skin Exam: Warm, Dry, Intact, Normal Color Course - Vital Signs Text/Narrative:: 2348 the patient has been evaluated in the emergency department the lab is pending and labs are collected are in process. The patient has an IV established and is getting IV fluids as well as she has been given Zofran 4 mg IV and tonics 40 mg IV. In review the patient's chart back in June 2019 the patient had an ultrasound as well as a HIDA scan that was normal. The patient also underwent an EGD that was normal. See all of these dictations for details. 0015 patient was evaluated in the emergency department the CBC is normal general chemistries overall are essentially negative amylase lipase are normal CRP is normal, lactic acid is 2.5. The patient will be admitted to observation for a CT of the abdomen pelvis with IV and oral contrast and to control her nausea vomiting. A Gastroccult as well as a stool Hemoccult has also been obtained and is pending. Once the CT of the abdomen pelvis is back if that is within normal limits the patient will have her blood be evaluated in the morning and a disposition will be made at that time. I discussed all this with the patient and the patient agrees Last Recorded V/S: Last Vital Signs Temp 36.6 C 08/23/19 23:00 Pulse 126 H 08/23/19 23:00 Resp 20 08/23/19 23:00 BP 133/97 H 08/23/19 23:00 Pulse Ox 96 08/23/19 23:00 - Orders/Labs/Meds Orders: Active Orders 24 hr Category Date Time Status Patient Status Manage Transfer [TRANSFER] Routine ADT 08/24/19 00:06 Ordered OCCULT BLD GASTRIC Stat Lab 08/24/19 00:02 Ordered OCCULT BLOOD SCREEN [OP] Stat Lab 08/23/19 23:18 Ordered Sodium Chloride 0.9% [Normal Saline] 1,000 ml Med 08/23/19 23:30 Active IV ASDIRECTED Resuscitation Status Routine Resus Stat 08/24/19 00:09 Ordered Medication Orders Sodium Chloride (Normal Saline) 1,000 mls @ 100 mls/hr IV ASDIRECTED JASMEET Last Admin: 08/23/19 23:31 Dose: 100 mls/hr Documented by: ALEXANDRA Labs: Laboratory Tests 08/23/19 08/23/19 08/23/19 Range/Units 23:39 23:39 23:39 WBC 12.3 H (5.0-10.0) 10^3/uL RBC 5.13 (4.00-5.50) 10^6/uL Hgb 16.1 H (12.0-16.0) g/dL Hct 47.7 H (37.0-47.0) % MCV 93.0 (82.0-94.0) fL MCH 31.4 (27.0-32.0) pg MCHC 33.8 (33.0-38.0) g/dL RDW Coeff of Estefanía 12.3 (11.0-15.0) % Plt Count 286 (150-400) 10^3/uL Neut % (Auto) 79.2 (35-85) % Lymph % (Auto) 11.8 (10-55) % [place] % (Auto) 7.7 (0-16) % Eos % (Auto) 1.1 (0-5) % Baso % (Auto) 0.2 (0-3) % Neut # (Auto) 9.76 H (1.80-7.00) 10^3/uL Lymph # (Auto) 1.46 (1.00-4.80) 10^3/uL [place] # (Auto) 0.95 H (0.00-0.80) 10^3/uL Eos # (Auto) 0.14 (0.00-0.45) 10^3/uL Baso # (Auto) 0.03 10^3/uL Sodium 145 (136-145) mEq/L Potassium 3.8 (3.5-5.0) mEq/L Chloride 102 (98-106) mEq/L Carbon Dioxide 29 (21-32) mmol/L BUN 10 (7-18) mg/dL Creatinine 0.8 (0.6-1.0) mg/dL Est Cr Clr Drug Dosing 73.09 mL/min Estimated GFR (MDRD) > 60 (>=60) mL/min Glucose 157 H D (75-99) mg/dL Lactic Acid 2.8 H (0.4-2.0) mmol/L Calcium 9.6 (8.4-10.1) mg/dL Total Bilirubin 0.3 (0.0-1.0) mg/dL AST 18 (15-37) U/L ALT 20 (12-78) U/L Alkaline Phosphatase 92 (46-116) U/L C-Reactive Protein 0.3 (0.2-0.8) mg/dL Total Protein 7.9 (6.4-8.2) g/dL Albumin 4.1 (3.4-5.0) g/dL Amylase 72 (25-115) U/L Lipase 136 (73-393) U/L Meds: Medications Generic Name Dose Route Start Last Admin Trade Name Freq PRN Reason Stop Dose Admin Sodium Chloride 1,000 mls @ 100 mls/hr 08/23/19 23:30 08/23/19 23:31 Normal Saline IV 100 mls/hr ASDIRECTED JASMEET Administration Discontinued Medications Generic Name Dose Route Start Last Admin Trade Name Freq PRN Reason Stop Dose Admin Ondansetron HCl 4 mg 08/23/19 23:20 08/23/19 23:33 Zofran IVPUSH 08/23/19 23:21 4 mg ONETIME ONE Administration Pantoprazole Sodium 40 mg 08/23/19 23:20 08/23/19 23:40 Protonix Iv IVPUSH 08/23/19 23:21 40 mg ONETIME ONE Administration Departure - Departure Time of Disposition: 00:17 Disposition: Refer to Observation Clinical Impression: Lactic acidosis, Nausea & vomiting, Tachycardia Abdominal pain Qualifiers: Abdominal location: epigastric Qualified Code(s): R10.13 - Epigastric pain - Discharge Information *PRESCRIPTION DRUG MONITORING PROGRAM REVIEWED*: Not Applicable *COPY OF PRESCRIPTION DRUG MONITORING REPORT IN PATIENT KAREN: Not Applicable Forms: ED Department Discharge Sepsis Event Note (ED) - Evaluation Sepsis Screening Result: No Definite Risk - Focused Exam Vital Signs: Vital Signs Temp Pulse Resp BP Pulse Ox 08/23/19 23:00 36.6 C 126 H 20 133/97 H 96 - Problem List & Annotations (1) Abdominal pain SNOMED Code(s): 38997374 Code(s): R10.9 - UNSPECIFIED ABDOMINAL PAIN Status: Acute Priority: High Current Visit: Yes Qualifiers: Abdominal location: epigastric Qualified Code(s): R10.13 - Epigastric pain (2) Lactic acidosis SNOMED Code(s): 46630427 Code(s): E87.2 - ACIDOSIS Status: Acute Priority: High Current Visit: Yes (3) Nausea & vomiting SNOMED Code(s): 63738018 Code(s): R11.2 - NAUSEA WITH VOMITING, UNSPECIFIED Status: Acute Priority: Medium Current Visit: Yes Qualifiers: Vomiting type: bilious vomiting Qualified Code(s): R11.14 - Bilious vomiting (4) Tachycardia SNOMED Code(s): 9518371 Code(s): R00.0 - TACHYCARDIA, UNSPECIFIED Status: Acute Priority: Medium Current Visit: Yes - Problem List Review Problem List Initiated/Reviewed/Updated: Yes - My Orders Last 24 Hours: My Active Orders 08/23/19 23:18 OCCULT BLOOD SCREEN [OP] Stat 08/23/19 23:30 Sodium Chloride 0.9% [Normal Saline] 1,000 ml IV ASDIRECTED 08/24/19 00:02 OCCULT BLD GASTRIC Stat 08/24/19 00:06 Patient Status Manage Transfer [TRANSFER] Routine 08/24/19 00:09 Resuscitation Status Routine - Assessment/Plan Admission H&P: Please use this note as an admission H&P Last 24 Hours: My Active Orders 08/23/19 23:18 OCCULT BLOOD SCREEN [OP] Stat 08/23/19 23:30 Sodium Chloride 0.9% [Normal Saline] 1,000 ml IV ASDIRECTED 08/24/19 00:02 OCCULT BLD GASTRIC Stat 08/24/19 00:06 Patient Status Manage Transfer [TRANSFER] Routine 08/24/19 00:09 Resuscitation Status Routine Plan: The patient's past medical history, past surgical history, past social history and past family medical history is been reviewed see the nursing notes for details also see the course for details of the patient's emergency department visit and admission.
[2019-08-23] MEDS ORDERED: Sodium Chloride 0.9% 1,000 ML IV SCH (23:30)
[2019-08-23 23:55] LABS: CHLORIDE,CL 102 mEq/L (98-106); SODIUM,NA 145 mEq/L (136-145)
[2019-08-24] MEDS ORDERED: Cyanocobalamin (Vitamin B12) 1,000 MCG/ML SDV IM SCH (00:51)
[2019-08-24] MEDS ORDERED: Ondansetron 4 MG Tab.DIS PO PRN (00:51)
[2019-08-24] MEDS ORDERED: Enoxaparin 40 MG/0.4 ML Syringe SUBCUT ONE (01:00)
[2019-08-24] MEDS ORDERED: Albuterol 8 GM Inhaler INH PRN (01:18)
[2019-08-24] MEDS: Sodium Chloride 0.9% 1,000 ML IV SCH ×3 (01:23→21:33)
[2019-08-24] MEDS: Sucralfate 1 GM Tab PO SCH ×5 (01:26→19:37)
[2019-08-24 07:21] LABS: CHLORIDE,CL 110 mEq/L (98-106); SODIUM,NA 147 mEq/L (136-145)
[2019-08-24] MEDS ORDERED: Iopamidol 755 Mg/ML 100 ML Bottle IVPUSH ONE (08:01)
[2019-08-24] MEDS: Pantoprazole 40 MG Vial IVPUSH SCH ×2 (08:09→20:12)
[2019-08-24] MEDS: Gabapentin 300 MG Cap PO SCH ×2 (09:40→12:23)
[2019-08-24] MEDS: Albuterol/Ipratropium 3.0-0.5 MG/3 ML Neb Soln INH SCH ×3 (09:41→12:22)
[2019-08-24] MEDS: Metoclopramide 10 MG/2 ML SDV IVPUSH SCH ×2 (09:44→17:31)
--- NOTE | 2019-08-24 10:44 | PCM.PN ---
- General Info Date of Service: 08/24/19 Admission Dx/Problem (Free Text): abd pain with N and lactic acidosis Functional Status: Reports: Ambulating - Review of Systems General: Denies: Fever HEENT: Reports: No Symptoms Pulmonary: Reports: No Symptoms. Denies: Shortness of Breath Cardiovascular: Reports: No Symptoms. Denies: Chest Pain Gastrointestinal: Reports: Abdominal Pain, Nausea. Denies: Vomiting (vomiting has decreased) Genitourinary: Reports: No Symptoms Musculoskeletal: Reports: No Symptoms Skin: Reports: No Symptoms Neurological: Reports: No Symptoms Psychiatric: Reports: No Symptoms - Patient Data Vitals - Most Recent: Last Vital Signs Temp 36.8 C 08/24/19 08:00 Pulse 116 H 08/24/19 08:00 Resp 20 08/24/19 08:00 BP 139/91 H 08/24/19 08:00 Pulse Ox 95 08/24/19 08:00 Weight - Most Recent: 56.88 kg I&O - Last 24 Hours: Intake & Output 08/23/19 08/24/19 08/24/19 22:59 06:59 14:59 Intake Total 100 Output Total 175 Balance 100 -175 Lab Results Last 24 Hours: Laboratory Results - last 24 hr 08/23/19 08/23/19 08/23/19 Range/Units 23:39 23:39 23:39 WBC 12.3 H (5.0-10.0) 10^3/uL RBC 5.13 (4.00-5.50) 10^6/uL Hgb 16.1 H (12.0-16.0) g/dL Hct 47.7 H (37.0-47.0) % MCV 93.0 (82.0-94.0) fL MCH 31.4 (27.0-32.0) pg MCHC 33.8 (33.0-38.0) g/dL RDW Coeff of Estefanía 12.3 (11.0-15.0) % Plt Count 286 (150-400) 10^3/uL Neut % (Auto) 79.2 (35-85) % Lymph % (Auto) 11.8 (10-55) % [place] % (Auto) 7.7 (0-16) % Eos % (Auto) 1.1 (0-5) % Baso % (Auto) 0.2 (0-3) % Neut # (Auto) 9.76 H (1.80-7.00) 10^3/uL Lymph # (Auto) 1.46 (1.00-4.80) 10^3/uL [place] # (Auto) 0.95 H (0.00-0.80) 10^3/uL Eos # (Auto) 0.14 (0.00-0.45) 10^3/uL Baso # (Auto) 0.03 10^3/uL Sodium 145 (136-145) mEq/L Potassium 3.8 (3.5-5.0) mEq/L Chloride 102 (98-106) mEq/L Carbon Dioxide 29 (21-32) mmol/L BUN 10 (7-18) mg/dL Creatinine 0.8 (0.6-1.0) mg/dL Est Cr Clr Drug Dosing 73.09 mL/min Estimated GFR (MDRD) > 60 (>=60) mL/min Glucose 157 H D (75-99) mg/dL Lactic Acid 2.8 H (0.4-2.0) mmol/L Calcium 9.6 (8.4-10.1) mg/dL Total Bilirubin 0.3 (0.0-1.0) mg/dL AST 18 (15-37) U/L ALT 20 (12-78) U/L Alkaline Phosphatase 92 (46-116) U/L C-Reactive Protein 0.3 (0.2-0.8) mg/dL Total Protein 7.9 (6.4-8.2) g/dL Albumin 4.1 (3.4-5.0) g/dL Amylase 72 (25-115) U/L Lipase 136 (73-393) U/L Urine Color (YELLOW) Urine Appearance (CLEAR) Urine pH (4.5-8.0) Ur Specific [place] (1.003-1.020) Urine Protein (NEGATIVE) mg/dL Urine Glucose (UA) (NEGATIVE) mg/dL Urine Ketones (NEGATIVE) mg/dL Urine Occult Blood (NEGATIVE) Urine Nitrite (NEGATIVE) Urine Bilirubin (NEGATIVE) Urine Urobilinogen (0.2-1.0) EU/dL Ur Leukocyte Esterase (NEGATIVE) Urine RBC (0-5) /HPF Urine WBC (0-5) /HPF Ur Epithelial Cells (NOT SEEN) /HPF Calcium Oxalate Crystal (NOT SEEN) /HPF Urine Bacteria (NOT SEEN) /HPF 08/24/19 08/24/19 08/24/19 Range/Units 06:55 06:55 06:55 WBC 6.1 (5.0-10.0) 10^3/uL RBC 4.27 (4.00-5.50) 10^6/uL Hgb 13.3 (12.0-16.0) g/dL Hct 40.9 (37.0-47.0) % MCV 95.8 H (82.0-94.0) fL MCH 31.1 (27.0-32.0) pg MCHC 32.5 L (33.0-38.0) g/dL RDW Coeff of Estefanía 12.2 (11.0-15.0) % Plt Count 202 (150-400) 10^3/uL Neut % (Auto) 74.3 (35-85) % Lymph % (Auto) 14.5 (10-55) % [place] % (Auto) 10.6 (0-16) % Eos % (Auto) 0.3 (0-5) % Baso % (Auto) 0.3 (0-3) % Neut # (Auto) 4.49 (1.80-7.00) 10^3/uL Lymph # (Auto) 0.88 L (1.00-4.80) 10^3/uL [place] # (Auto) 0.64 (0.00-0.80) 10^3/uL Eos # (Auto) 0.02 (0.00-0.45) 10^3/uL Baso # (Auto) 0.02 10^3/uL Sodium 147 H (136-145) mEq/L Potassium 3.8 (3.5-5.0) mEq/L Chloride 110 H (98-106) mEq/L Carbon Dioxide 32 (21-32) mmol/L BUN 11 (7-18) mg/dL Creatinine 0.7 (0.6-1.0) mg/dL Est Cr Clr Drug Dosing 80.58 mL/min Estimated GFR (MDRD) > 60 (>=60) mL/min Glucose 120 H (75-99) mg/dL Lactic Acid 1.8 (0.4-2.0) mmol/L Calcium 8.1 L (8.4-10.1) mg/dL Total Bilirubin 0.3 (0.0-1.0) mg/dL AST 14 L (15-37) U/L ALT 15 (12-78) U/L Alkaline Phosphatase 65 (46-116) U/L C-Reactive Protein (0.2-0.8) mg/dL Total Protein 5.9 L (6.4-8.2) g/dL Albumin 3.0 L (3.4-5.0) g/dL Amylase (25-115) U/L Lipase (73-393) U/L Urine Color (YELLOW) Urine Appearance (CLEAR) Urine pH (4.5-8.0) Ur Specific [place] (1.003-1.020) Urine Protein (NEGATIVE) mg/dL Urine Glucose (UA) (NEGATIVE) mg/dL Urine Ketones (NEGATIVE) mg/dL Urine Occult Blood (NEGATIVE) Urine Nitrite (NEGATIVE) Urine Bilirubin (NEGATIVE) Urine Urobilinogen (0.2-1.0) EU/dL Ur Leukocyte Esterase (NEGATIVE) Urine RBC (0-5) /HPF Urine WBC (0-5) /HPF Ur Epithelial Cells (NOT SEEN) /HPF Calcium Oxalate Crystal (NOT SEEN) /HPF Urine Bacteria (NOT SEEN) /HPF // Range/Units 07:26 WBC (5.0-10.0) 10^3/uL RBC (4.00-5.50) 10^6/uL Hgb (12.0-16.0) g/dL Hct (37.0-47.0) % MCV (82.0-94.0) fL MCH (27.0-32.0) pg MCHC (33.0-38.0) g/dL RDW Coeff of Estefanía (11.0-15.0) % Plt Count (150-400) 10^3/uL Neut % (Auto) (35-85) % Lymph % (Auto) (10-55) % [place] % (Auto) (0-16) % Eos % (Auto) (0-5) % Baso % (Auto) (0-3) % Neut # (Auto) (1.80-7.00) 10^3/uL Lymph # (Auto) (1.00-4.80) 10^3/uL [place] # (Auto) (0.00-0.80) 10^3/uL Eos # (Auto) (0.00-0.45) 10^3/uL Baso # (Auto) 10^3/uL Sodium (136-145) mEq/L Potassium (3.5-5.0) mEq/L Chloride (98-106) mEq/L Carbon Dioxide (21-32) mmol/L BUN (7-18) mg/dL Creatinine (0.6-1.0) mg/dL Est Cr Clr Drug Dosing mL/min Estimated GFR (MDRD) (>=60) mL/min Glucose (75-99) mg/dL Lactic Acid (0.4-2.0) mmol/L Calcium (8.4-10.1) mg/dL Total Bilirubin (0.0-1.0) mg/dL AST (15-37) U/L ALT (12-78) U/L Alkaline Phosphatase (46-116) U/L C-Reactive Protein (0.2-0.8) mg/dL Total Protein (6.4-8.2) g/dL Albumin (3.4-5.0) g/dL Amylase (25-115) U/L Lipase (73-393) U/L Urine Color Kristina (YELLOW) Urine Appearance Cloudy (CLEAR) Urine pH 6.0 (4.5-8.0) Ur Specific [place] >= 1.030 H (1.003-1.020) Urine Protein Trace H (NEGATIVE) mg/dL Urine Glucose (UA) Negative (NEGATIVE) mg/dL Urine Ketones Trace H (NEGATIVE) mg/dL Urine Occult Blood Negative (NEGATIVE) Urine Nitrite Negative (NEGATIVE) Urine Bilirubin Negative (NEGATIVE) Urine Urobilinogen 0.2 (0.2-1.0) EU/dL Ur Leukocyte Esterase Trace H (NEGATIVE) Urine RBC Not seen (0-5) /HPF Urine WBC 40-50 H (0-5) /HPF Ur Epithelial Cells Moderate H (NOT SEEN) /HPF Calcium Oxalate Crystal Many H (NOT SEEN) /HPF Urine Bacteria Many H (NOT SEEN) /HPF Arsalan Results Last 24 Hours: Microbiology 08/24/19 07:45 Gastric Occult Blood - Final Gastric Fluid NEGATIVE OCCULT BLOOD REFERENCE RANGE: NEGATIVE 08/24/19 07:45 Occult Blood - Final Stool / Feces Med Orders - Current: Current Medications Albuterol (Ventolin Hfa) 0 gm INH Q4H PRN PRN Reason: Wheezing Albuterol/Ipratropium (Duoneb 3.0-0.5 Mg/3 Ml) 3 ml INH QIDRT [facility] Last Admin: 08/24/19 09:41 Dose: 3 ml Documented by: Cyanocobalamin (Vitamin B12) 1,000 mcg IM Q30D [facility] Enoxaparin Sodium (Lovenox) 40 mg SUBCUT Q24H [facility] Gabapentin (Neurontin) 600 mg PO 0900,1200 [facility] Last Admin: 08/24/19 09:40 Dose: 600 mg Documented by: Gabapentin (Neurontin) 900 mg PO BEDTIME [facility] Sodium Chloride (Normal Saline) 1,000 mls @ 100 mls/hr IV ASDIRECTED [facility] Last Admin: 08/24/19 01:23 Dose: 100 mls/hr Documented by: Metoclopramide HCl (Reglan) 10 mg IVPUSH Q8H [facility] Last Admin: 08/24/19 09:44 Dose: 10 mg Documented by: Mirtazapine (Remeron) 15 mg PO BEDTIME [facility] Ondansetron HCl (Zofran Odt) 4 mg PO Q6H PRN PRN Reason: nausea, able to take PO Last Admin: 08/24/19 05:56 Dose: 4 mg Documented by: Pantoprazole Sodium (Protonix Iv) 40 mg IVPUSH Q12H [facility] Last Admin: 08/24/19 08:09 Dose: 40 mg Documented by: Ropinirole HCl (Requip) 1 mg PO BEDTIME [facility] Sucralfate (Carafate) 1 gm PO QID [facility] Last Admin: 08/24/19 09:40 Dose: 1 gm Documented by: Discontinued Medications Enoxaparin Sodium (Lovenox) 40 mg SUBCUT ONETIME ONE Stop: 08/24/19 01:01 Last Admin: 08/24/19 01:26 Dose: 40 mg Documented by: Sodium Chloride (Normal Saline) 1,000 mls @ 100 mls/hr IV ASDIRECTED [facility] Last Admin: 08/23/19 23:31 Dose: 100 mls/hr Documented by: Iopamidol (Isovue-370 (76%)) 100 ml IVPUSH ONETIME ONE Stop: 08/24/19 08:02 Last Admin: 08/24/19 08:39 Dose: 100 ml Documented by: Non-Formulary Medication (Lorazepam [Lorazepam]) 1 mg PO BEDTIME JASMEET Ondansetron HCl (Zofran) 4 mg IVPUSH ONETIME ONE Stop: 08/23/19 23:21 Last Admin: 08/23/19 23:33 Dose: 4 mg Documented by: Pantoprazole Sodium (Protonix Iv) 40 mg IVPUSH ONETIME ONE Stop: 08/23/19 23:21 Last Admin: 08/23/19 23:40 Dose: 40 mg Documented by: - Exam Quality Assessment: Supplemental Oxygen (2L NC) General: Alert, Oriented, Cooperative Neck: Supple Lungs: Clear to Auscultation, Normal Respiratory Effort Cardiovascular: Regular Rate, Regular Rhythm GI/Abdominal Exam: Soft, No Distention, No Abnormal Bruit. No: Non-Tender (epigastric tenderness with palpation ) Back Exam: Normal Inspection, Full Range of Motion Extremities: Normal Inspection, Normal Range of Motion, Non-Tender, Normal Capillary Refill. No: Pedal Edema, Rosalino's Sign Peripheral Pulses: 2+: Radial (L), Radial (R) Skin: Warm, Dry, Intact Neurological: No New Focal Deficit Psy/Mental Status: Alert, Normal Affect, Normal Mood Sepsis Event Note - Evaluation Sepsis Screening Result: No Definite Risk - Focused Exam Vital Signs: Vital Signs Temp Pulse Resp BP BP Pulse Ox Pulse Ox 08/24/19 08:00 36.8 C 116 H 20 139/91 H 95 08/24/19 04:00 36.7 C 94 18 106/71 96 08/24/19 00:51 37.4 C 96 20 109/72 95 95 08/23/19 23:00 36.6 C 126 H 20 133/97 H 96 Date Exam was Performed: 08/24/19 Time Exam was Performed: 10:34 - Problem List & Annotations (1) Abdominal pain SNOMED Code(s): 06765778 Code(s): R10.9 - UNSPECIFIED ABDOMINAL PAIN Status: Acute Priority: High Current Visit: Yes Qualifiers: Abdominal location: epigastric Qualified Code(s): R10.13 - Epigastric pain (2) Lactic acidosis SNOMED Code(s): 55567782 Code(s): E87.2 - ACIDOSIS Status: Acute Priority: High Current Visit: Yes (3) Nausea & vomiting SNOMED Code(s): 11384231 Code(s): R11.2 - NAUSEA WITH VOMITING, UNSPECIFIED Status: Acute Priority: Medium Current Visit: Yes Qualifiers: Vomiting type: bilious vomiting Qualified Code(s): R11.14 - Bilious vomiting (4) Tachycardia SNOMED Code(s): 0075463 Code(s): R00.0 - TACHYCARDIA, UNSPECIFIED Status: Acute Priority: Medium Current Visit: Yes - Problem List Review Problem List Initiated/Reviewed/Updated: Yes - My Orders Last 24 Hours: My Active Orders 08/24/19 00:09 Resuscitation Status Routine 08/24/19 00:51 Cyanocobalamin (Vitamin B12) [Vitamin B12] 1,000 mcg IM Q30D Ondansetron [Zofran ODT] 4 mg PO Q6H PRN Sodium Chloride 0.9% [Normal Saline] 1,000 ml IV ASDIRECTED Sucralfate [Carafate] 1 gm PO QID 08/24/19 00:51 Patient Status [ADT] Routine Intake and Output [RC] 0600,1800 Oxygen Therapy [RC] 2355 Up ad Jaqueline [RC] .PRN Vital Signs [RC] 0000,0400,0800,1200,1600,2000 Abdomen Pelvis w Cont [CT] Stat 08/24/19 01:18 Albuterol [Ventolin HFA] 0 gm INH Q4H PRN 08/24/19 07:26 CULTURE URINE [RM] Stat 08/24/19 Breakfast Nothing per Oral Now Diet [DIET] Albuterol/Ipratropium [DuoNeb 3.0-0.5 MG/3 ML] 3 ml INH QIDRT 08/24/19 09:00 Gabapentin [Neurontin] 600 mg PO 0900,1200 Pantoprazole [ProTONIX IV] 40 mg IVPUSH Q12H 08/24/19 09:30 Metoclopramide [Reglan] 10 mg IVPUSH Q8H 08/24/19 20:00 Gabapentin [Neurontin] 900 mg PO BEDTIME Mirtazapine [Remeron] 15 mg PO BEDTIME rOPINIRole [Requip] 1 mg PO BEDTIME 08/24/19 21:00 Enoxaparin [Lovenox] 40 mg SUBCUT Q24H - Plan Plan:: 08/24/[address] has been read and shows enteritis, seen the report for details, the pt still c/o nausea, vomiting has decreased, added Reglan to her list of medications. will start clear liquids and advance as tolerated. if she continues to improve will plan on dc in am
[2019-08-24] MEDS ORDERED: Albuterol/Ipratropium 3.0-0.5 MG/3 ML Neb Soln NEB PRN (14:04)
[2019-08-24] MEDS ORDERED: rOPINIRole 1 MG Tab PO SCH (20:00)
[2019-08-24] MEDS ORDERED: Gabapentin 300 MG Cap PO SCH (20:00)
[2019-08-24] MEDS ORDERED: Mirtazapine 15 MG Tab PO SCH (20:00)
[2019-08-24] MEDS ORDERED: Enoxaparin 40 MG/0.4 ML Syringe SUBCUT SCH (21:00)
[2019-08-25] MEDS: Metoclopramide 10 MG/2 ML SDV IVPUSH SCH ×2 (00:58→08:30)
[2019-08-25] MEDS: Pantoprazole 40 MG Vial IVPUSH SCH (08:23)
[2019-08-25] MEDS: Gabapentin 300 MG Cap PO SCH (08:23)
[2019-08-25] MEDS: Sucralfate 1 GM Tab PO SCH (08:23)
[2019-08-25 09:01] VITALS: BP 109/69; PULSE 70
--- NOTE | 2019-08-25 15:38 | PCM.DCSUM1 ---
Discharge Summary - Hospital Course Free Text/Narrative:: Saranya is a 54 year old female who presented to the ER with complaints of epigastric pain with nausea and vomiting. Has recurring issues with this. has had previous ultrasound, HIDA scan and EGD without positive findings. Denied any changes in breathing, does wear oxygen at home. Patient felt her vomiting was undigested food. No melena or hematochezia, no coffee ground appearance to emesis. No fevers. Labs done in the ER were essentially negative. CT scan of the abdomen was done, noted enteritis. Admitted for IV fluids, nausea meds. Diagnosis: Stroke: No Modified [place] Scale: No Symptoms at All Modified [place] Scale Score: 0 - Discharge Data Discharge Date: 08/25/19 Discharge Disposition: Home, Self-Care 01 Condition: Good - Referral to Home Health Primary Care Physician: PCP None - Discharge Diagnosis/Problem(s) (1) Abdominal pain SNOMED Code(s): 10661482 ICD Code: R10.9 - UNSPECIFIED ABDOMINAL PAIN Status: Acute Priority: High Qualifiers: Abdominal location: epigastric Qualified Code(s): R10.13 - Epigastric pain (2) Lactic acidosis SNOMED Code(s): 31277964 ICD Code: E87.2 - ACIDOSIS Status: Acute Priority: High (3) Nausea & vomiting SNOMED Code(s): 62625435 ICD Code: R11.2 - NAUSEA WITH VOMITING, UNSPECIFIED Status: Acute Priority: High Qualifiers: Vomiting type: bilious vomiting Qualified Code(s): R11.14 - Bilious vo miting - Patient Summary/Data Complications: none Hospital Course: Patient is doing well this am. She did have persistent nausea and anorexia and ultimately was started on Reglan. Was able to take clear liquids last night and toast and tolerated well. She has these bouts off an on, at least weekly at home. Occasionally is able to control the nausea with Zofran at home but has been hospitalized now several times for this. Was set up to see GI on 2 occasions but did not go to these appointments as states difficult to find a ride. Did reschedule for November now but is wondering if she could get in sooner in [place] as her sister "knows her way around there better". WBC is improving, now 12.3. Lactic acid was high on admit at 2.8, 1.8 this am. CRP negative. Hemocult, gastocult were negative. Will discharge home on Zofran, Reglan. Arrange for referral to GI in [place]. Follow up for recheck in 2 weeks. - Patient Instructions Diet: Usual Diet as Tolerated Activity: As Tolerated - Discharge Plan *PRESCRIPTION DRUG MONITORING PROGRAM REVIEWED*: Not Applicable *COPY OF PRESCRIPTION DRUG MONITORING REPORT IN PATIENT KAREN: Not Applicable Prescriptions/Med Rec: Metoclopramide HCl [Reglan] 5 mg PO QID #120 tablet Ondansetron [Zofran ODT] 4 mg PO Q6H PRN #30 tab.dis PRN Reason: nausea, able to take PO Home Medications: Home Meds Gabapentin 600 mg PO ASDIRECTED 03/02/14 [History] Cyanocobalamin (Vitamin B12) [Vitamin B12] 1,000 mcg IM Q30D 05/01/14 [History] Albuterol Sulfate [Proair Hfa] 2 puff INH Q4HR PRN 08/12/15 [History] Pantoprazole Sodium [Protonix] 40 mg PO DAILY 09/10/18 [History] Sucralfate 1 gm PO QID PRN 09/10/18 [History] Umeclidinium Brm/Vilanterol Tr [Anoro Ellipta 62.5-25 MCG] 1 puff IH DAILY 09/10/18 [History] rOPINIRole [Requip] 1 mg PO BEDTIME 09/10/18 [History] Mirtazapine 15 mg PO BEDTIME 08/24/19 [History] Metoclopramide HCl [Reglan] 5 mg PO QID #120 tablet 08/25/19 [Rx] Ondansetron [Zofran ODT] 4 mg PO Q6H PRN #30 tab.dis 08/25/19 [Rx] Forms: ED Department Discharge Referrals: Mavis Shine PA [ED Midlevel Provider] - (Follow up with Ana Maria in 2 weeks for recheck) - Discharge Summary/Plan Comment DC Time >30 min.: No - General Info Date of Service: 08/25/19 Admission Dx/Problem (Free Text: abd pain with N and lactic acidosis Functional Status: Reports: Pain Controlled, Tolerating Diet, Ambulating - Review of Systems General: Denies: Malaise HEENT: Reports: No Symptoms Pulmonary: Denies: Shortness of Breath, Cough Cardiovascular: Denies: Chest Pain, Edema, Lightheadedness Gastrointestinal: Denies: Abdominal Pain, Nausea, Vomiting Genitourinary: Reports: No Symptoms Musculoskeletal: Reports: No Symptoms Skin: Reports: No Symptoms Neurological: Reports: No Symptoms Psychiatric: Reports: No Symptoms - Patient Data Vitals - Most Recent: Last Vital Signs Temp 98.3 F 08/25/19 08:00 Pulse 70 08/25/19 08:00 Resp 16 08/25/19 08:00 BP 109/69 08/25/19 08:00 Pulse Ox 98 08/25/19 08:00 Weight - Most Recent: 125 lb 6.4 oz I&O - Last 24 hours: Intake & Output 08/25/19 08/25/19 08/25/19 06:59 14:59 22:59 Intake Total 100 Output Total 400 Balance -300 PRECIOUS Results - Last 24 hrs: Microbiology 08/24/19 07:26 Urine Culture - Preliminary Urine, Voided Gram Positive Cocci Med Orders - Current: Current Medications Discontinued Medications Albuterol (Ventolin Hfa) 0 gm INH Q4H PRN PRN Reason: Wheezing Albuterol/Ipratropium (Duoneb 3.0-0.5 Mg/3 Ml) 3 ml INH QIDRT [facility] Last Admin: 08/24/19 12:22 Dose: Not Given Documented by: Albuterol/Ipratropium (Duoneb 3.0-0.5 Mg/3 Ml) 3 ml NEB Q4H PRN PRN Reason: Dyspnea Cyanocobalamin (Vitamin B12) 1,000 mcg IM Q30D [facility] Enoxaparin Sodium (Lovenox) 40 mg SUBCUT Q24H [facility] Last Admin: 08/24/19 20:12 Dose: 40 mg Documented by: Enoxaparin Sodium (Lovenox) 40 mg SUBCUT ONETIME ONE Stop: 08/24/19 01:01 Last Admin: 08/24/19 01:26 Dose: 40 mg Documented by: Gabapentin (Neurontin) 600 mg PO 0900,1200 [facility] Last Admin: 08/25/19 08:23 Dose: 600 mg Documented by: Gabapentin (Neurontin) 900 mg PO BEDTIME [facility] Last Admin: 08/24/19 19:37 Dose: 900 mg Documented by: Sodium Chloride (Normal Saline) 1,000 mls @ 100 mls/hr IV ASDIRECTED [facility] Last Admin: 08/23/19 23:31 Dose: 100 mls/hr Documented by: Sodium Chloride (Normal Saline) 1,000 mls @ 100 mls/hr IV ASDIRECTED JASME[facility] Last Admin: 08/24/19 21:33 Dose: 100 mls/hr Documented by: Iopamidol (Isovue-370 (76%)) 100 ml IVPUSH ONETIME ONE Stop: 08/24/19 08:02 Last Admin: 08/24/19 08:39 Dose: 100 ml Documented by: Metoclopramide HCl (Reglan) 10 mg IVPUSH Q8H [facility] Last Admin: 08/25/19 08:30 Dose: 10 mg Documented by: Mirtazapine (Remeron) 15 mg PO BEDTIME [facility] Last Admin: 08/24/19 19:37 Dose: 15 mg Documented by: Non-Formulary Medication (Lorazepam [Lorazepam]) 1 mg PO BEDTIME [facility] Ondansetron HCl (Zofran) 4 mg IVPUSH ONETIME ONE Stop: 08/23/19 23:21 Last Admin: 08/23/19 23:33 Dose: 4 mg Documented by: Ondansetron HCl (Zofran Odt) 4 mg PO Q6H PRN PRN Reason: nausea, able to take PO Last Admin: 08/24/19 05:56 Dose: 4 mg Documented by: Pantoprazole Sodium (Protonix Iv) 40 mg IVPUSH ONETIME ONE Stop: 08/23/19 23:21 Last Admin: 08/23/19 23:40 Dose: 40 mg Documented by: Pantoprazole Sodium (Protonix Iv) 40 mg IVPUSH Q12H [facility] Last Admin: 08/25/19 08:23 Dose: 40 mg Documented by: Ropinirole HCl (Requip) 1 mg PO BEDTIME [facility] Last Admin: 08/24/19 19:40 Dose: 1 mg Documented by: Sucralfate (Carafate) 1 gm PO QID [facility] Last Admin: 08/25/19 08:23 Dose: 1 gm Documented by: - Exam General: Reports: Alert, Oriented HEENT: Reports: Mucous Membr. Moist/[place] Neck: Reports: Supple Lungs: Reports: Clear to Auscultation, Normal Respiratory Effort Cardiovascular: Reports: Regular Rate, Regular Rhythm GI/Abdominal Exam: Normal Bowel Sounds, Soft, Non-Tender Extremities: Normal Inspection, No Pedal Edema Skin: Reports: Warm, Dry Neurological: Reports: No New Focal Deficit
== END 2019-08-25 10:28 | disposition home or self-care (01) ==
LOC: CC.ED 23:00 → CC.MS 08-24 00:06 → UNDOADMOB 08-24 00:15
PROVIDERS: ADMIT Nurse Practitioner; ATTEND Family Medicine
DX: R10.13 Epigastric pain (principal); R11.2 Nausea with vomiting, unspecified; E87.2 Acidosis; J44.9 Chronic obstructive pulmonary disease, unspecified; K21.9 Gastro-esophageal reflux disease without esophagitis; F41.9 Anxiety disorder, unspecified; G62.9 Polyneuropathy, unspecified; F32.9 Major depressive disorder, single episode, unspecified; R00.0 Tachycardia, unspecified; Z79.899 Other long term (current) drug therapy; Z79.51 Long term (current) use of inhaled steroids; Z90.89 Acquired absence of other organs; Z87.891 Personal history of nicotine dependence
CPT/HCPCS: 36415; 74177; 80053; 81001; 82150; 82270; 82271; 83605; 83690; 85025; 86140; 87086; 87088; 87186; 94640; 96361; 96372; 96374; 96375; 96376; 99284-25; A9270-GY; C9113; G0378; J1650; J2405; J2765; J7030; J7620-GY; Q9967

== ENCOUNTER 2019-12-30 10:24 | Emergency (ER) | payer MEDICAID ==
[2019-12-30 11:39] LABS: CHLORIDE,CL 104 mEq/L (98-106); SODIUM,NA 143 mEq/L (136-145)
[2019-12-30 11:47] LABS: PTT,PARTIAL THROMBOPLSTIN TIME 22.2 SEC (23.2-32.3)
[2019-12-30 12:40] VITALS: BP 119/80; PULSE 76
--- NOTE | 2020-01-02 08:23 | EDM.PDOC ---
ED HPI GENERAL MEDICAL PROBLEM - General Chief Complaint: Chest Pain Stated Complaint: chest pain, SOB Time Seen by Provider: 12/30/19 10:40 Source of Information: Reports: Patient History Limitations: Reports: No Limitations - History of Present Illness INITIAL COMMENTS - FREE TEXT/NARRATIVE: Saranya is a 54 yo female who presents to the ED with c/o increased SOB, chest pain and cough. Reports started last evening around 0. Patient states she started having chest tightness that would radiate across chest area, up into bilateral shoulders and to upper back area that was a dull,aching tightness with pain of 5/10 that would also radiate up into right jaw area. Patient states at this time she does not have much chest tightness, but can feel that something is still there. Has had diarrhea x2 days. Also states that she feels like she has indigestion at times. Denies any N/V, cough, or fevers at this time. Onset Date: 12/29/19 Onset Time: 21:30 Duration: Improving Location: Reports: Chest Quality: Reports: Ache Severity: Moderate Associated Symptoms: Reports: Chest Pain, Cough, cough w sputum, Malaise - Related Data Allergies Allergy/AdvReac Type Severity Reaction Status Date / Time No Known Allergies Allergy Verified 12/30/19 10:59 Home Meds: Home Meds Gabapentin 600 mg PO ASDIRECTED 03/02/14 [History] Cyanocobalamin (Vitamin B12) [Vitamin B12] 1,000 mcg IM Q30D 05/01/14 [History] Albuterol Sulfate [Proair Hfa] 2 puff INH Q4HR PRN 08/12/15 [History] Pantoprazole Sodium [Protonix] 40 mg PO DAILY 09/10/18 [History] Sucralfate 1 gm PO QID PRN 09/10/18 [History] Umeclidinium Brm/Vilanterol Tr [Anoro Ellipta 62.5-25 MCG] 1 puff IH DAILY 09/10/18 [History] rOPINIRole [Requip] 1 mg PO BEDTIME 09/10/18 [History] Mirtazapine 15 mg PO BEDTIME 08/24/19 [History] Ondansetron [Zofran ODT] 4 mg PO Q6H PRN #30 tab.dis 08/25/19 [Rx] LORazepam [Ativan] 1 mg PO BEDTIME 12/30/19 [History] dexAMETHasone [Dexamethasone] 6 mg PO DAILY 10 Days #10 tab 12/30/19 [Rx] Past Medical History HEENT History: Reports: Impaired Vision Other HEENT History: broke her glasses recently, hard to read without them Cardiovascular History: Reports: SOB on Exertion Respiratory History: Reports: Bronchitis, Recurrent, COPD, Pneumonia, Recurrent, Pneumothorax, SOB Other Respiratory History: Goal: to increase her activity with less SOB; says she gets SOB when trying to clean her house; was working as a [employer] and then j[employer] worker, 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 Rice in July Gastrointestinal History: Reports: GERD Other Gastrointestinal History: says her appetite is good Genitourinary History: Reports: None SOIL SCIENTIST History: Reports: , Other (See Below) Other SOIL SCIENTIST History: Adenocarcinoma of cervix; says some of her SOB and weakness has been since her cancer Musculoskeletal History: Reports: Other (See Below) Other Musculoskeletal History: leg nerve pain. Neurological History: Reports: Neuropathy, Peripheral Other Neuro History: B12 deficiency per history, headaches Psychiatric History: Reports: Anxiety, Depression Hematologic History: Reports: Anemia Oncologic (Cancer) History: Reports: Cervix Other Oncologic History: cervical cancer - Past Surgical History Cardiovascular Surgical History: Reports: None Respiratory Surgical History: Reports: Pneumonectomy Other Respiratory Surgeries/Procedures: hx of chest tube about 30 yrs ago GI Surgical History: Reports: Appendectomy Female Surgical History: Reports: Hysterectomy Musculoskeletal Surgical History: Reports: Other (See Below) Other Musculoskeletal Surgeries/Procedures:: peripheral neuropathy, nerve damage to her legs and arms Social & Family History - Family History Family Medical History: No Pertinent Family History Cardiac: Reports: Hypertension - Tobacco Use Tobacco Use Status *Q: Former Tobacco User Used Tobacco, but Quit: Yes Month/Year Tobacco Last Used: 30 - Caffeine Use Caffeine Use: Reports: Coffee - Recreational Drug Use Recreational Drug Use: No ED ROS GENERAL - Review of Systems Review Of Systems: Comprehensive ROS is negative, except as noted in HPI. ED EXAM, GENERAL - Physical Exam Exam: See Below Exam Limited By: No Limitations General Appearance: Alert, WD/WN, No Apparent Distress Eye Exam: Bilateral Eye: EOMI, PERRL Nose: Normal Inspection, Normal Mucosa, No Blood Throat/Mouth: Normal Inspection, Normal Lips, Normal Teeth, Normal Gums, Normal Oropharynx, Normal Voice, No Airway Compromise Head: Atraumatic, Normocephalic Neck: Normal Inspection, Supple, Non-Tender, Full Range of Motion Respiratory/Chest: No Respiratory Distress, Lungs Clear, No Accessory Muscle Use, Chest Non-Tender, Decreased Breath Sounds Cardiovascular: Normal Peripheral Pulses, Regular Rate, Rhythm, No Edema, No Gallop, No JVD, No Murmur, No Rub GI/Abdominal: Normal Bowel Sounds, Soft, Non-Tender, No Organomegaly, No Distention, No Abnormal Bruit, No Mass Extremities: Normal Inspection, Normal Range of Motion, Non-Tender, Normal Capillary Refill, No Pedal Edema Neurological: Alert, Oriented, CN II-XII Intact, Normal Cognition, Normal Gait, Normal Reflexes, No Motor/Sensory Deficits Psychiatric: Flat Affect Skin Exam: Warm, Dry, Intact, Normal Color, No Rash Lymphatic: No Adenopathy Course - Vital Signs Last Recorded V/S: Last Vital Signs Temp 98.2 F 12/30/19 12:15 Pulse 76 12/30/19 12:15 Resp 21 H 12/30/19 12:15 BP 119/80 12/30/19 12:15 Pulse Ox 99 12/30/19 12:15 - Orders/Labs/Meds Labs: Laboratory Tests 12/30/19 12/30/19 12/30/19 Range/Units 10:30 11:12 11:12 WBC 3.5 L (5.0-10.0) 10^3/uL RBC 4.13 (4.00-5.50) 10^6/uL Hgb 12.8 (12.0-16.0) g/dL Hct 40.0 (37.0-47.0) % MCV 96.9 H (82.0-94.0) fL MCH 31.0 (27.0-32.0) pg MCHC 32.0 L (33.0-38.0) g/dL RDW Coeff of Estefanía 12.3 (11.0-15.0) % Plt Count 278 (150-400) 10^3/uL Neut % (Auto) 63.1 (35-85) % Lymph % (Auto) 19.0 (10-55) % [place] % (Auto) 15.6 (0-16) % Eos % (Auto) 1.7 (0-5) % Baso % (Auto) 0.6 (0-3) % Neut # (Auto) 2.22 (1.80-7.00) 10^3/uL Lymph # (Auto) 0.67 L (1.00-4.80) 10^3/uL [place] # (Auto) 0.55 (0.00-0.80) 10^3/uL Eos # (Auto) 0.06 (0.00-0.45) 10^3/uL Baso # (Auto) 0.02 10^3/uL PT 9.9 (9.7-12.3) SEC INR 0.98 (0.92-1.18) APTT 22.2 L (23.2-32.3) SEC Sodium (136-145) mEq/L Potassium (3.5-5.0) mEq/L Chloride (98-106) mEq/L Carbon Dioxide (21-32) mmol/L BUN (7-18) mg/dL Creatinine (0.6-1.0) mg/dL Est Cr Clr Drug Dosing mL/min Estimated GFR (MDRD) (>=60) mL/min Glucose (75-99) mg/dL Calcium (8.4-10.1) mg/dL Total Bilirubin (0.0-1.0) mg/dL AST (15-37) U/L ALT (12-78) U/L Alkaline Phosphatase (46-116) U/L Lactate Dehydrogenase (100-190) U/L Creatine Kinase (21-215) U/L Troponin I (0.00-0.06) ng/mL Total Protein (6.4-8.2) g/dL Albumin (3.4-5.0) g/dL Lipase (73-393) U/L SARS CoV-2 RNA Rapid ALVARO Negative (NEGATIVE) 12/30/19 Range/Units 11:12 WBC (5.0-10.0) 10^3/uL RBC (4.00-5.50) 10^6/uL Hgb (12.0-16.0) g/dL Hct (37.0-47.0) % MCV (82.0-94.0) fL MCH (27.0-32.0) pg MCHC (33.0-38.0) g/dL RDW Coeff of Estefanía (11.0-15.0) % Plt Count (150-400) 10^3/uL Neut % (Auto) (35-85) % Lymph % (Auto) (10-55) % [place] % (Auto) (0-16) % Eos % (Auto) (0-5) % Baso % (Auto) (0-3) % Neut # (Auto) (1.80-7.00) 10^3/uL Lymph # (Auto) (1.00-4.80) 10^3/uL [place] # (Auto) (0.00-0.80) 10^3/uL Eos # (Auto) (0.00-0.45) 10^3/uL Baso # (Auto) 10^3/uL PT (9.7-12.3) SEC INR (0.92-1.18) APTT (23.2-32.3) SEC Sodium 143 (136-145) mEq/L Potassium 3.8 (3.5-5.0) mEq/L Chloride 104 (98-106) mEq/L Carbon Dioxide 33 H (21-32) mmol/L BUN 8 (7-18) mg/dL Creatinine 0.5 L (0.6-1.0) mg/dL Est Cr Clr Drug Dosing 112.45 mL/min Estimated GFR (MDRD) > 60 (>=60) mL/min Glucose 101 H (75-99) mg/dL Calcium 8.8 (8.4-10.1) mg/dL Total Bilirubin 0.2 (0.0-1.0) mg/dL AST 17 (15-37) U/L ALT 20 (12-78) U/L Alkaline Phosphatase 83 (46-116) U/L Lactate Dehydrogenase 147 (100-190) U/L Creatine Kinase 36 (21-215) U/L Troponin I < 0.017 (0.00-0.06) ng/mL Total Protein 7.1 (6.4-8.2) g/dL Albumin 3.4 (3.4-5.0) g/dL Lipase 127 (73-393) U/L SARS CoV-2 RNA Rapid ALVARO (NEGATIVE) Departure - Departure Time of Disposition: 13:10 Disposition: Home, Self-Care 01 Clinical Impression: Bronchitis, COPD (chronic obstructive pulmonary disease) - Discharge Information Prescriptions: dexAMETHasone [Dexamethasone] 6 mg PO DAILY 10 Days #10 tab Instructions: Viral Respiratory Infection, [id number], Chronic Bronchitis, Adult Referrals: Mavis Shine PA [Primary Care Provider] - Forms: ED Department Discharge Additional Instructions: - Rapid Covid test is negative but blood counts are concerning for viral infection - Rest and push fluids - Dexamethasone 6 mg daily x 10 days - Recommend quarantine until symptoms improve - We will notify you of Covid results from state lab once available - Tylenol or ibuprofen as needed for pain - Continue to monitor oxygen saturation and titrate oxygen to maintain O2 sats > 92% - Follow up for any difficulty breathing or worsening symptoms Sepsis Event Note (ED) - Evaluation Sepsis Screening Result: No Definite Risk - Problem List & Annotations (1) Viral bronchitis SNOMED Code(s): 78770718 Code(s): J20.8 - ACUTE BRONCHITIS DUE TO OTHER SPECIFIED ORGANISMS Status: Acute (2) COPD (chronic obstructive pulmonary disease) SNOMED Code(s): 80189885 Code(s): J44.9 - CHRONIC OBSTRUCTIVE PULMONARY DISEASE, UNSPECIFIED Status: Chronic Qualifiers: - Assessment/Plan Assessment:: Viral Bronchitis COPD Plan: As above. Rapid covid negative. Given chronic hypoxia, will treat with steroids. Follow up for any worsening shortness of breath or respiratory distress.
== END 2019-12-30 13:05 | disposition home or self-care (01) ==
LOC: CC.ED 10:24
DX: J44.9 Chronic obstructive pulmonary disease, unspecified (principal); K21.9 Gastro-esophageal reflux disease without esophagitis; F41.9 Anxiety disorder, unspecified; F32.9 Major depressive disorder, single episode, unspecified; G62.9 Polyneuropathy, unspecified; Z87.891 Personal history of nicotine dependence; Z20.828 Contact with and (suspected) exposure to other viral communicable diseases
CPT/HCPCS: 36415; 71046; 80053; 82550; 83615; 83690; 84484; 85025; 85610; 85730; 93005; 99285-25; U0002

== ENCOUNTER 2020-07-17 22:32 | Emergency (ER) | payer MEDICAID ==
[2020-07-17] MEDS: Aspirin 81 MG Tab.Chew PO ONE (22:36)
--- NOTE | 2020-07-17 23:04 | EDM.PDOC ---
ED HPI GENERAL MEDICAL PROBLEM - General Chief Complaint: General Stated Complaint: jaw pain, SOB Time Seen by Provider: 07/17/20 22:44 Source of Information: Reports: Patient History Limitations: Reports: No Limitations - History of Present Illness INITIAL COMMENTS - FREE TEXT/NARRATIVE: This patient is a 54 year old female that presents to the ER. Patient reports that this evening at 6pm she was out watering her cole when she started to get a dull pain in her left jaw. Patient reports also having a numbness pain to bilateral upper arms. Patient reports that the pain lasted until she arrived here in the ER. She reports now that she has arrived to the ER she is pain free. Patient reports a couple of days ago she was riding in the truck and had bilateral arm numbness and it went away. Patient reports that she has had nausea the past couple of days and vomited earlier today x2. Patient reports that she wears oxygen at home on 3L NC. Patient denies headache, dizziness, lightheaded, sinus pain, sinus pressure, congestion, drainage, more cough than usual, more shortness of breath than usual, chest pain, back pain, abd pain, urinary/bowel changes, rashes. Patient is alert and oriented. Onset: Today Onset Date: 07/17/20 Onset Time: 18:00 Location: Reports: Face (left jaw), Upper Extremity, Left, Upper Extremity, Right Quality: Reports: Dull (left jaw), Other (numbness bilateral arms) Severity: Mild Improves with: Reports: None Worsens with: Reports: None Associated Symptoms: Reports: Nausea/Vomiting. Denies: Confusion, Chest Pain, Cough, cough w sputum, Diaphoresis, Fever/Chills, Headaches, Loss of Appetite, Malaise, Rash, Seizure, Shortness of Breath (chronic, no more than usual per patient), Syncope, Weakness - Related Data Allergies Allergy/AdvReac Type Severity Reaction Status Date / Time No Known Allergies Allergy Verified 07/17/20 22:52 Home Meds: Home Meds Gabapentin 600 mg PO ASDIRECTED 03/02/14 [History] Cyanocobalamin (Vitamin B12) [Vitamin B12] 1,000 mcg IM Q30D 05/01/14 [History] Albuterol Sulfate [Proair Hfa] 2 puff INH Q4HR PRN 08/12/15 [History] Pantoprazole Sodium [Protonix] 40 mg PO DAILY 09/10/18 [History] Sucralfate 1 gm PO QID PRN 09/10/18 [History] Umeclidinium Brm/Vilanterol Tr [Anoro Ellipta 62.5-25 MCG] 1 puff IH DAILY 09/10/18 [History] rOPINIRole [Requip] 1 mg PO BEDTIME 09/10/18 [History] Mirtazapine 15 mg PO BEDTIME 08/24/19 [History] Ondansetron [Zofran ODT] 4 mg PO Q6H PRN #30 tab.dis 08/25/19 [Rx] LORazepam [Ativan] 1 mg PO BEDTIME 12/30/19 [History] dexAMETHasone [Dexamethasone] 6 mg PO DAILY 10 Days #10 tab 12/30/19 [Rx] Past Medical History HEENT History: Reports: Impaired Vision Other HEENT History: broke her glasses recently, hard to read without them Cardiovascular History: Reports: SOB on Exertion Respiratory History: Reports: Bronchitis, Recurrent, COPD, Pneumonia, Recurrent, Pneumothorax, SOB Other Respiratory History: Goal: to increase her activity with less SOB; says she gets SOB when trying to clean her house; 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 Rice in July Gastrointestinal History: Reports: GERD Other Gastrointestinal History: says her appetite is good Genitourinary History: Reports: None LOCATOR History: Reports: , Other (See Below) Other LOCATOR History: Adenocarcinoma of cervix; says some of her SOB and weakness has been since her cancer Musculoskeletal History: Reports: Other (See Below) Other Musculoskeletal History: leg nerve pain. Neurological History: Reports: Neuropathy, Peripheral Other Neuro History: B12 deficiency per history, headaches Psychiatric History: Reports: Anxiety, Depression Hematologic History: Reports: Anemia Oncologic (Cancer) History: Reports: Cervix Other Oncologic History: cervical cancer - Past Surgical History Cardiovascular Surgical History: Reports: None Respiratory Surgical History: Reports: Pneumonectomy Other Respiratory Surgeries/Procedures: hx of chest tube about 30 yrs ago GI Surgical History: Reports: Appendectomy Female Surgical History: Reports: Hysterectomy Musculoskeletal Surgical History: Reports: Other (See Below) Other Musculoskeletal Surgeries/Procedures:: peripheral neuropathy, nerve damage to her legs and arms Social & Family History - Family History Family Medical History: No Pertinent Family History Cardiac: Reports: Hypertension - Tobacco Use Tobacco Use Status *Q: Former Tobacco User Used Tobacco, but Quit: Yes Month/Year Tobacco Last Used: 5 years - Caffeine Use Caffeine Use: Reports: Coffee, Soda - Recreational Drug Use Recreational Drug Use: No ED ROS GENERAL - Review of Systems Review Of Systems: See Below Constitutional: Reports: No Symptoms HEENT: Reports: Other (left jaw pain) Respiratory: Reports: Shortness of Breath (chronic, no worse than usual per patient), Cough. Denies: Pleuritic Chest Pain, Sputum Cardiovascular: Reports: No Symptoms. Denies: Chest Pain, Dyspnea on Exertion, Edema, Lightheadedness, Palpitations, Syncope Endocrine: Reports: No Symptoms GI/Abdominal: Reports: Nausea, Vomiting. Denies: Abdominal Pain, Diarrhea : Reports: No Symptoms Musculoskeletal: Reports: Other (bilateral arm numbness) Skin: Reports: No Symptoms Neurological: Reports: Numbness (bilateral arm numbness). Denies: Confusion, Dizziness, Headache, Seizure, Syncope, Tingling, Tremors, Trouble Speaking, Difficulty Walking, Weakness, Change in Speech, Gait Disturbance Psychiatric: Reports: No Symptoms Hematologic/Lymphatic: Reports: No Symptoms Immunologic: Reports: No Symptoms ED EXAM, GENERAL - Physical Exam Exam: See Below Exam Limited By: No Limitations General Appearance: Alert, WD/WN, No Apparent Distress, Thin, Other (Chronicall ill appearing. On Oxygen at 2L NC. She normally wears 3L NC at home, on her travel machine and didnt want to run out. This was changed to the wall oxygen. ) Eye Exam: Bilateral Eye: Normal Inspection, PERRL Ears: Normal External Exam, Normal Canal, Hearing Grossly Normal, Normal TMs Ear Exam: Bilateral Ear: Auricle Normal, Canal Normal, TM normal Nose: Normal Inspection, Normal Mucosa, No Blood Throat/Mouth: Normal Inspection, Normal Lips, Normal Teeth, Normal Gums, Normal Oropharynx, Normal Voice, No Airway Compromise Head: Atraumatic, Normocephalic Neck: Normal Inspection, Supple, Non-Tender, Full Range of Motion Respiratory/Chest: No Respiratory Distress, Decreased Breath Sounds (moderately throughout), Rhonchi (moderate to severe throughout, chronic COPD) Cardiovascular: Normal Peripheral Pulses, No Edema, Tachycardia (110 on exam) Peripheral Pulses: 2+: Radial (L), Radial (R), Posterior Tibial (L), Posterior Tibial (R) GI/Abdominal: Normal Bowel Sounds, Soft, Non-Tender, No Organomegaly, No Distention, Pelvis Stable (Female) Exam: Deferred Rectal (Female) Exam: Deferred Back Exam: Normal Inspection, Full Range of Motion. No: CVA Tenderness (L), CVA Tenderness (R) Extremities: Normal Inspection, Normal Range of Motion, Non-Tender, No Pedal Edema, Normal Capillary Refill Neurological: Alert, Oriented, Normal Cognition, Normal Gait, No Motor/Sensory Deficits Psychiatric: Anxious Skin Exam: Warm, Dry, Intact, Normal Color, No Rash Lymphatic: No Adenopathy #1 Interpretation EKG Date: 07/17/20 Time: 22:35 Rhythm: Other (Sinus tach) Rate (Beats/Min): 112 QRS: Normal ST-T: Normal QT: Normal Comparison: No Change (previous shows sinus tach) Course - Vital Signs Last Recorded V/S: Last Vital Signs Temp 97.5 F 07/18/20 03:35 Pulse 84 07/18/20 03:35 Resp 18 07/18/20 03:35 BP 121/86 07/18/20 03:35 Pulse Ox 95 07/18/20 03:35 - Orders/Labs/Meds Orders: Active Orders 24 hr Category Date Time Status Chest 1V Frontal [CR] Stat Exams 07/17/20 22:55 Taken CULTURE BLOOD [BC] Stat Lab 07/17/20 23:35 Results CULTURE BLOOD [BC] Stat Lab 07/17/20 23:35 Results Blood Culture x2 Reflex Set [OM.PC] Stat Oth 07/17/20 22:53 Ordered Labs: Laboratory Tests 07/17/20 07/17/20 07/17/20 Range/Units 22:53 22:53 22:53 WBC 6.1 (4.0-11.0) 10^3/uL RBC 4.20 (4.00-5.50) x10^6/uL Hgb 12.9 (12.0-16.0) g/dL Hct 39.0 (37.0-47.0) % MCV 92.9 (83.0-97.0) fL MCH 30.7 (27.0-32.0) pg MCHC 33.1 (32.0-36.0) g/dL RDW Coeff of Estefanía 12.4 (11.0-15.0) % Plt Count 296 (150-400) 10^3/uL Immature Gran % (Auto) 0.2 (0.0-4.9) % Neut % (Auto) 71.3 H (41-71) % Lymph % (Auto) 16.2 L (24-44) % [facility] % (Auto) 10.0 (0-10) % Eos % (Auto) 1.8 (0-6) % Baso % (Auto) 0.5 (0-1) % Neut # (Auto) 4.35 (1.80-8.00) x10^3/uL Lymph # (Auto) 0.99 (0.60-5.00) 10^3/uL [facility] # (Auto) 0.61 (0.00-1.50) 10^3/uL Eos # (Auto) 0.11 (0.00-1.50) 10^3/uL Baso # (Auto) 0.03 (0.00-0.50) 10^3/uL Immature Gran # (Auto) 0.01 (0.00-0.49) 10^3/uL PT 10.4 (9.7-12.3) SEC INR 0.95 (0.92-1.18) Sodium (136-145) mEq/L Potassium (3.5-5.0) mEq/L Chloride (98-106) mEq/L Carbon Dioxide (21-32) mmol/L BUN (7-18) mg/dL Creatinine (0.6-1.0) mg/dL Est Cr Clr Drug Dosing mL/min Estimated GFR (MDRD) (>=60) mL/min Glucose (75-99) mg/dL Lactic Acid (0.4-2.0) mmol/L Calcium (8.4-10.1) mg/dL Total Bilirubin (0.0-1.0) mg/dL AST (15-37) U/L ALT (12-78) U/L Alkaline Phosphatase (46-116) U/L Lactate Dehydrogenase (100-190) U/L Creatine Kinase (21-215) U/L Troponin I (0.00-0.06) ng/mL C-Reactive Protein (0.2-0.8) mg/dL NT-Pro-B Natriuret Pep (0-1000) pg/mL Total Protein (6.4-8.2) g/dL Albumin (3.4-5.0) g/dL Amylase (25-115) U/L Lipase (73-393) U/L SARS CoV-2 RNA Rapid ALVARO Negative (NEGATIVE) 07/17/20 07/17/20 07/18/20 Range/Units 22:53 22:53 03:00 WBC (4.0-11.0) 10^3/uL RBC (4.00-5.50) x10^6/uL Hgb (12.0-16.0) g/dL Hct (37.0-47.0) % MCV (83.0-97.0) fL MCH (27.0-32.0) pg MCHC (32.0-36.0) g/dL RDW Coeff of Estefanía (11.0-15.0) % Plt Count (150-400) 10^3/uL Immature Gran % (Auto) (0.0-4.9) % Neut % (Auto) (41-71) % Lymph % (Auto) (24-44) % [facility] % (Auto) (0-10) % Eos % (Auto) (0-6) % Baso % (Auto) (0-1) % Neut # (Auto) (1.80-8.00) x10^3/uL Lymph # (Auto) (0.60-5.00) 10^3/uL [facility] # (Auto) (0.00-1.50) 10^3/uL Eos # (Auto) (0.00-1.50) 10^3/uL Baso # (Auto) (0.00-0.50) 10^3/uL Immature Gran # (Auto) (0.00-0.49) 10^3/uL PT (9.7-12.3) SEC INR (0.92-1.18) Sodium 142 (136-145) mEq/L Potassium 3.4 L (3.5-5.0) mEq/L Chloride 100 (98-106) mEq/L Carbon Dioxide 33 H (21-32) mmol/L BUN 13 (7-18) mg/dL Creatinine 0.7 (0.6-1.0) mg/dL Est Cr Clr Drug Dosing 80.32 mL/min Estimated GFR (MDRD) > 60 (>=60) mL/min Glucose 144 H (75-99) mg/dL Lactic Acid 1.4 (0.4-2.0) mmol/L Calcium 9.1 (8.4-10.1) mg/dL Total Bilirubin 0.3 (0.0-1.0) mg/dL AST 14 L (15-37) U/L ALT 13 (12-78) U/L Alkaline Phosphatase 96 (46-116) U/L Lactate Dehydrogenase 184 (100-190) U/L Creatine Kinase 58 (21-215) U/L Troponin I < 0.017 < 0.017 (0.00-0.06) ng/mL C-Reactive Protein 2.4 H (0.2-0.8) mg/dL NT-Pro-B Natriuret Pep 86 (0-1000) pg/mL Total Protein 7.5 (6.4-8.2) g/dL Albumin 3.6 (3.4-5.0) g/dL Amylase 50 (25-115) U/L Lipase 122 (73-393) U/L SARS CoV-2 RNA Rapid ALVARO (NEGATIVE) Meds: Medications Discontinued Medications Generic Name Dose Route Start Last Admin Trade Name Freq PRN Reason Stop Dose Admin Aspirin 324 mg 07/17/20 22:55 07/17/20 22:36 Aspirin 81 Mg Tab.Chew PO 07/17/20 22:56 324 mg ONETIME ONE Administration Ondansetron HCl 4 mg 07/17/20 22:55 07/17/20 23:05 Ondansetron 4 Mg/2 Ml Sdv IVPUSH 07/17/20 22:56 4 mg NOW STA Administration - Radiology Interpretation Free Text/Narrative:: CXR: Severe COPD - Re-Assessments/Exams Free Text/Narrative Re-Assessment/Exam: 07/18/20 00:30 Patient continues to be pain free. Will repeat a troponin, if negative will discharge home. 07/18/20 03:50 Troponin negative, patient pain free. Will discharge. Departure - Departure Time of Disposition: 04:00 Disposition: Home, Self-Care 01 Condition: Fair Clinical Impression: Jaw pain Nausea & vomiting Qualifiers: Vomiting type: bilious vomiting Qualified Code(s): R11.14 - Bilious vomiting - Discharge Information *PRESCRIPTION DRUG MONITORING PROGRAM REVIEWED*: Not Applicable *COPY OF PRESCRIPTION DRUG MONITORING REPORT IN PATIENT KAREN: Not Applicable Instructions: Chronic Obstructive Pulmonary Disease, [id number], Nonspecific Chest Pain, Adult, Nausea and Vomiting, Adult, [id number], Pain Without a Known Cause Referrals: Mavis Shine PA [Primary Care Provider] - Forms: ED Department Discharge Additional Instructions: Followup with your primary care provider Return to the ER for worsening of condition or any emergent concerns Go home and rest Sepsis Event Note (ED) - Evaluation Sepsis Screening Result: No Definite Risk - My Orders Last 24 Hours: My Active Orders 07/17/20 22:53 Blood Culture x2 Reflex Set [OM.PC] Stat 07/17/20 22:55 Chest 1V Frontal [CR] Stat 07/17/20 23:35 CULTURE BLOOD [BC] Stat CULTURE BLOOD [BC] Stat - Assessment/Plan Last 24 Hours: My Active Orders 07/17/20 22:53 Blood Culture x2 Reflex Set [OM.PC] Stat 07/17/20 22:55 Chest 1V Frontal [CR] Stat 07/17/20 23:35 CULTURE BLOOD [BC] Stat CULTURE BLOOD [BC] Stat Plan: PLEASE SEE RN NOTE FOR PFS
[2020-07-17] MEDS: Ondansetron 4 MG/2 ML SDV IVPUSH STA (23:05)
[2020-07-17 23:24] LABS: CHLORIDE,CL 100 mEq/L (98-106); SODIUM,NA 142 mEq/L (136-145)
[2020-07-18 03:51] VITALS: BP 121/86; PULSE 84
== END 2020-07-18 03:47 | disposition home or self-care (01) ==
LOC: CC.ED 22:32
DX: R68.84 Jaw pain (principal); R11.14 Bilious vomiting; J44.9 Chronic obstructive pulmonary disease, unspecified; K21.9 Gastro-esophageal reflux disease without esophagitis; G62.9 Polyneuropathy, unspecified; Z79.899 Other long term (current) drug therapy; Z87.891 Personal history of nicotine dependence; Z20.822 Contact with and (suspected) exposure to COVID-19
CPT/HCPCS: 36415; 71045; 80053; 82150; 82550; 83605; 83615; 83690; 83880; 84484; 85025; 85610; 86140; 87040; 93005; 96374; 99284-25; A9270-GY; J2405; U0002

== ENCOUNTER 2021-04-02 17:20 | Emergency (ER) | payer MEDICAID ==
[2021-04-02] MEDS ORDERED: Albuterol/Ipratropium 3.0-0.5 MG/3 ML Neb Soln NEB ONE (17:37)
[2021-04-02 17:52] VITALS: BP 149/99; PULSE 109
[2021-04-02 17:57] LABS: CHLORIDE,CL 102 mEq/L (98-106); SODIUM,NA 145 mEq/L (136-145)
[2021-04-02] MEDS ORDERED: Hydrocortisone Sodium Succinate 100 MG/2 ML SDV IVPUSH ONE (18:06)
[2021-04-02] MEDS ORDERED: methylPREDNISolone Sodium Succinate 125 MG/2 ML SDV IVPUSH SCH (18:15)
[2021-04-02] MEDS ORDERED: Take Home: predniSONE 20 MG, 2 Tab Pack PO ONE (18:24)
== END 2021-04-02 18:50 | disposition home or self-care (01) ==
LOC: CC.ED 17:20
DX: J44.1 Chronic obstructive pulmonary disease with (acute) exacerbation (principal); K21.9 Gastro-esophageal reflux disease without esophagitis; Z79.899 Other long term (current) drug therapy; Z86.16 Personal history of COVID-19; Z20.822 Contact with and (suspected) exposure to COVID-19
CPT/HCPCS: 36415; 71046; 80053; 84484; 85025; 85379; 86140; 87804; 93005; 93010; 94640; 96374; 99284; 99285-25; J2930; J7512; J7620-GY; U0002

== ENCOUNTER 2021-05-22 16:40 | Observation (INO) | payer MEDICAID ==
[~2021-05-22 16:40] MED LIST: Albuterol/Ipratropium 3.0-0.5 MG/3 ML Neb Soln ONE
[2021-05-22] MEDS ORDERED: methylPREDNISolone Sodium Succinate 125 MG/2 ML SDV IVPUSH ONE (17:02)
[2021-05-22] MEDS ORDERED: Albuterol/Ipratropium 3.0-0.5 MG/3 ML Neb Soln NEB ONE (17:33)
[2021-05-22 17:37] LABS: CHLORIDE,CL 102 mEq/L (98-106); SODIUM,NA 146 mEq/L (136-145)
[2021-05-22] MEDS ORDERED: Sodium Chloride 0.9% 1,000 ML IV SCH (18:30)
[2021-05-22] MEDS ORDERED: Albuterol 8 GM Inhaler INH PRN (19:32)
[2021-05-22] MEDS ORDERED: Ondansetron 4 MG Tab.DIS PO PRN (19:32)
[2021-05-22] MEDS: Amoxicillin/Clavulanate K 875-125 MG Tab PO SCH (20:00)
[2021-05-22] MEDS ORDERED: MIRTAZAPINE 15 MG PO SCH (20:00)
[2021-05-22] MEDS ORDERED: ROPINIROLE 1 MG PO SCH (20:00)
[2021-05-22] MEDS ORDERED: Gabapentin 300 MG Cap **OWN MED PO SCH (20:00)
[2021-05-23] MEDS ORDERED: Pantoprazole 40 MG Tab.CR **OWN MED PO SCH (07:00)
[2021-05-23] MEDS: Amoxicillin/Clavulanate K 875-125 MG Tab PO SCH (07:16)
[2021-05-23] MEDS ORDERED: UMECLIDINIUM BRM INH SCH (08:00)
[2021-05-23] MEDS ORDERED: Gabapentin 300 MG Cap **OWN MED PO SCH (08:00)
[2021-05-23] MEDS ORDERED: methylPREDNISolone Sodium Succinate 125 MG/2 ML SDV IVPUSH SCH (08:00)
[2021-05-23] MEDS ORDERED: VILANTEROL INH SCH (08:00)
[2021-05-23 08:15] VITALS: BP 134/75; PULSE 77
== END 2021-05-23 09:15 | disposition home or self-care (01) ==
LOC: SUPCPDRO 16:40 → CC.ED 16:40 → CC.MS 18:06 → UNDOADMOB 18:06 → CC.MS 18:14
PROVIDERS: ADMIT Nurse Practitioner Family; ATTEND Nurse Practitioner Family
DX: J44.1 Chronic obstructive pulmonary disease with (acute) exacerbation (principal); K21.9 Gastro-esophageal reflux disease without esophagitis; G62.9 Polyneuropathy, unspecified; F41.9 Anxiety disorder, unspecified; F32.A Depression, unspecified; Z98.890 Other specified postprocedural states; Z79.899 Other long term (current) drug therapy; Z20.822 Contact with and (suspected) exposure to COVID-19
CPT/HCPCS: 36415; 71045; 80053; 83605; 83735; 84484; 85025; 85379; 93005; 94640; 96374; 96376; 99217; 99220; 99285-25; A9270-GY; G0378; J2930; J7030; J7620-GY; U0002

== ENCOUNTER 2021-06-26 16:52 | Emergency (ER) | payer MEDICAID ==
[2021-06-26] MEDS ORDERED: Albuterol/Ipratropium 3.0-0.5 MG/3 ML Neb Soln NEB ONE ×2 (17:02→17:58)
[2021-06-26 17:24] LABS: CHLORIDE,CL 97 mEq/L (98-106); SODIUM,NA 138 mEq/L (136-145)
[2021-06-26] MEDS ORDERED: methylPREDNISolone Sodium Succinate 125 MG/2 ML SDV IVPUSH STA (17:32)
[2021-06-26 17:40] VITALS: BP 109/72; PULSE 105
[2021-06-26] MEDS ORDERED: Take Home: predniSONE 20 MG, 2 Tab Pack PO ONE (18:16)
== END 2021-06-26 18:47 | disposition home or self-care (01) ==
LOC: CC.ED 16:52
DX: J44.1 Chronic obstructive pulmonary disease with (acute) exacerbation (principal); K21.9 Gastro-esophageal reflux disease without esophagitis; Z79.899 Other long term (current) drug therapy; Z86.16 Personal history of COVID-19; Z20.822 Contact with and (suspected) exposure to COVID-19
CPT/HCPCS: 36415; 71045; 80053; 83735; 84484; 85025; 85379; 93005; 94640; 96374; 99284; 99285-25; J2930; J7512; J7620-GY; U0002

== ENCOUNTER 2021-10-28 17:18 | Inpatient (IN) | payer MEDICAID ==
[2021-10-28] MEDS ORDERED: Albuterol/Ipratropium 3.0-0.5 MG/3 ML Neb Soln NEB ONE (17:53)
[2021-10-28] MEDS ORDERED: methylPREDNISolone Sodium Succinate 125 MG/2 ML SDV IVPUSH STA (18:09)
[2021-10-28] MEDS ORDERED: Sodium Chloride 0.9% 1,000 ML IV ONE (18:32)
[2021-10-28] MEDS ORDERED: Ondansetron 4 MG/2 ML SDV IV PRN (19:11)
[2021-10-28] MEDS ORDERED: Albuterol 8 GM Inhaler INH PRN (19:11)
[2021-10-28] MEDS ORDERED: Acetaminophen 325 MG Tab PO PRN (19:11)
[2021-10-28] MEDS ORDERED: Ibuprofen 200 MG Tab PO PRN (19:11)
[2021-10-28] MEDS ORDERED: Ondansetron 4 MG Tab.DIS PO PRN (19:11)
[2021-10-28] MEDS ORDERED: Sodium Chloride 0.9% 10 ML Syringe FLUSH PRN (19:11)
[2021-10-28] MEDS ORDERED: Gabapentin 300 MG Cap PO SCH (19:15)
[2021-10-28] MEDS ORDERED: Cyanocobalamin (Vitamin B12) 1,000 MCG/ML SDV IM SCH (19:15)
[2021-10-28] MEDS: Enoxaparin 40 MG/0.4 ML Syringe SUBCUT SCH (20:15)
[2021-10-28] MEDS: Levofloxacin/Dextrose 5%-Water 750 MG in Premix Bag 1 BAG IV SCH (20:15)
[2021-10-28] MEDS: Albuterol/Ipratropium 3.0-0.5 MG/3 ML Neb Soln NEB SCH (20:16)
[2021-10-28] MEDS: Mirtazapine 15 MG Tab PO SCH (20:16)
[2021-10-28] MEDS: rOPINIRole 1 MG Tab PO SCH (20:16)
[2021-10-28] MEDS: Gabapentin 300 MG Cap PO SCH (20:51)
[2021-10-29] MEDS: Pantoprazole 40 MG Tab.CR PO SCH (06:49)
[2021-10-29] MEDS: methylPREDNISolone Sodium Succinate 125 MG/2 ML SDV IVPUSH SCH ×2 (07:44→19:29)
[2021-10-29] MEDS: Albuterol/Ipratropium 3.0-0.5 MG/3 ML Neb Soln NEB SCH ×4 (07:44→19:33)
[2021-10-29] MEDS: Gabapentin 300 MG Cap PO SCH ×3 (07:44→19:29)
[2021-10-29] MEDS ORDERED: Non-Formulary Medication 1 Each (Umeclidinium Brm/Vilanterol Tr [Anoro Ellipta 62.5-25 Mcg INH SCH (08:00)
[2021-10-29] MEDS: Mirtazapine 15 MG Tab PO SCH (19:29)
[2021-10-29] MEDS: rOPINIRole 1 MG Tab PO SCH (19:29)
[2021-10-29] MEDS: Levofloxacin/Dextrose 5%-Water 750 MG in Premix Bag 1 BAG IV SCH (19:30)
[2021-10-29] MEDS: Enoxaparin 40 MG/0.4 ML Syringe SUBCUT SCH (20:12)
[2021-10-30] MEDS: Pantoprazole 40 MG Tab.CR PO SCH (07:35)
[2021-10-30] MEDS: methylPREDNISolone Sodium Succinate 125 MG/2 ML SDV IVPUSH SCH ×2 (07:36→19:21)
[2021-10-30] MEDS: Gabapentin 300 MG Cap PO SCH ×3 (07:36→19:21)
[2021-10-30] MEDS: Albuterol/Ipratropium 3.0-0.5 MG/3 ML Neb Soln NEB SCH ×4 (07:36→19:32)
[2021-10-30] MEDS: rOPINIRole 1 MG Tab PO SCH (19:21)
[2021-10-30] MEDS: Mirtazapine 15 MG Tab PO SCH (19:21)
[2021-10-30] MEDS: Levofloxacin/Dextrose 5%-Water 750 MG in Premix Bag 1 BAG IV SCH (19:22)
[2021-10-30] MEDS: Enoxaparin 40 MG/0.4 ML Syringe SUBCUT SCH (20:00)
[2021-10-31] MEDS: methylPREDNISolone Sodium Succinate 125 MG/2 ML SDV IVPUSH SCH (07:46)
[2021-10-31] MEDS: Albuterol/Ipratropium 3.0-0.5 MG/3 ML Neb Soln NEB SCH (07:46)
[2021-10-31] MEDS: Pantoprazole 40 MG Tab.CR PO SCH (07:46)
[2021-10-31] MEDS: Gabapentin 300 MG Cap PO SCH (07:46)
[2021-10-31 08:35] VITALS: BP 132/65; PULSE 85
== END 2021-10-31 10:05 | disposition home or self-care (01) | DRG 192 ==
LOC: CC.ED 17:18 → UNDOADMIN 18:47 → CC.MS 18:47 → UNDODISIN 10-31 10:05
PROVIDERS: ADMIT Nurse Practitioner Family; ATTEND Nurse Practitioner Family
DX: J44.1 Chronic obstructive pulmonary disease with (acute) exacerbation (principal); R50.9 Fever, unspecified; Z20.822 Contact with and (suspected) exposure to COVID-19; R53.1 Weakness; R06.02 Shortness of breath; R79.82 Elevated C-reactive protein (CRP); H54.7 Unspecified visual loss; K21.9 Gastro-esophageal reflux disease without esophagitis; E53.8 Deficiency of other specified B group vitamins; F41.9 Anxiety disorder, unspecified; F32.A Depression, unspecified; D64.9 Anemia, unspecified; G62.9 Polyneuropathy, unspecified; E86.0 Dehydration; Z85.41 Personal history of malignant neoplasm of cervix uteri; Z79.899 Other long term (current) drug therapy; Z87.01 Personal history of pneumonia (recurrent); Z90.49 Acquired absence of other specified parts of digestive tract; Z90.710 Acquired absence of both cervix and uterus
CPT/HCPCS: 36415; 71045; 80053; 81001; 83605; 85025; 86140; 87040; 87070; 87205; 87804; 93005; 93010; 94640; 96361; 96374; 99223; 99232; 99233; 99239; 99285-25; A9270-GY; J1650; J1956; J2930; J7030; J7620-GY; U0002

== ENCOUNTER 2021-12-24 11:40 | Emergency (ER) | payer MEDICAID ==
[2021-12-24] MEDS ORDERED: Albuterol/Ipratropium 3.0-0.5 MG/3 ML Neb Soln NEB ONE ×2 (11:58→12:49)
[2021-12-24] MEDS ORDERED: Dexamethasone 4 MG/ML SDV PO ONE (12:50)
[2021-12-24] MEDS ORDERED: Take Home: predniSONE 20 MG, 2 Tab Pack PO ONE (12:55)
[2021-12-24] MEDS ORDERED: Azithromycin 250 MG Tab PO ONE (12:55)
[2021-12-24] MEDS ORDERED: Take Home: Azithromycin 250 MG, 2 Tab Pack PO ONE (12:55)
[2021-12-24 12:58] LABS: CORONAVIRUS COVID-19 NAA NEGATIVE (NEGATIVE); RESPIRATORY SYNCYTIAL VIR NAA NEGATIVE (NEGATIVE)
[2021-12-24] MEDS ORDERED: Dexamethasone 4 MG Tab PO ONE (13:15)
[2021-12-24 13:24] VITALS: BP 139/67; PULSE 108
[2021-12-24] MEDS ORDERED: Potassium Chloride 10 MEQ Tab.ER PO STA (13:56)
[2021-12-24] MEDS ORDERED: Potassium Chloride 10 MEQ Tab.ER ONE (14:26)
== END 2021-12-24 14:03 | disposition home or self-care (01) ==
LOC: CC.ED 11:40
DX: J18.9 Pneumonia, unspecified organism (principal); J44.0 Chronic obstructive pulmonary disease with (acute) lower respiratory infection; J90 Pleural effusion, not elsewhere classified; K21.9 Gastro-esophageal reflux disease without esophagitis; Z79.899 Other long term (current) drug therapy; Z87.891 Personal history of nicotine dependence; Z20.822 Contact with and (suspected) exposure to COVID-19
CPT/HCPCS: 0241U; 36415; 71046; 80048; 85025; 94640; 99285; A9270-GY; J7512; J7620-GY; J8540

== ENCOUNTER 2021-12-30 07:50 | Inpatient (IN) | payer MEDICAID ==
[2021-12-30 09:06] LABS: CHLORIDE,CL 97 mEq/L (98-106); SODIUM,NA 142 mEq/L (136-145)
[2021-12-30 09:18] LABS: CORONAVIRUS COVID-19 NAA NEGATIVE (NEGATIVE); RESPIRATORY SYNCYTIAL VIR NAA NEGATIVE (NEGATIVE)
[2021-12-30 09:24] LABS: ESTIMATED GFR 115 mL/min (>=60)
[2021-12-30] MEDS ORDERED: Enoxaparin 40 MG/0.4 ML Syringe SUBCUT SCH (11:41)
[2021-12-30] MEDS ORDERED: Acetaminophen 325 MG Tab PO PRN (11:41)
[2021-12-30] MEDS ORDERED: Ondansetron 4 MG Tab.DIS PO PRN (11:41)
[2021-12-30] MEDS ORDERED: Ondansetron 4 MG/2 ML SDV IV PRN (11:41)
[2021-12-30] MEDS ORDERED: Ibuprofen 200 MG Tab PO PRN (11:41)
[2021-12-30] MEDS ORDERED: Albuterol 0.083% 2.5 MG/3 ML Neb Soln NEB PRN (11:41)
[2021-12-30] MEDS ORDERED: Sodium Chloride 0.9% 10 ML Syringe FLUSH PRN (11:41)
[2021-12-30] MEDS: Sodium Chloride 0.9% 1,000 ML IV SCH (11:47)
[2021-12-30] MEDS: Albuterol/Ipratropium 3.0-0.5 MG/3 ML Neb Soln NEB SCH ×4 (11:48→19:55)
[2021-12-30] MEDS: methylPREDNISolone Sodium Succinate 125 MG/2 ML SDV IVPUSH SCH (11:48)
[2021-12-30] MEDS: Levofloxacin/Dextrose 5%-Water 750 MG in Premix Bag 1 BAG IV SCH (11:49)
[2021-12-30] MEDS: Gabapentin 300 MG Cap PO SCH ×2 (13:08→19:53)
[2021-12-30] MEDS ORDERED: Pantoprazole 40 MG Tab.CR PO ONE (13:15)
[2021-12-30] MEDS: Enoxaparin 40 MG/0.4 ML Syringe SUBCUT SCH (19:53)
[2021-12-30] MEDS: Mirtazapine 15 MG Tab PO SCH (19:54)
[2021-12-30] MEDS: rOPINIRole 1 MG Tab PO SCH (19:54)
[2021-12-31] MEDS: Sodium Chloride 0.9% 1,000 ML IV SCH ×2 (01:20→16:08)
[2021-12-31] MEDS ORDERED: Non-Formulary Medication 1 Each (Umeclidinium Brm/Vilanterol Tr [Anoro Ellipta 62.5-25 Mcg INH SCH (08:00)
[2021-12-31] MEDS: Albuterol/Ipratropium 3.0-0.5 MG/3 ML Neb Soln NEB SCH ×4 (08:13→20:13)
[2021-12-31] MEDS: Gabapentin 300 MG Cap PO SCH ×3 (08:13→20:14)
[2021-12-31] MEDS: Pantoprazole 40 MG Tab.CR PO SCH (08:13)
[2021-12-31] MEDS: Potassium Chloride 10 MEQ Tab.ER PO SCH (08:13)
[2021-12-31] MEDS: methylPREDNISolone Sodium Succinate 125 MG/2 ML SDV IVPUSH SCH (11:10)
[2021-12-31] MEDS: Levofloxacin/Dextrose 5%-Water 750 MG in Premix Bag 1 BAG IV SCH (11:13)
[2021-12-31] MEDS ORDERED: guaiFENesin 200 MG Tab PO PRN (16:53)
[2021-12-31] MEDS: Enoxaparin 40 MG/0.4 ML Syringe SUBCUT SCH (20:12)
[2021-12-31] MEDS: rOPINIRole 1 MG Tab PO SCH (20:13)
[2021-12-31] MEDS: Mirtazapine 15 MG Tab PO SCH (20:13)
[2022-01-01] MEDS: Sodium Chloride 0.9% 1,000 ML IV SCH (05:31)
[2022-01-01] MEDS: Pantoprazole 40 MG Tab.CR PO SCH (06:41)
[2022-01-01] MEDS: Gabapentin 300 MG Cap PO SCH ×3 (07:51→20:03)
[2022-01-01] MEDS: Potassium Chloride 10 MEQ Tab.ER PO SCH (07:51)
[2022-01-01] MEDS: Albuterol/Ipratropium 3.0-0.5 MG/3 ML Neb Soln NEB SCH ×5 (07:51→20:03)
[2022-01-01] MEDS: methylPREDNISolone Sodium Succinate 125 MG/2 ML SDV IVPUSH SCH (11:18)
[2022-01-01] MEDS: Levofloxacin/Dextrose 5%-Water 750 MG in Premix Bag 1 BAG IV SCH (11:20)
[2022-01-01] MEDS ORDERED: Potassium Chloride 10 MEQ Tab.ER PO ONE (11:45)
[2022-01-01] MEDS: LORazepam 0.5 MG Tab PO PRN (12:01)
[2022-01-01] MEDS: Mirtazapine 15 MG Tab PO SCH (20:03)
[2022-01-01] MEDS: Enoxaparin 40 MG/0.4 ML Syringe SUBCUT SCH (20:04)
[2022-01-01] MEDS: rOPINIRole 1 MG Tab PO SCH (20:04)
[2022-01-02] MEDS: Pantoprazole 40 MG Tab.CR PO SCH (06:43)
[2022-01-02] MEDS: LORazepam 0.5 MG Tab PO PRN (07:21)
[2022-01-02] MEDS: Gabapentin 300 MG Cap PO SCH ×3 (07:21→19:48)
[2022-01-02] MEDS: Albuterol/Ipratropium 3.0-0.5 MG/3 ML Neb Soln NEB SCH ×5 (07:21→20:00)
[2022-01-02] MEDS: Potassium Chloride 10 MEQ Tab.ER PO SCH (07:22)
[2022-01-02] MEDS ORDERED: Escitalopram 10 MG Tab PO SCH (09:30)
[2022-01-02] MEDS ORDERED: Potassium Chloride 10 MEQ Tab.ER PO ONE ×2 (10:11→12:00)
[2022-01-02] MEDS: Levofloxacin 500 MG Tab PO SCH (11:49)
[2022-01-02] MEDS: Escitalopram 10 MG Tab PO SCH (11:50)
[2022-01-02] MEDS: methylPREDNISolone Sodium Succinate 125 MG/2 ML SDV IVPUSH SCH ×2 (11:50→19:50)
[2022-01-02] MEDS ORDERED: LORazepam 0.5 MG Tab PO PRN (14:05)
[2022-01-02] MEDS: Mirtazapine 15 MG Tab PO SCH (19:48)
[2022-01-02] MEDS: rOPINIRole 1 MG Tab PO SCH (19:48)
[2022-01-02] MEDS: LORazepam 0.5 MG Tab PO SCH (19:49)
[2022-01-02] MEDS: Enoxaparin 40 MG/0.4 ML Syringe SUBCUT SCH (19:50)
[2022-01-03] MEDS: Pantoprazole 40 MG Tab.CR PO SCH (07:17)
[2022-01-03] MEDS ORDERED: Potassium Chloride 10 MEQ Tab.ER PO SCH (08:00)
[2022-01-03] MEDS: methylPREDNISolone Sodium Succinate 125 MG/2 ML SDV IVPUSH SCH (08:01)
[2022-01-03] MEDS: Albuterol/Ipratropium 3.0-0.5 MG/3 ML Neb Soln NEB SCH ×2 (08:01→12:21)
[2022-01-03] MEDS: Escitalopram 10 MG Tab PO SCH (08:03)
[2022-01-03] MEDS: Gabapentin 300 MG Cap PO SCH ×2 (08:04→14:06)
[2022-01-03] MEDS: LORazepam 0.5 MG Tab PO SCH (09:12)
[2022-01-03] MEDS ORDERED: LORazepam 0.5 MG Tab PO PRN (10:26)
[2022-01-03 11:48] VITALS: BP 109/69; PULSE 96
[2022-01-03] MEDS: Levofloxacin 500 MG Tab PO SCH (12:20)
[2022-01-03] MEDS ORDERED: LORazepam 0.5 MG Tab PO SCH (20:00)
== END 2022-01-03 15:04 | disposition swing bed (61) | DRG 190 ==
LOC: CC.ED 07:50 → CC.MS 11:26
PROVIDERS: ADMIT Nurse Practitioner Family; ATTEND Nurse Practitioner Family
DX: J44.0 Chronic obstructive pulmonary disease with (acute) lower respiratory infection (principal); J18.9 Pneumonia, unspecified organism; F33.2 Major depressive disorder, recurrent severe without psychotic features; J44.1 Chronic obstructive pulmonary disease with (acute) exacerbation; R53.81 Other malaise; L21.9 Seborrheic dermatitis, unspecified; R09.02 Hypoxemia; Z79.899 Other long term (current) drug therapy; F32.A Depression, unspecified; F41.9 Anxiety disorder, unspecified; Z20.822 Contact with and (suspected) exposure to COVID-19; R53.1 Weakness; K21.9 Gastro-esophageal reflux disease without esophagitis; D64.9 Anemia, unspecified; Z90.49 Acquired absence of other specified parts of digestive tract; Z90.89 Acquired absence of other organs; Z85.41 Personal history of malignant neoplasm of cervix uteri; Z97.3 Presence of spectacles and contact lenses; Z98.890 Other specified postprocedural states; Z90.710 Acquired absence of both cervix and uterus; Z86.16 Personal history of COVID-19
CPT/HCPCS: 0241U; 36415; 71046; 71275; 80053; 83605; 83880; 84484; 85025; 85379; 86140; 87040; 87070; 87205; 93005; 94640; 97110; 97161; 99285; A9270-GY; J1650; J1956; J2930; J7030; J7620-GY

== ENCOUNTER 2022-01-03 14:23 | Inpatient (IN) | payer MEDICAID ==
[2022-01-03] MEDS ORDERED: Ondansetron 4 MG Tab.DIS PO PRN (14:35)
[2022-01-03] MEDS ORDERED: Albuterol 0.083% 2.5 MG/3 ML Neb Soln NEB PRN (14:35)
[2022-01-03] MEDS ORDERED: Acetaminophen 325 MG Tab PO PRN (14:35)
[2022-01-03] MEDS ORDERED: guaiFENesin 200 MG Tab PO PRN (14:35)
[2022-01-03] MEDS ORDERED: LORazepam 0.5 MG Tab PO PRN (14:35)
[2022-01-03] MEDS ORDERED: Ibuprofen 200 MG Tab PO PRN (14:35)
[2022-01-03] MEDS: Albuterol/Ipratropium 3.0-0.5 MG/3 ML Neb Soln NEB SCH ×2 (15:29→19:23)
[2022-01-03] MEDS: Gabapentin 300 MG Cap PO SCH (19:33)
[2022-01-03] MEDS: LORazepam 0.5 MG Tab PO SCH (19:33)
[2022-01-03] MEDS: rOPINIRole 1 MG Tab PO SCH (19:34)
[2022-01-03] MEDS: Mirtazapine 15 MG Tab PO SCH (19:34)
[2022-01-03] MEDS: Enoxaparin 40 MG/0.4 ML Syringe SUBCUT SCH (19:35)
[2022-01-03] MEDS ORDERED: methylPREDNISolone Sodium Succinate 125 MG/2 ML SDV IVPUSH ONE (20:00)
[2022-01-04] MEDS: Pantoprazole 40 MG Tab.CR PO SCH (06:27)
[2022-01-04] MEDS ORDERED: Non-Formulary Medication 1 Each (Umeclidinium Brm/Vilanterol Tr [Anoro Ellipta 62.5-25 Mcg INH SCH (08:00)
[2022-01-04] MEDS: Albuterol/Ipratropium 3.0-0.5 MG/3 ML Neb Soln NEB SCH ×4 (08:10→20:03)
[2022-01-04] MEDS: LORazepam 0.5 MG Tab PO SCH ×2 (08:10→19:29)
[2022-01-04] MEDS: Potassium Chloride 10 MEQ Tab.ER PO SCH (08:11)
[2022-01-04] MEDS: Gabapentin 300 MG Cap PO SCH ×3 (08:11→19:30)
[2022-01-04] MEDS: Escitalopram 10 MG Tab PO SCH (08:11)
[2022-01-04] MEDS: predniSONE 20 MG Tab PO SCH (08:12)
[2022-01-04] MEDS ORDERED: Cyanocobalamin (Vitamin B12) 1,000 MCG/ML SDV IM ONE (10:45)
[2022-01-04] MEDS: Nystatin Susp 100,000 Unit/ML 5 ML UD Cup PO SCH ×2 (13:47→19:30)
[2022-01-04] MEDS: Enoxaparin 40 MG/0.4 ML Syringe SUBCUT SCH (19:30)
[2022-01-04] MEDS: rOPINIRole 1 MG Tab PO SCH (19:32)
[2022-01-04] MEDS: Mirtazapine 15 MG Tab PO SCH (19:32)
[2022-01-05] MEDS: Pantoprazole 40 MG Tab.CR PO SCH (06:52)
[2022-01-05] MEDS: Nystatin Susp 100,000 Unit/ML 5 ML UD Cup PO SCH ×2 (07:46→20:05)
[2022-01-05] MEDS: Albuterol/Ipratropium 3.0-0.5 MG/3 ML Neb Soln NEB SCH ×5 (07:47→20:04)
[2022-01-05] MEDS: Gabapentin 300 MG Cap PO SCH ×3 (07:48→20:05)
[2022-01-05] MEDS: Escitalopram 10 MG Tab PO SCH (07:48)
[2022-01-05] MEDS: predniSONE 20 MG Tab PO SCH (07:48)
[2022-01-05] MEDS: Potassium Chloride 10 MEQ Tab.ER PO SCH (07:48)
[2022-01-05] MEDS: LORazepam 0.5 MG Tab PO SCH ×3 (07:49→20:04)
[2022-01-05] MEDS: Enoxaparin 40 MG/0.4 ML Syringe SUBCUT SCH (20:04)
[2022-01-05] MEDS: rOPINIRole 1 MG Tab PO SCH (20:05)
[2022-01-05] MEDS: Mirtazapine 15 MG Tab PO SCH (20:05)
[2022-01-06] MEDS: Pantoprazole 40 MG Tab.CR PO SCH (06:24)
[2022-01-06] MEDS: Nystatin Susp 100,000 Unit/ML 5 ML UD Cup PO SCH ×2 (07:50→19:25)
[2022-01-06] MEDS: Albuterol/Ipratropium 3.0-0.5 MG/3 ML Neb Soln NEB SCH ×5 (07:50→19:54)
[2022-01-06] MEDS: Potassium Chloride 10 MEQ Tab.ER PO SCH (07:50)
[2022-01-06] MEDS: Gabapentin 300 MG Cap PO SCH ×3 (07:51→19:26)
[2022-01-06] MEDS: predniSONE 20 MG Tab PO SCH (07:51)
[2022-01-06] MEDS: Escitalopram 10 MG Tab PO SCH (07:51)
[2022-01-06] MEDS: LORazepam 0.5 MG Tab PO SCH ×2 (07:51→19:26)
[2022-01-06] MEDS: Al and Mag Hydroxide/Diphenhydramine/Lidocaine/Simethicone 237 ML Bottle PO PRN ×2 (12:50→17:36)
[2022-01-06] MEDS: Enoxaparin 40 MG/0.4 ML Syringe SUBCUT SCH (19:25)
[2022-01-06] MEDS: rOPINIRole 1 MG Tab PO SCH (19:25)
[2022-01-06] MEDS: Mirtazapine 15 MG Tab PO SCH (19:27)
[2022-01-07] MEDS: Pantoprazole 40 MG Tab.CR PO SCH (06:29)
[2022-01-07] MEDS: predniSONE 20 MG Tab PO SCH (07:26)
[2022-01-07] MEDS: Escitalopram 10 MG Tab PO SCH (07:26)
[2022-01-07] MEDS: Potassium Chloride 10 MEQ Tab.ER PO SCH (07:26)
[2022-01-07] MEDS: Gabapentin 300 MG Cap PO SCH ×3 (07:27→21:06)
[2022-01-07] MEDS: LORazepam 0.5 MG Tab PO SCH ×2 (07:27→21:04)
[2022-01-07] MEDS: Nystatin Susp 100,000 Unit/ML 5 ML UD Cup PO SCH ×2 (07:27→21:06)
[2022-01-07] MEDS: Al and Mag Hydroxide/Diphenhydramine/Lidocaine/Simethicone 237 ML Bottle PO PRN (07:27)
[2022-01-07] MEDS: Albuterol/Ipratropium 3.0-0.5 MG/3 ML Neb Soln NEB SCH ×4 (07:27→21:04)
[2022-01-07] MEDS: Enoxaparin 40 MG/0.4 ML Syringe SUBCUT SCH (21:05)
[2022-01-07] MEDS: rOPINIRole 1 MG Tab PO SCH (21:06)
[2022-01-07] MEDS: Mirtazapine 15 MG Tab PO SCH (21:06)
[2022-01-08] MEDS: Pantoprazole 40 MG Tab.CR PO SCH (07:17)
[2022-01-08] MEDS: LORazepam 0.5 MG Tab PO SCH ×2 (07:49→19:24)
[2022-01-08] MEDS: Gabapentin 300 MG Cap PO SCH ×3 (07:49→19:23)
[2022-01-08] MEDS: Escitalopram 10 MG Tab PO SCH (07:49)
[2022-01-08] MEDS: Albuterol/Ipratropium 3.0-0.5 MG/3 ML Neb Soln NEB SCH ×4 (07:49→19:24)
[2022-01-08] MEDS: predniSONE 20 MG Tab PO SCH (07:49)
[2022-01-08] MEDS: Nystatin Susp 100,000 Unit/ML 5 ML UD Cup PO SCH ×2 (07:49→19:23)
[2022-01-08] MEDS: Potassium Chloride 10 MEQ Tab.ER PO SCH (07:49)
[2022-01-08] MEDS: Mirtazapine 15 MG Tab PO SCH (19:23)
[2022-01-08] MEDS: Enoxaparin 40 MG/0.4 ML Syringe SUBCUT SCH (19:23)
[2022-01-08] MEDS: rOPINIRole 1 MG Tab PO SCH (19:23)
[2022-01-09] MEDS: Nystatin Susp 100,000 Unit/ML 5 ML UD Cup PO SCH ×2 (07:34→19:44)
[2022-01-09] MEDS: Potassium Chloride 10 MEQ Tab.ER PO SCH (07:34)
[2022-01-09] MEDS: Gabapentin 300 MG Cap PO SCH ×3 (07:34→19:44)
[2022-01-09] MEDS: Escitalopram 10 MG Tab PO SCH (07:34)
[2022-01-09] MEDS: Albuterol/Ipratropium 3.0-0.5 MG/3 ML Neb Soln NEB SCH ×4 (07:34→19:46)
[2022-01-09] MEDS: Pantoprazole 40 MG Tab.CR PO SCH (07:34)
[2022-01-09] MEDS: LORazepam 0.5 MG Tab PO SCH ×2 (07:35→19:44)
[2022-01-09] MEDS: Enoxaparin 40 MG/0.4 ML Syringe SUBCUT SCH (19:43)
[2022-01-09] MEDS: rOPINIRole 1 MG Tab PO SCH (19:44)
[2022-01-09] MEDS: Mirtazapine 15 MG Tab PO SCH (19:44)
[2022-01-10] MEDS: Pantoprazole 40 MG Tab.CR PO SCH (06:57)
[2022-01-10] MEDS: Gabapentin 300 MG Cap PO SCH ×3 (07:53→20:22)
[2022-01-10] MEDS: Albuterol/Ipratropium 3.0-0.5 MG/3 ML Neb Soln NEB SCH ×4 (07:53→21:00)
[2022-01-10] MEDS: Potassium Chloride 10 MEQ Tab.ER PO SCH (07:53)
[2022-01-10] MEDS: Nystatin Susp 100,000 Unit/ML 5 ML UD Cup PO SCH ×2 (07:53→20:22)
[2022-01-10] MEDS: LORazepam 0.5 MG Tab PO SCH ×2 (07:54→20:23)
[2022-01-10] MEDS: Escitalopram 10 MG Tab PO SCH (07:56)
[2022-01-10] MEDS: Enoxaparin 40 MG/0.4 ML Syringe SUBCUT SCH (20:22)
[2022-01-10] MEDS: Mirtazapine 15 MG Tab PO SCH (20:22)
[2022-01-10] MEDS: rOPINIRole 1 MG Tab PO SCH (20:22)
[2022-01-11] MEDS: Pantoprazole 40 MG Tab.CR PO SCH (06:56)
[2022-01-11] MEDS: Albuterol/Ipratropium 3.0-0.5 MG/3 ML Neb Soln NEB SCH ×4 (07:44→19:55)
[2022-01-11] MEDS: Potassium Chloride 10 MEQ Tab.ER PO SCH (07:45)
[2022-01-11] MEDS: LORazepam 0.5 MG Tab PO SCH ×2 (07:45→19:35)
[2022-01-11] MEDS: Nystatin Susp 100,000 Unit/ML 5 ML UD Cup PO SCH ×2 (07:45→19:37)
[2022-01-11] MEDS: Escitalopram 10 MG Tab PO SCH (07:45)
[2022-01-11] MEDS: Gabapentin 300 MG Cap PO SCH ×3 (07:45→19:37)
[2022-01-11] MEDS: Mirtazapine 15 MG Tab PO SCH (19:37)
[2022-01-11] MEDS: Enoxaparin 40 MG/0.4 ML Syringe SUBCUT SCH (19:37)
[2022-01-11] MEDS: rOPINIRole 1 MG Tab PO SCH (19:38)
[2022-01-12] MEDS: Pantoprazole 40 MG Tab.CR PO SCH (06:33)
[2022-01-12] MEDS: Albuterol/Ipratropium 3.0-0.5 MG/3 ML Neb Soln NEB SCH (07:40)
[2022-01-12] MEDS: Nystatin Susp 100,000 Unit/ML 5 ML UD Cup PO SCH (07:40)
[2022-01-12] MEDS: LORazepam 0.5 MG Tab PO SCH (07:40)
[2022-01-12 07:41] VITALS: BP 105/72; PULSE 96
[2022-01-12] MEDS: Escitalopram 10 MG Tab PO SCH (07:41)
[2022-01-12] MEDS: Gabapentin 300 MG Cap PO SCH (07:41)
[2022-01-12] MEDS: Potassium Chloride 10 MEQ Tab.ER PO SCH (07:41)
== END 2022-01-12 09:40 | DRG 948 ==
LOC: CC.MS 14:35
PROVIDERS: ADMIT Physician Assistant Medical; ATTEND Physician Assistant Medical
DX: R53.81 Other malaise (principal); J44.1 Chronic obstructive pulmonary disease with (acute) exacerbation; Z20.822 Contact with and (suspected) exposure to COVID-19; R53.1 Weakness; F32.A Depression, unspecified; Z79.52 Long term (current) use of systemic steroids; Z79.899 Other long term (current) drug therapy
CPT/HCPCS: 36415; 80053; 81003; 85025; 94640; 97110-GP; 99307; 99316; A9270-GY; J1650; J2930; J3420; J7512; J7620-GY; U0002